=== PATIENT | female | born 1960 | race African-American/Black ===

== ENCOUNTER 2023-10-15 10:54 | Inpatient (IN) | payer MEDICAID, OTHER ==
[~2023-10-15] VITALS: Ht 162.6 cm; Wt 79.2 kg
[~2023-10-15 10:54] MED LIST: ACET-6 PO; BISA-65 PO; HYDR-3682 PO; HYDR-4798 PO; MIRT1TAB PO; RISP1TAB63 PO; SOLI10TA39 PO
[2023-10-15 12:02] LABS: Basophils # (auto) 0 10 ^3/uL (0-0.2); Basophils % (auto) 0.3 % (0.0-2.0); Eosinophils # (auto) 0 10 ^3/uL (0-0.8); Hematocrit 35.3 % (36.0-46.0); Hemoglobin 11.6 g/dL (12.2-16.2); Lymphocytes # (auto) 1.4 10 ^3/uL (0.4-5.4); Lymphocytes % (auto) 15.5 % (10.0-50.0); Mean Corpuscular Hgb Conc. 32.8 g/dL (32.0-36.0); Mean Corpuscular Volume 82.3 fL (80.0-100.0); Monocytes # (auto) 0.6 10 ^3/uL (0-1.3); Neutrophils % (auto) 77.2 % (37.0-80.0); Nucleated Red Blood Cells % 0.1 %; Platelet Count (auto) 366 10^3/uL (140-450); Red Blood Cells 4.29 10^6/uL (4.0-5.20); Red Cell Distribution Width 15.5 % (11.8-14.3)
[2023-10-15 12:21] LABS: Acetaminophen < 2.0 UG/ML (10.0-20.0); Alanine Aminotransferase 21 U/L (7-40); Albumin 4.8 g/dL (3.2-4.8); Alkaline Phosphatase 82 U/L (46-116); Anion Gap 4 (5-15); Aspartate Aminotransferase 54 U/L (13-40); BUN/Creatinine Ratio 16.8 (10.0-20.0); Blood Alcohol < 3.0 mg/dL (<10); Blood Urea Nitrogen 30 mg/dL (9-23); Calcium 9.8 mg/dL (8.7-10.4); Carbon Dioxide 27 mmol/L (20-30); Chloride 103 mmol/L (98-107); Glucose 130 mg/dL (74-106); Potassium 3.8 mmol/L (3.5-5.1); Sodium 134 mmol/L (136-145)
[2023-10-15 12:22] LABS: Bilirubin, Total 0.5 mg/dL (0.2-1.0)
[2023-10-15 12:26] LABS: Salicylate < 3.0 mg/dL (2.8-20.0)
[2023-10-15 12:42] VITALS: PULSE 86; RESP 18; O2SAT 95
[2023-10-15] MEDS ORDERED: DEXTROSE (50%) 50ML SYRG IV PRN (14:30)
[2023-10-15] MEDS ORDERED: ONDANSETRON HCL 4 MG/2 ML VIAL IV PRN (14:30)
[2023-10-15] MEDS ORDERED: DOCUSATE SOD 100 MG CAP PO PRN (14:30)
[2023-10-15] MEDS ORDERED: ACETAMINOPHEN 325 MG TAB PO PRN (14:30)
[2023-10-15] MEDS: SODIUM CHLORIDE 0.9% 1,000 ML IV SCH (14:30)
[2023-10-15] MEDS ORDERED: MORPHINE SULFATE INJ 2 MG/ml SYRG IV PRN (15:30)
[2023-10-15] MEDS ORDERED: NITROGLYCERIN 0.4 MG SL TAB SL PRN (15:30)
[2023-10-15 16:42] LABS: INR 1.05 (0.9-1.15); Partial Thromboplastin Time 28.5 SEC (24.5-34.5); Prothrombin Time 11.1 sec (9.3-11.8)
[2023-10-15 16:44] LABS: Lactic Acid w/Reflex 2.6 mmol/L (0.4-2.0)
[2023-10-15] MEDS: ACCU-CHEK COMFORT CURVE STRIP VI SCH (17:00)
[2023-10-15] MEDS: InsuLIN REG 1unit/0.01ml Soln (100units/ml) SC SCH (17:00)
[2023-10-15 17:11] LABS: Magnesium 1.6 mg/dL (1.6-2.6)
[2023-10-15 17:12] LABS: Phosphorus 4.1 mg/dL (2.4-5.1)
[2023-10-15 18:54] VITALS: PULSE 80; RESP 20; O2SAT 99
[2023-10-15] MEDS: HYDROcodone-ACET 5/325MG TAB PO PRN (22:32)
[2023-10-16] VITALS (8 sets, daily range): BP systolic 103–164; BP diastolic 66–77; PULSE 62–93; RESP 14–96; TEMP 97.8–98.3; O2SAT 95–98
[2023-10-16 09:15] LABS: Basophils # (auto) 0 10 ^3/uL (0-0.2); Basophils % (auto) 0.5 % (0.0-2.0); Eosinophils # (auto) 0.1 10 ^3/uL (0-0.8); Eosinophils % (auto) 1.7 % (0.0-7.0); Hematocrit 30.4 % (36.0-46.0); Hemoglobin 10.1 g/dL (12.2-16.2); Lymphocytes # (auto) 2.1 10 ^3/uL (0.4-5.4); Lymphocytes % (auto) 31.4 % (10.0-50.0); Mean Corpuscular Hemoglobin 27.2 pg (28.0-32.0); Mean Corpuscular Hgb Conc. 33.1 g/dL (32.0-36.0); Mean Corpuscular Volume 82.2 fL (80.0-100.0); Monocytes # (auto) 0.5 10 ^3/uL (0-1.3); Monocytes % (auto) 7.3 % (0.0-12.0); Neutrophils # (auto) 3.9 10 ^3/uL (1.6-8.6); Neutrophils % (auto) 59.1 % (37.0-80.0); Nucleated Red Blood Cells % 0.1 %; Platelet Count (auto) 326 10^3/uL (140-450); Red Blood Cells 3.71 10^6/uL (4.0-5.20); Red Cell Distribution Width 15.7 % (11.8-14.3); White Blood Cell 6.6 10^3/uL (4.4-10.8)
[2023-10-16 09:33] LABS: Alanine Aminotransferase 17 U/L (7-40); Albumin 3.8 g/dL (3.2-4.8); Alkaline Phosphatase 65 U/L (46-116); Anion Gap 3 (5-15); Aspartate Aminotransferase 42 U/L (13-40); BUN/Creatinine Ratio 19.8 (10.0-20.0); Blood Urea Nitrogen 20 mg/dL (9-23); Calcium 8.8 mg/dL (8.7-10.4); Carbon Dioxide 27 mmol/L (20-30); Chloride 110 mmol/L (98-107); Glucose 94 mg/dL (74-106); Potassium 3.4 mmol/L (3.5-5.1); Sodium 140 mmol/L (136-145)
[2023-10-16 09:34] LABS: Bilirubin, Total 0.6 mg/dL (0.2-1.0); Total Protein 6.3 g/dL (5.7-8.2)
[2023-10-16] MEDS: ASPirin 81 mg TAB PO SCH (10:00)
[2023-10-16] MEDS: FAMOTIDINE (10MG/ML) 2ML VL IV SCH (10:05)
[2023-10-16] MEDS: POTASSIUM EFFERVESENT TAB 25 MEQ PO ONE (12:38)
[2023-10-16] MEDS ORDERED: HYDR1CAP27 PO (12:46)
[2023-10-16] MEDS ORDERED: LOSA-535 PO (12:46)
[2023-10-16] MEDS ORDERED: GABA-1250 PO (12:46)
[2023-10-16] MEDS ORDERED: METF-370 PO (12:49)
[2023-10-16] MEDS ORDERED: AMLO1TAB23 PO (12:49)
[2023-10-16] MEDS ORDERED: LORA-483 PO (12:49)
[2023-10-16] MEDS ORDERED: ATOR-47 PO (12:49)
[2023-10-16] MEDS ORDERED: DOCU-265 PO (12:50)
[2023-10-16] MEDS ORDERED: DULO1CAP4 PO (12:50)
[2023-10-16] MEDS ORDERED: CHOL20003 PO (12:50)
[2023-10-16] MEDS ORDERED: IBUP1TAB5 PO (12:52)
[2023-10-16] MEDS ORDERED: ASPI-325 PO (12:52)
[2023-10-16] MEDS ORDERED: METO25TA93 PO (12:52)
[2023-10-16] MEDS ORDERED: FERR-7 PO ×2 (13:29→13:32)
[2023-10-16] MEDS ORDERED: FERR325T20 PO (13:31)
[2023-10-16] MEDS: ATORVASTATIN 20 MG TAB PO SCH (22:05)
[2023-10-17] VITALS (7 sets, daily range): BP systolic 130–176; BP diastolic 41–89; PULSE 62–88; RESP 16–96; TEMP 36.7; O2SAT 95–99
[2023-10-17 08:00] LABS: Basophils # (auto) 0 10 ^3/uL (0-0.2); Basophils % (auto) 0.4 % (0.0-2.0); Eosinophils # (auto) 0.1 10 ^3/uL (0-0.8); Eosinophils % (auto) 2.4 % (0.0-7.0); Hematocrit 33.2 % (36.0-46.0); Hemoglobin 10.7 g/dL (12.2-16.2); Lymphocytes # (auto) 1.8 10 ^3/uL (0.4-5.4); Lymphocytes % (auto) 29.5 % (10.0-50.0); Mean Corpuscular Hemoglobin 26.9 pg (28.0-32.0); Mean Corpuscular Hgb Conc. 32.3 g/dL (32.0-36.0); Mean Corpuscular Volume 83.5 fL (80.0-100.0); Monocytes # (auto) 0.4 10 ^3/uL (0-1.3); Monocytes % (auto) 5.9 % (0.0-12.0); Neutrophils # (auto) 3.8 10 ^3/uL (1.6-8.6); Neutrophils % (auto) 61.8 % (37.0-80.0); Nucleated Red Blood Cells % 0.1 %; Platelet Count (auto) 322 10^3/uL (140-450); Red Blood Cells 3.98 10^6/uL (4.0-5.20); Red Cell Distribution Width 15.7 % (11.8-14.3); White Blood Cell 6.1 10^3/uL (4.4-10.8)
[2023-10-17 08:16] LABS: Anion Gap 5 (5-15); Carbon Dioxide 24 mmol/L (20-30); Chloride 109 mmol/L (98-107); Potassium 4.1 mmol/L (3.5-5.1); Sodium 138 mmol/L (136-145)
[2023-10-17 08:17] LABS: Calcium 9.1 mg/dL (8.7-10.4)
[2023-10-17 08:23] LABS: BUN/Creatinine Ratio 15.8 (10.0-20.0); Blood Urea Nitrogen 15 mg/dL (9-23); Glucose 113 mg/dL (74-106)
[2023-10-17] MEDS ORDERED: AUG875T PO (15:48)
[2023-10-17] MEDS: hydrALAZINE HCL 20 MG/ML VL IV PRN (16:08)
== END 2023-10-17 18:55 | disposition home or self-care (01) | DRG 812 ==
LOC: EDBD 10:54 → ER 11:06 → TELE 15:19 → TELE-CENTR 10-16 05:52
PROVIDERS: ADMIT Internal Medicine Geriatric Medicine; ATTEND Internal Medicine Geriatric Medicine
DX: T50.991A Poisoning by other drugs, medicaments and biological substances, accidental (unintentional), initial encounter (principal); N17.0 Acute kidney failure with tubular necrosis; G92.8 Other toxic encephalopathy; E87.1 Hypo-osmolality and hyponatremia; I69.351 Hemiplegia and hemiparesis following cerebral infarction affecting right dominant side; E11.9 Type 2 diabetes mellitus without complications; D64.9 Anemia, unspecified; I10 Essential (primary) hypertension; E87.6 Hypokalemia; Z99.3 Dependence on wheelchair; Y92.89 Other specified places as the place of occurrence of the external cause
CPT/HCPCS: 36415; 36600; 70450; 71045; 76775; 80048; 80053; 80061; 80320; 80329; 82140; 82306; 82607; 82805; 82962; 83036; 83605; 83735; 83930; 84100; 84443; 84484; 85025; 85610; 85730; 96360; 97163; G0378; J1815; J3490

== ENCOUNTER 2024-05-02 10:56 | Inpatient (IN) | payer MEDICAID ==
[~2024-05-02] VITALS: Ht 160 cm; Wt 67.9 kg
[~2024-05-02 10:56] MED LIST changes: +AMLO1TAB23 PO; +ASPI-325 PO; +ATOR-47 PO; +AUG875T PO; +CHOL20003 PO; +DOCU-265 PO; +DULO1CAP4 PO; +FERR-7 PO; +GABA-1250 PO; +LORA-483 PO; +LOSA-535 PO; +METF-370 PO; +METO25TA93 PO
--- NOTE | 2024-05-02 12:10 | DVH ---
CHEST RADIOGRAPH Indication: gen weak Technique: Single frontal view of the chest was obtained COMPARISON: XY CHEST XRAY 1 VIEW on DOS: 10/15/23 FINDINGS: Lines and Tubes: None Lungs: Diffuse increased interstitial prominence. Pleura: No effusion. No pneumothorax. Cardiomediastinal contours: Unremarkable Bones: Unremarkable IMPRESSION: Possible mild pulmonary vascular congestion.
--- NOTE | 2024-05-02 12:17 | ED.PDOC ---
History of Present Illness HPI Comments 63-year-old female with a history of hypertension, diabetes, CVA with residual right-sided weakness and recently diagnosed abnormal cervical and lumbar spine MRI findings, brought in by sister for evaluation of worsening neck pain for the last 2 weeks, associated with hematuria, malodorous urine, and decreased urine output over the past 2 months. Denies any fever, abdominal pain, diarrhea or dysuria. She has had chronic nausea and vomiting, associated with weight loss. Patient was seen by her neurologist 5 days ago, was told that her recent MRI performed 2-3 weeks ago showed a mass, and she was referred for urgent ortho/spine surgical evaluation. In the meantime, patient has had worsening ongoing neck pain, so was in contact with her neurologist who advised her to go to any ER. Patient also notes she was ambulating up until about 2-3 weeks ago. She states she has been unable to ambulate for the last 2-3 weeks due to generalized weakness. There was residual right lower extremity weakness after her stroke, however she was able to ambulate independently despite this. Chief Complaint: Urinary Time Seen by MD: 11:26 Reviewed Notes: Nurses Notes, Medications, Allergies Allergies: Coded Allergies: NO KNOWN ALLERGIES (Unverified , 10/15/23) Home Meds Active Scripts Amoxicillin & Pot Clavulanate (AUGMENTIN TABLET) 875 Mg Tb, 875 MG PO BID for 7 Days, #14 TAB Prov:ALLYSSA SANTOS RESIDENT 10/17/23 Reported Medications Solifenacin Succinate (Solifenacin Succinate) 10 Mg Tab, 1 TAB PO DAILY for 30 Days, #30 10/17/23 Hydrocodone-Acetaminophen (Hydrocodone Bitartrate/AC 10-325 mg) 1 Tab Tab, 1 TAB PO BID for 30 Days, #60 10/17/23 Acetaminophen (Acetaminophen Extra Stren) 500 Mg Tab, 1 TAB PO TID for 30 Days, #90 10/17/23 Bisacodyl (Bisacodyl Ec) 5 Mg Tab, 1 TAB PO DAILY for 30 Days, #30 10/17/23 Hydroxyzine Hcl (Hydroxyzine Hcl) 25 Mg Tab, 1 TAB PO QID for 30 Days, #120 10/17/23 Ferrous Sulfate (Iron) 325 Mg Tab, 325 MG PO DAILY, TAB 10/16/23 Risperidone (Risperidone) 1 Mg Tab, 1 TAB PO DAILY for 30 Days, #30 10/16/23 Mirtazapine (Mirtazapine Oral Disintegrating Tablet) 7.5 Mg Tab, 1 TAB PO DAILY for 30 Days, #30 24 Metoprolol Succinate (Metoprolol Succinate Er) 25 Mg Tab, 1 TAB PO DAILY 10/16/23 Aspirin (Aspirin Low Dose) 81 Mg Tab, 1 TAB PO DAILY 10/16/23 Docusate Sodium (Docusate Sodium) 100 Mg Cap, 1 CAP PO BID 10/16/23 Cholecalciferol (Vitamin D-3 Super Strengt) 2,000 Unit Tab, 1 TAB PO DAILY 10/16/23 Duloxetine HCl (Duloxetine HCl) 20 Mg Cap, 1 CAP PO BID 10/16/23 Metformin Hydrochloride (Metformin Hcl) 500 Mg Tab, 1 TAB PO BID 10/16/23 Atorvastatin Calcium (ATORVASTATIN CALCIUM) 80 Mg Tab, 1 TAB PO DAILY 10/16/23 Amlodipine Besylate (Amlodipine Besylate) 10 Mg Tab, 1 TAB PO DAILY 10/16/23 Loratadine (CLARITIN TABLET) 10 Mg Tb, 1 TAB PO DAILY 10/16/23 Losartan Potassium (Losartan Potassium) 100 Mg Tab, 1 TAB PO DAILY 10/16/23 Gabapentin (Gabapentin) 300 Mg Cap, 1 CAP PO TID 10/16/23 Information Source: Patient, Relative Mode of Arrival: Wheelchair Severity: Moderate Timing: Weeks Duration: Since onset Prehospital treatment: None Past Medical History PAST MEDICAL HISTORY: CVA (right sided defecits), Depression, DM, HTN Past Medical History (Other): Bipolar Surgical History: Denies all surgeries CABIN SUPERVISOR History: No Pertinent CABIN SUPERVISOR History Family History Family History: Reviewed,noncontributory to illness, Unknown Social History Smoker: Non-Smoker Alcohol: Denies ETOH Use Drugs: Denies Drug Use Lives In: Home EENTM: denies: blurred vision, double vision, ear bleeding, ear discharge, ear drainage, ear pain, ear ringing, eye pain, eye redness, hearing loss, mouth pain, mouth swelling, nasal discharge, nose bleeding, nose congestion, nose pain, photophobia, tearing, throat pain, throat swelling, voice changes, others All Other Systems: Reviewed and Negative (Comprehensive systems review obtained and negative except for what is stated in the HPI.) Physical Exam General Appearance: No Apparent Distress HEENT: PERRL/EOMI Neck: Full Range of Motion, Normal Inspection, Supple, Other (Mild diffuse midline and paraspinal tenderness to palpation) Respiratory: Chest Non-Tender, No Respiratory Distress, Normal Breath Sounds Cardiovascular: No Edema, No JVD, Regular Rate/Rhythm Breast Exam: Deferred Gastrointestinal: Non Tender, Soft Genitalia: Deferred Pelvic: Deferred Rectal: Deferred Extremities: Non-tender, No pedal edema, Other (Right upper extremity contracture) Neurologic: Alert (Oriented x4), Normal Affect, Normal Mood, Other (Chronic right upper extremity contracture. Moves left upper extremity and bilateral lower extremities. Motor strength 4/5 bilateral lower extremities. Unable to stand.) Cerebellar Function: NOT DONE Reflexes: NOT DONE Skin: Dry, Normal Color, Warm Lymphatic: NOT DONE Was a procedure done? Was a procedure done?: No Differential Dx Considerations may include: CVA, TIA, spinal cord compression, electrolyte imbalance, dehydration/CAREY/renal failure, UTI, sepsis, among others X-Ray, Labs, Meds, VS Vital Signs Date Time Temp Pulse Resp B/P (MAP) Pulse Ox O2 Delivery O2 Flow Rate FiO2 05/02/24 14:00 64 15 95 Room Air* 0 21 05/02/24 13:37 64 15 149/77 05/02/24 13:37 97.8 64 15 149/77 (101) 95 97.8 05/02/24 12:43 63 20 153/71 05/02/24 12:01 98.7 66 19 133/78 (96) 97 Lab Test 05/02/24 13:54 05/02/24 12:07 05/02/24 11:21 Range/Units Troponin I High Sensitivity 3 L 3 L </=34 ng/L C-Reactive Protein High Sensitivity 0.38 <1.0 mg/dL White Blood Count 5.6 4.4-10.8 10^3/uL Red Blood Count 4.86 4.0-5.20 10^6/uL Hemoglobin 13.5 12.2-16.2 g/dL Hematocrit 40.4 36.0-46.0 % Mean Corpuscular Volume 83.2 80.0-100.0 fL Mean Corpuscular Hemoglobin 27.9 L 28.0-32.0 pg Mean Corpuscular Hemoglobin Concent 33.5 32.0-36.0 g/dL Red Cell Distribution Width 16.5 H 11.8-14.3 % Platelet Count 378 140-450 10^3/uL Mean Platelet Volume 7.1 6.9-10.8 fL Neutrophils (%) (Auto) 53.4 37.0-80.0 % Lymphocytes (%) (Auto) 38.7 10.0-50.0 % Monocytes (%) (Auto) 2.5 0.0-12.0 % Eosinophils (%) (Auto) 3.1 0.0-7.0 % Basophils (%) (Auto) 2.3 H 0.0-2.0 % Neutrophils # (Auto) 3.0 1.6-8.6 10 ^3/uL Lymphocytes # (Auto) 2.2 0.4-5.4 10 ^3/uL Monocytes # (Auto) 0.1 0-1.3 10 ^3/uL Eosinophils # (Auto) 0.2 0-0.8 10 ^3/uL Basophils # (Auto) 0.1 0-0.2 10 ^3/uL Nucleated Red Blood Cells 0.2 % Sodium Level 140 136-145 mmol/L Potassium Level 3.7 3.5-5.1 mmol/L Chloride Level 105 98-107 mmol/L Carbon Dioxide Level 28 20-31 mmol/L Anion Gap 7 5-15 Blood Urea Nitrogen 12 9-23 mg/dL Creatinine 0.90 0.550-1.02 mg/dL Glomerular Filtration Rate Calc 71 >90 mL/min BUN/Creatinine Ratio 13.3 10.0-20.0 Serum Glucose 96 74-106 mg/dL Hemoglobin A1c 6.0 H <5.7 % A1C Lactic Acid Level 2.7 *H 0.4-2.0 mmol/L Calcium Level 10.2 8.7-10.4 mg/dL B-Type Natriuretic Peptide 117.04 0-100 pg/mL Urine Color Yellow Yellow Urine Clarity Cloudy H Clear Urine pH 6.0 5.0-9.0 Urine Specific [place] 1.018 1.001-1.035 Urine Protein 1+ H Negative Urine Ketones Negative Negative Urine Blood 2+ H Negative /uL Urine Nitrite 2+ H Negative Urine Bilirubin Negative Negative Urine Urobilinogen Normal Negative mg/dL Urine Leukocyte Esterase 3+ Negative /uL Urine RBC 30 0 - 4 /hpf Urine WBC Clumps Present None Seen /hpf Urine Microscopic WBC 1515 H 0-5 /HPF Urine Squamous Epithelial Cells Few <5 /hpf Urine Bacteria Few H None Seen /hpf Urine Glucose Normal Normal mg/dL Current Medications Medications (Trade) Dose Ordered Sig/Kelechi Route Start Time Stop Time Status Last Admin Ceftriaxone Sodium 50 ml @ 100 mls/hr ONCE ONCE IV 05/02/24 11:45 05/02/24 12:14 DC 05/02/24 12:42 Morphine Sulfate 4 mg ONCE ONCE IV 05/02/24 11:45 05/02/24 11:50 DC 05/02/24 12:43 Ondansetron HCl (Zofran) 4 mg ONCE ONCE IV 05/02/24 11:45 05/02/24 11:50 DC 05/02/24 12:44 Methylprednisolone Sodium Succinate (Solu Medrol) 125 mg ONCE ONCE IV 05/02/24 12:30 05/02/24 12:38 DC 05/02/24 12:43 l X-Ray, Labs, Meds, VS Comment 63-year-old female with a history of hypertension, diabetes, CVA with residual right-sided weakness and recently diagnosed abnormal cervical and lumbar spine mri findings brought in by sister for evaluation of worsening neck pain for the last 2 weeks, associated with hematuria, malodorous urine, and decreased urine output over the past 2 months. Vitals unremarkable Exam remarkable for bilateral lower extremity weakness MRI report dated 04/22/2024 reviewed by me with findings as follows: Cervical spine without contrast: Significant multilevel cervical spondylosis as described in detail above. This most important at C3-4 with significant central canal stenosis and cord compression. There does appear to be some likely subtle cord signal 2 level indicative of likely compressive myelomalacia. Less prominent cord flattening also noted at C2-3, C4-5, C5-6 and C6-7. Multilevel neural foraminal stenosis. This is felt to be significant bilaterally at C3-4 and on the left at C6-7. Lumbar spine without contrast: Multilevel lumbar spondylosis as discussed in detail above. This is most significant at L4-L5. There is severe central canal stenosis at this level with significant compression involving traversing nerve roots. There is also significant right neural foraminal stenosis and compression right L5 nerve root. Multilevel type 1 Modic changes most prominent at L4-L5. Abnormal alignment with scoliotic curvature and subtle retrolisthesis of L2 on L3. CBC, metabolic panel, BNP and troponin unremarkable, UA abnormal consistent with UTI, lactate 2.7 Case discussed with ortho, spine surgeon Dr. Fierro, who recommended the patient be started on IV Solu-Medrol, be placed in a soft C-collar, and be admitted for surgery. Patient treated with the following in the ED: Morphine 4 mg IV, Zofran 4 mg IV, Solu-Medrol 125 mg IV, Rocephin 1 g IV On re-evaluation, pain has improved, vitals were stable. Plan is to admit the patient for control, IV antibiotics, and ortho/spine evaluation. Time of 1ST Reevaluation: 11:56 Reevaluation 1ST: Unchanged Patient Education/Counseling: Diagnosis, Treatment, Prognosis Family Education/Counseling: Diagnosis, Treatment, Prognosis Departure 1 Departure Time of Disposition: 12:28 Impression: Primary Impression: Cervical spinal cord compression Additional Impressions: Lumbar nerve root compression UTI (urinary tract infection) Qualified Codes: N39.0 - Urinary tract infection, site not specified Disposition: ADMITTED INPATIENT Admit to: Tele Condition: Guarded Critical Care Note Critical Care Time?: No Stability Stability form required: No Heart Score Heart Score: Heart Score Response (Comments) Value History N/A 0 EKG N/A 0 Age N/A 0 Risk Factors N/A 0 Troponin N/A 0 Total 0 I personally scribed for PAYTON LOZANO MD ([email or web address]) on 05/02/24 at 12:20. Electronically submitted by Torsten Borges ([email or web address]). PAYTON LOZANO MD May 02, 2024 12:17
[2024-05-02 12:27] LABS: Basophils # (auto) 0.1 10 ^3/uL (0-0.2); Basophils % (auto) 2.3 % (0.0-2.0); Eosinophils # (auto) 0.2 10 ^3/uL (0-0.8); Eosinophils % (auto) 3.1 % (0.0-7.0); Hematocrit 40.4 % (36.0-46.0); Hemoglobin 13.5 g/dL (12.2-16.2); Lymphocytes # (auto) 2.2 10 ^3/uL (0.4-5.4); Lymphocytes % (auto) 38.7 % (10.0-50.0); Mean Corpuscular Hemoglobin 27.9 pg (28.0-32.0); Mean Corpuscular Hgb Conc. 33.5 g/dL (32.0-36.0); Mean Corpuscular Volume 83.2 fL (80.0-100.0); Monocytes # (auto) 0.1 10 ^3/uL (0-1.3); Monocytes % (auto) 2.5 % (0.0-12.0); Neutrophils % (auto) 53.4 % (37.0-80.0); Nucleated Red Blood Cells % 0.2 %; Platelet Count (auto) 378 10^3/uL (140-450); Red Blood Cells 4.86 10^6/uL (4.0-5.20); Red Cell Distribution Width 16.5 % (11.8-14.3); White Blood Cell 5.6 10^3/uL (4.4-10.8)
[2024-05-02 12:37] LABS: Chloride 105 mmol/L (98-107); Potassium 3.7 mmol/L (3.5-5.1); Sodium 140 mmol/L (136-145)
[2024-05-02 12:38] LABS: Anion Gap 7 (5-15); Carbon Dioxide 28 mmol/L (20-31)
[2024-05-02 12:39] LABS: Calcium 10.2 mg/dL (8.7-10.4)
[2024-05-02] MEDS: cefTRIAXone 1GM/50ML D5W 50 ML IV ONE (12:42)
[2024-05-02 12:43] LABS: Glucose 96 mg/dL (74-106)
[2024-05-02] MEDS: MORPHINE SULFATE 4 MG/ML SYR/VIAL IV ONE (12:43)
[2024-05-02] MEDS: methylPREDNISolone SOD SUCC 125 MG/2 ML VL IV ONE (12:43)
[2024-05-02 12:44] LABS: BUN/Creatinine Ratio 13.3 (10.0-20.0); Blood Urea Nitrogen 12 mg/dL (9-23)
[2024-05-02] MEDS: ONDANSETRON HCL 4 MG/2 ML VIAL IV ONE (12:44)
[2024-05-02 12:51] LABS: Lactic Acid w/Reflex 2.7 mmol/L (0.4-2.0)
[2024-05-02 14:00] VITALS: PULSE 64; RESP 15; O2SAT 95
[2024-05-02] MEDS ORDERED: HYDROcodone-ACET 5/325MG TAB PO PRN (14:15)
[2024-05-02] MEDS ORDERED: ACETAMINOPHEN 325 MG TAB PO PRN (14:15)
[2024-05-02] MEDS ORDERED: ONDANSETRON HCL 4 MG/2 ML VIAL IV PRN (14:15)
[2024-05-02 14:32] LABS: Urine Bacteria FEW /hpf (None Seen); Urine Blood 2+ /uL (Negative); Urine Clarity Cloudy (Clear); Urine Color Yellow (Yellow); Urine Protein, UAD 1+ (Negative); Urine Specific Gravity 1.018 (1.001-1.035); Urine Squamous Epithelial Cell FEW /hpf (<5); Urine Urobilinogen Normal (Negative); Urine WBC 1515 /HPF (0-5); Urine WBC Clumps PRESENT /hpf (None Seen)
[2024-05-02] MEDS ORDERED: DEXTROSE (50%) 50ML SYRG IV PRN (14:45)
--- NOTE | 2024-05-02 14:49 | DVHHP2 ---
History of Present Illness Reason for Visit: Neck and back pain History of Present Illness Nani Hartley is a 63-year-old female with past medical history of hypertension, diabetes, and CVA with right-sided deficits who presents to the ED with neck and lower back pain x2 weeks. Patient's friend Andreas who is also the caregiver states that the patient has not been able to walk for about 2-3 weeks due to generalized weakness. Patient's friend also states that saw the neurologist yesterday and was advised to come in to the ED to get an evaluation for a surgical consult from spine sx due to the imaging results that the neurologist saw on the MRI. Upon examination patient has right upper arm is contracted and also unable to move right lower extremity. Per patient's friend Andreas patient is only able to reply with yes. She also reports that patient has been wheelchair-bound for the last couple of weeks. Patient's friend injury also reports malodorous urine along with poor appetite. 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 Endocrine: Diabetes Past Surgical History: None Family History: Other (Unknown per caregiver) Smoke: No ALCOHOL: none Drugs: None Lives: Friends Domestic Violence: Neg Review of Systems Constitutional: Yes: Weakness Gastrointestinal: Nausea, Vomiting Genitourinary: Other (Malodorous urine) Musculoskeletal: neck pain, back pain Allergies: Coded Allergies: NO KNOWN ALLERGIES (Unverified , 10/15/23) Medications Current Medications Medications Dose Ordered Sig/Kelechi Route Start Time Stop Time Status Last Admin Dose Admin Acetaminophen/ Hydrocodone Bitart 1 tab Q4HP PRN PO 05/02/24 14:15 Ondansetron HCl 4 mg Q4HP PRN IV 05/02/24 14:15 Enoxaparin Sodium 40 mg DAILY SC 05/03/24 10:00 Acetaminophen 650 mg Q6HP PRN PO 05/02/24 14:15 Ceftriaxone Sodium 50 ml @ 100 mls/hr DAILY@09 IV 05/03/24 09:00 UNV Exam Vital Signs Vital Signs Date Time Temp Pulse Resp B/P (MAP) Pulse Ox O2 Delivery O2 Flow Rate FiO2 05/02/24 13:37 64 15 149/77 05/02/24 12:01 98.7 97 General Appearance: Alert, Cooperative, No acute distress HEENT: Atraumatic Respiratory: Clear to auscultation, Normal air movement Cardiovascular: Normal S1, Normal S2, No murmurs Abdominal: Soft Extremities: No cyanosis Psych/Mental Status: Mental status NL Labs/Xrays Labs Test 05/02/24 13:54 05/02/24 12:07 05/02/24 11:21 Range/Units White Blood Count 5.6 4.4-10.8 10^3/uL Red Blood Count 4.86 4.0-5.20 10^6/uL Hemoglobin 13.5 12.2-16.2 g/dL Hematocrit 40.4 36.0-46.0 % Mean Corpuscular Volume 83.2 80.0-100.0 fL Mean Corpuscular Hemoglobin 27.9 L 28.0-32.0 pg Mean Corpuscular Hemoglobin Concent 33.5 32.0-36.0 g/dL Red Cell Distribution Width 16.5 H 11.8-14.3 % Platelet Count 378 140-450 10^3/uL Mean Platelet Volume 7.1 6.9-10.8 fL Neutrophils (%) (Auto) 53.4 37.0-80.0 % Lymphocytes (%) (Auto) 38.7 10.0-50.0 % Monocytes (%) (Auto) 2.5 0.0-12.0 % Eosinophils (%) (Auto) 3.1 0.0-7.0 % Basophils (%) (Auto) 2.3 H 0.0-2.0 % Neutrophils # (Auto) 3.0 1.6-8.6 10 ^3/uL Lymphocytes # (Auto) 2.2 0.4-5.4 10 ^3/uL Monocytes # (Auto) 0.1 0-1.3 10 ^3/uL Eosinophils # (Auto) 0.2 0-0.8 10 ^3/uL Basophils # (Auto) 0.1 0-0.2 10 ^3/uL Nucleated Red Blood Cells 0.2 % Sodium Level 140 136-145 mmol/L Potassium Level 3.7 3.5-5.1 mmol/L Chloride Level 105 98-107 mmol/L Carbon Dioxide Level 28 20-31 mmol/L Anion Gap 7 5-15 Blood Urea Nitrogen 12 9-23 mg/dL Creatinine 0.90 0.550-1.02 mg/dL Glomerular Filtration Rate Calc 71 >90 mL/min BUN/Creatinine Ratio 13.3 10.0-20.0 Serum Glucose 96 74-106 mg/dL Lactic Acid Level 2.7 *H 0.4-2.0 mmol/L Calcium Level 10.2 8.7-10.4 mg/dL B-Type Natriuretic Peptide 117.04 0-100 pg/mL CHEST RADIOGRAPH Indication: gen weak Technique: Single frontal view of the chest was obtained COMPARISON: XY CHEST XRAY 1 VIEW on DOS: 10/15/23 FINDINGS: Lines and Tubes: None Lungs: Diffuse increased interstitial prominence. Pleura: No effusion. No pneumothorax. Cardiomediastinal contours: Unremarkable Bones: Unremarkable IMPRESSION: Possible mild pulmonary vascular congestion. Assessment/Plan Assessment/Plan Assessment Intractable neck and back pain Intractable nausea and vomiting with weight loss C3-4 central canal stenosis and cord compression on outside MRI imaging Lactic acidosis likely due to UTI History of hypertension History of diabetes type 2 History of CVA with right-sided hemiplegia Plan [facility] IV steroids given ED Antiemetics Pain management IV antibiotics-ceftriaxone BNP Hemoglobin A1c ISS and Accu-Cheks Lactic acid ESR CRP Lovenox Spine surgery consult -- plan for surgery possibly Sunday Diet Discussed plan of care with patient, caregiver, and nurse Home medications resumed Plan discussed with: Patient, Other My Orders Orders - JOYCELYN ISLAS [employer]SMISSION AND COORDINATION ENGINEER Procedure Category Date Status Time Admit ADMIT 05/02/24 Transmitted 14:10 Allergies KENNEY 05/02/24 In Process 14:10 Code Status CODE 05/02/24 Transmitted 14:10 Hydrocodone-Acet PHA 05/02/24 In Process 5/325mg Tab ([place] 14:15 Ondansetron Hcl PHA 05/02/24 In Process (Zofran) 14:15 Complete Blood Count LAB 05/03/24 Verified 04:00 Comprehensive LAB 05/03/24 Verified Metabolic Panel 04:00 Cardiac DIET 05/02/24 Transmitted Diet-2gna,Lofat,Lochol Dinner Acetaminophen Tablet PHA 05/02/24 In Process (Tylenol Tablet) 14:[address] Tristian CONS 05/02/24 Transmitted [place](Spine) 14:10 Ceftriaxone 1gm/50ml PHA 05/03/24 Logged D5w (Rocephin) 09:00 Enoxaparin Sodium PHA 05/03/24 In Process (Lovenox) 10:00 Erythrocyte LAB 05/02/24 Transmitted Sedimentation Rate 14:25 C-Reactive Protein LAB 05/02/24 Transmitted 14:25 Date of Service: May 02, 2024 Billing Provider: JOYCELYN ISLAS Common Visit Codes: [id number] INP/OBS CARE (HIGH) JOYCELYN ISLAS May 02, 2024 14:49
[2024-05-02 17:09] LABS: Erythrocyte Sedimentation Rate 10 mm/hr (0-20)
[2024-05-02] MEDS: InsuLIN REG 1unit/0.01ml Soln (100units/ml) SC SCH (17:25)
[2024-05-02] MEDS: ACCU-CHEK COMFORT CURVE STRIP VI SCH (17:26)
--- NOTE | 2024-05-02 17:55 | DVHINCON2 ---
Consultation - Spinal Surgery Date Seen: May 02, 2024 Referring Physician Referring Physician Attending Doctor: Zita Lora [facility] Reason for Consultation Reason for Visit: Neck and back pain History of Present Illness History of Present Illness History of Present Illness Nani Hartley is a 63-year-old female with past medical history of hypertension, diabetes, and CVA with right-sided deficits who presents to the ED with neck and lower back pain x2 weeks. Patient's friend Andreas who is also the caregiver states that the patient has not been able to walk for about 2-3 weeks due to generalized weakness. Patient's friend also states that saw the neurologist yesterday and was advised to come in to the ED to get an evaluation for a surgical consult from spine sx due to the imaging results that the neurologist saw on the MRI. Upon examination patient has right upper arm is contracted and also unable to move right lower extremity. Per patient's friend Andreas patient is only able to reply with yes. She also reports that patient has been wheelchair-bound for the last couple of weeks. Patient's friend injury also reports malodorous urine along with poor appetite. 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 Endocrine: Diabetes Past Surgical History: None Family and Social History Family and Social History Family History: Other (Unknown per caregiver) Smoke: No ALCOHOL: none Drugs: None Lives: Friends Domestic Violence: Neg Allergies and medications Allergies: Coded Allergies: NO KNOWN ALLERGIES (Unverified , 10/15/23) Home Meds Active Scripts Amoxicillin & Pot Clavulanate (AUGMENTIN TABLET) 875 Mg Tb, 875 MG PO BID for 7 Days, #14 TAB Prov:ALLYSSA SANTOS RESIDENT 10/17/23 Reported Medications Solifenacin Succinate (Solifenacin Succinate) 10 Mg Tab, 1 TAB PO DAILY for 30 Days, #30 10/17/23 Hydrocodone-Acetaminophen (Hydrocodone Bitartrate/AC 10-325 mg) 1 Tab Tab, 1 TAB PO BID for 30 Days, #60 10/17/23 Acetaminophen (Acetaminophen Extra Stren) 500 Mg Tab, 1 TAB PO TID for 30 Days, #90 10/17/23 Bisacodyl (Bisacodyl Ec) 5 Mg Tab, 1 TAB PO DAILY for 30 Days, #30 10/17/23 Hydroxyzine Hcl (Hydroxyzine Hcl) 25 Mg Tab, 1 TAB PO QID for 30 Days, #120 10/17/23 Ferrous Sulfate (Iron) 325 Mg Tab, 325 MG PO DAILY, TAB 10/16/23 Risperidone (Risperidone) 1 Mg Tab, 1 TAB PO DAILY for 30 Days, #30 10/16/23 Mirtazapine (Mirtazapine Oral Disintegrating Tablet) 7.5 Mg Tab, 1 TAB PO DAILY for 30 Days, #30 10/16/23 Metoprolol Succinate (Metoprolol Succinate Er) 25 Mg Tab, 1 TAB PO DAILY 10/16/23 Aspirin (Aspirin Low Dose) 81 Mg Tab, 1 TAB PO DAILY 10/16/23 Docusate Sodium (Docusate Sodium) 100 Mg Cap, 1 CAP PO BID 10/16/23 Cholecalciferol (Vitamin D-3 Super Strengt) 2,000 Unit Tab, 1 TAB PO DAILY 10/16/23 Duloxetine HCl (Duloxetine HCl) 20 Mg Cap, 1 CAP PO BID 10/16/23 Metformin Hydrochloride (Metformin Hcl) 500 Mg Tab, 1 TAB PO BID 10/16/23 Atorvastatin Calcium (ATORVASTATIN CALCIUM) 80 Mg Tab, 1 TAB PO DAILY 10/16/23 Amlodipine Besylate (Amlodipine Besylate) 10 Mg Tab, 1 TAB PO DAILY 10/16/23 Loratadine (CLARITIN TABLET) 10 Mg Tb, 1 TAB PO DAILY 10/16/23 Losartan Potassium (Losartan Potassium) 100 Mg Tab, 1 TAB PO DAILY 10/16/23 Gabapentin (Gabapentin) 300 Mg Cap, 1 CAP PO TID 10/16/23 Review of systems Review of Systems: HEENT:Normal, CVS:Abnormal (Hypertension), RESPIRATORY:Normal, GI:Normal, :Normal, MSK:Abnormal, NEURO:Abnormal (Patient has a right upper extremity contracture a weak right leg residual from a stroke she had many years ago.) Examination Vital signs Imaging Imaging studies from outside source were reviewed by Dr. Tristian Fierro Imaging Vital Signs Date Time Temp Pulse Resp B/P (MAP) Pulse Ox O2 Delivery O2 Flow Rate FiO2 05/02/24 16:00 65 16 130/75 (93) 95 05/02/24 14:00 Room Air* 0 21 05/02/24 13:37 97.8 97.8 Medications Current Medications Medications (Trade) Dose Ordered Sig/Kelechi Route PRN Reason Start Time Stop Time Status Last Admin Acetaminophen/ Hydrocodone Bitart ([place] 5/325MG Tab) 1 tab Q4HP PRN PO MODERATE PAIN (4-6 PAIN SCALE) 05/02/24 14:15 Ondansetron HCl (Zofran) 4 mg Q4HP PRN IV NAUSEA / VOMITING 05/02/24 14:15 Enoxaparin Sodium (Lovenox) 40 mg DAILY SC 05/03/24 10:00 Acetaminophen (Tylenol Tablet) 650 mg Q6HP PRN PO PAIN SCALE 1-3 OR TEMP>100.4 05/02/24 14:15 Ceftriaxone Sodium 50 ml @ 100 mls/hr DAILY@09 IV 05/03/24 09:00 Diagnostic Test (Pha) (Accu-Chek Comfort Curve T) 1 strip ACHS 05/02/24 17:00 05/02/24 17:26 Insulin Human Regular (InsuLIN R) ACHS SC 05/02/24 17:00 05/02/24 17:25 Dextrose 50 ml UD PRN IV Blood Sugar LESS THAN 60 05/02/24 14:45 Acetaminophen (Tylenol Tablet Or Capsule) 500 mg TID PO 05/02/24 22:00 Aspirin (Ecotrin Enteric Coated Tablet) 81 mg DAILY PO 05/03/24 10:00 Docusate Sodium (Colace Capsule) 100 mg BID PO 05/02/24 22:00 Gabapentin (Neurontin Capsule) 300 mg TID PO 05/02/24 22:00 Acetaminophen/ Hydrocodone Bitart ([place] 10/325MG Tab) 1 tab BID PO 05/02/24 22:00 Loratadine (Claritin Tablet) 10 mg DAILY PO 05/03/24 10:00 Risperidone (RisperDAL TABLET) 1 mg DAILY PO 05/03/24 10:00 Amlodipine Besylate (Norvasc Tablet) 10 mg DAILY PO 05/03/24 10:00 Atorvastatin Calcium (Lipitor) 80 mg HS PO 05/02/24 22:00 Cholecalciferol (Vitamin D3 Tablet) 2,000 unit DAILY PO 05/03/24 10:00 Patient Own Medication 1 cap BID PO 05/02/24 22:00 Ferrous Sulfate 325 mg DAILY PO 05/03/24 10:00 Hydroxyzine Pamoate (Vistaril Oral) 25 mg QID PO 05/02/24 18:00 Losartan Potassium (Cozaar Tablet) 100 mg DAILY PO 05/03/24 10:00 Metoprolol Succinate (Toprol Xl) 25 mg DAILY PO 05/03/24 10:00 Patient Own Medication 1 tab DAILY PO 05/03/24 10:00 Patient Own Medication 1 tab DAILY PO 05/03/24 10:00 Laboratory Labs Test 05/02/24 17:19 05/02/24 15:20 05/02/24 13:54 05/02/24 12:07 Range/Units POC Glucose 143 H 70-106 mg/dl Erythrocyte Sedimentation Rate 10 0-20 mm/hr Lactic Acid Level 2.0 0.4-2.0 mmol/L Troponin I High Sensitivity 3 L </=34 ng/L C-Reactive Protein High Sensitivity 0.38 <1.0 mg/dL White Blood Count 5.6 4.4-10.8 10^3/uL Red Blood Count 4.86 4.0-5.20 10^6/uL Hemoglobin 13.5 12.2-16.2 g/dL Hematocrit 40.4 36.0-46.0 % Mean Corpuscular Volume 83.2 80.0-100.0 fL Mean Corpuscular Hemoglobin 27.9 L 28.0-32.0 pg Mean Corpuscular Hemoglobin Concent 33.5 32.0-36.0 g/dL Red Cell Distribution Width 16.5 H 11.8-14.3 % Platelet Count 378 140-450 10^3/uL Mean Platelet Volume 7.1 6.9-10.8 fL Neutrophils (%) (Auto) 53.4 37.0-80.0 % Lymphocytes (%) (Auto) 38.7 10.0-50.0 % Monocytes (%) (Auto) 2.5 0.0-12.0 % Eosinophils (%) (Auto) 3.1 0.0-7.0 % Basophils (%) (Auto) 2.3 H 0.0-2.0 % Neutrophils # (Auto) 3.0 1.6-8.6 10 ^3/uL Lymphocytes # (Auto) 2.2 0.4-5.4 10 ^3/uL Monocytes # (Auto) 0.1 0-1.3 10 ^3/uL Eosinophils # (Auto) 0.2 0-0.8 10 ^3/uL Basophils # (Auto) 0.1 0-0.2 10 ^3/uL Nucleated Red Blood Cells 0.2 % Sodium Level 140 136-145 mmol/L Potassium Level 3.7 3.5-5.1 mmol/L Chloride Level 105 98-107 mmol/L Carbon Dioxide Level 28 20-31 mmol/L Anion Gap 7 5-15 Blood Urea Nitrogen 12 9-23 mg/dL Creatinine 0.90 0.550-1.02 mg/dL Glomerular Filtration Rate Calc 71 >90 mL/min BUN/Creatinine Ratio 13.3 10.0-20.0 Serum Glucose 96 74-106 mg/dL Hemoglobin A1c 6.0 H <5.7 % A1C Calcium Level 10.2 8.7-10.4 mg/dL B-Type Natriuretic Peptide 117.04 0-100 pg/mL Test 05/02/24 11:21 Range/Units Urine Color Yellow Yellow Urine Clarity Cloudy H Clear Urine pH 6.0 5.0-9.0 Urine Specific [place] 1.018 1.001-1.035 Urine Protein 1+ H Negative Urine Ketones Negative Negative Urine Blood 2+ H Negative /uL Urine Nitrite 2+ H Negative Urine Bilirubin Negative Negative Urine Urobilinogen Normal Negative mg/dL Urine Leukocyte Esterase 3+ Negative /uL Urine RBC 30 0 - 4 /hpf Urine WBC Clumps Present None Seen /hpf Urine Microscopic WBC 1515 H 0-5 /HPF Urine Squamous Epithelial Cells Few <5 /hpf Urine Bacteria Few H None Seen /hpf Urine Glucose Normal Normal mg/dL Examination: GENERAL:Abnormal (Patient is showing residual signs of a prior CVA with right-sided contracture of upper extremity and weakness to right lower extremity patient able to move left side), HEENT:Normal, NECK:Abnormal (Patient complains of neck pain), LUNGS:Normal, CVS:Normal, ABDOMEN:Normal, MSK:Abnormal (See general assessment), SKIN:Normal, NEURO:Abnormal (See general assessment) Problem List/Assessment/Plan Problems: (1) Cervical stenosis of spinal canal Assessment and Plan This patient is a candidate for a cervical 3-4 anterior cervical diskectomy and fusion Patient is agreeable to the procedure however there are some bouts of confusion so consent was obtained with patient's next of kin Mr. Viet Hartley who is her brother this was verified on a phone call on 05/02/2024 at 1647 and witnessed by ER nurse ANTHONY ralph RN, as presented by the junior underwriter of this note. Patient also agreed that her brother is the one she picks to make the decisions for her regarding the surgery. Risks and benefits were explained and both parties agreed to progress with procedure We will need cardiac clearance and medical clearance Scheduling of procedure will be dependent on OR availability in time Further care and management per admitting team's discretion Recommend muscle relaxers Call with questions Keke Torres [facility] Orthopaedic Spine Surgery nurse practitioner For Dr Bucky Fierro Patient was examined, chart reviewed, labs evaluated, and diagnostic studies and findings analyzed. Case was discussed with Dr. Tristian Fierro who formulated the plan of care. This medical document was created using an electronic medical record system with [employer] dictation system. Although this document has been carefully reviewed, there might still be some phonetic and typographical errors. These areas are purely typographical due to imperfections of the software programs, and do not reflect any compromise in the patient's medical care. Plan discussed with Plan discussed with: Patient, Other (Anthony Ralph RN) ANA LILIA TORRES NP May 02, 2024 17:55
[2024-05-02] MEDS: hydrOXYzine 25 MG TAB or CAP PO SCH (18:16)
[2024-05-02 19:30] VITALS: PULSE 70; RESP 19; O2SAT 95
[2024-05-02] MEDS: DOCUSATE SOD 100 MG CAP PO SCH (22:48)
[2024-05-02] MEDS: GABAPENTIN 300 MG CAP PO SCH (22:49)
[2024-05-02] MEDS: HYDROcodone-ACET 10/325MG TAB PO SCH (22:50)
[2024-05-02] MEDS: ACETAMINOPHEN 500 MG TAB or CAP PO SCH (22:54)
[2024-05-02] MEDS: ATORVASTATIN 20 MG TAB PO SCH (23:01)
[2024-05-02 23:08] VITALS: BP 100/65; PULSE 73; PULSE 83; RESP 18; TEMP 98; O2SAT 95; O2SAT 98
[2024-05-03] VITALS (7 sets, daily range): BP systolic 92–121; BP diastolic 52–70; PULSE 65–80; RESP 17–19; TEMP 97.4–98.2; O2SAT 92–99
[2024-05-03 06:58] LABS: Basophils # (auto) 0.1 10 ^3/uL (0-0.2); Basophils % (auto) 1.1 % (0.0-2.0); Eosinophils # (auto) 0 10 ^3/uL (0-0.8); Hematocrit 34.7 % (36.0-46.0); Hemoglobin 11.7 g/dL (12.2-16.2); Lymphocytes # (auto) 0.9 10 ^3/uL (0.4-5.4); Lymphocytes % (auto) 11.3 % (10.0-50.0); Mean Corpuscular Hemoglobin 27.8 pg (28.0-32.0); Mean Corpuscular Hgb Conc. 33.8 g/dL (32.0-36.0); Mean Corpuscular Volume 82.3 fL (80.0-100.0); Monocytes # (auto) 0.3 10 ^3/uL (0-1.3); Monocytes % (auto) 3.6 % (0.0-12.0); Neutrophils # (auto) 6.5 10 ^3/uL (1.6-8.6); Platelet Count (auto) 366 10^3/uL (140-450); Red Blood Cells 4.21 10^6/uL (4.0-5.20); Red Cell Distribution Width 16.3 % (11.8-14.3); White Blood Cell 7.7 10^3/uL (4.4-10.8)
[2024-05-03 07:20] LABS: Alanine Aminotransferase 16 U/L (7-40); Albumin 4.5 g/dL (3.2-4.8); Alkaline Phosphatase 68 U/L (46-116); Anion Gap 8 (5-15); Aspartate Aminotransferase 21 U/L (13-40); BUN/Creatinine Ratio 17.9 (10.0-20.0); Calcium 9.3 mg/dL (8.7-10.4); Carbon Dioxide 27 mmol/L (20-31); Chloride 104 mmol/L (98-107); Potassium 3.8 mmol/L (3.5-5.1); Sodium 139 mmol/L (136-145); Total Protein 7.1 g/dL (5.7-8.2)
[2024-05-03 07:30] LABS: Bilirubin, Total 0.2 mg/dL (0.2-1.0); Blood Urea Nitrogen 25 mg/dL (9-23); Glucose 122 mg/dL (74-106)
[2024-05-03] MEDS: cefTRIAXone 1GM/50ML D5W 50 ML IV SCH (09:59)
[2024-05-03] MEDS: LORATADINE 10 MG TAB PO SCH (10:00)
[2024-05-03] MEDS: ASPirin-EC 81 mg tab PO SCH (10:00)
[2024-05-03] MEDS: LOSARTAN POTASSIUM 50 MG TAB PO SCH (10:01)
[2024-05-03] MEDS: amLODIPine BESYLATE 5 MG TAB PO SCH (10:01)
[2024-05-03] MEDS: risperiDONE 1 MG TAB PO SCH (10:02)
[2024-05-03] MEDS: ENOXAPARIN SOD 40 MG/0.4 ML SYRINGE SC SCH (10:02)
[2024-05-03] MEDS: CHOLECALCIFEROL (VITD3) 1,000UNIT=25mCg TAB PO SCH (10:03)
[2024-05-03] MEDS: METOPROLOL SUCCINATE XL 50 MG TAB PO SCH (10:03)
[2024-05-03] MEDS: FERROUS SULFATE 325mg EC TAB PO SCH (10:03)
--- NOTE | 2024-05-03 13:06 | DVHPN2 ---
Subjective The patient is seen and examined at bedside. No complaint today. Reviewed: Care Plan, H&P, Labs, Medications, Previous Orders, Radiology Changes from previous H/P or p: No Changes Gastrointestinal: Nausea, Vomiting Genitourinary: Other (Malodorous urine) Musculoskeletal: neck pain, back pain Objective Vitals Vital Signs Date Time Temp Pulse Resp B/P (MAP) Pulse Ox O2 Delivery O2 Flow Rate FiO2 05/03/24 10:03 72 126/82 05/03/24 05:00 98.2 17 95 98.2 05/02/24 23:08 Room Air* 0 21 Intake/Output Intake and Output 05/03/24 07:00 Intake Total 350 ml Output Total 150 ml Balance 200 ml Intake Oral 300 ml IV Total 50 ml Output Urine Total 150 ml General Appearance: Alert, Cooperative, No acute distress HEENT: Atraumatic, PERRLA, EOMI, Mucous membr. moist/pink Neck: Supple Lungs: Clear to auscultation, Normal air movement Cardiovascular: Regular rate, Normal S1, Normal S2, No murmurs, Gallops, Rubs Abdomen: Normal bowel sounds, Soft, No tenderness Neuro: Cranial nerves 3-12 NL Psych/Mental Status: Mental status NL Medications Current Medications Medications Dose Ordered Sig/Kelechi Route Start Time Stop Time Status Last Admin Dose Admin Acetaminophen/ Hydrocodone Bitart 1 tab Q4HP PRN PO 05/02/24 14:15 Ondansetron HCl 4 mg Q4HP PRN IV 05/02/24 14:15 Enoxaparin Sodium 40 mg DAILY SC 05/03/24 10:00 05/03/24 10:02 40 MG Acetaminophen 650 mg Q6HP PRN PO 05/02/24 14:15 Ceftriaxone Sodium 50 ml @ 100 mls/hr DAILY@09 IV 05/03/24 09:00 05/03/24 09:59 100 MLS/HR Diagnostic Test (Pha) 1 strip ACHS 05/02/24 17:00 05/03/24 11:16 1 STRIP Insulin Human Regular ACHS SC 05/02/24 17:00 05/03/24 11:42 3 UNITS Dextrose 50 ml UD PRN IV 05/02/24 14:45 Acetaminophen 500 mg TID PO 05/02/24 22:00 05/03/24 06:16 500 MG Aspirin 81 mg DAILY PO 05/03/24 10:00 05/03/24 10:00 81 MG Docusate Sodium 100 mg BID PO 05/02/24 22:00 05/02/24 22:48 100 MG Gabapentin 300 mg TID PO 05/02/24 22:00 05/03/24 06:16 300 MG Acetaminophen/ Hydrocodone Bitart 1 tab BID PO 05/02/24 22:00 05/03/24 10:02 1 TAB Loratadine 10 mg DAILY PO 05/03/24 10:00 05/03/24 10:00 10 MG Risperidone 1 mg DAILY PO 05/03/24 10:00 05/03/24 10:02 1 MG Amlodipine Besylate 10 mg DAILY PO 05/03/24 10:00 05/03/24 10:01 10 MG Atorvastatin Calcium 80 mg HS PO 05/02/24 22:00 05/02/24 23:01 80 MG Cholecalciferol 2,000 unit DAILY PO 05/03/24 10:00 05/03/24 10:03 2,000 UNIT Patient Own Medication 1 cap BID PO 05/02/24 22:00 Ferrous Sulfate 325 mg DAILY PO 05/03/24 10:00 05/03/24 10:03 325 MG Hydroxyzine Pamoate 25 mg QID PO 05/02/24 18:00 05/03/24 06:16 25 MG Losartan Potassium 100 mg DAILY PO 05/03/24 10:00 05/03/24 10:01 100 MG Metoprolol Succinate 25 mg DAILY PO 05/03/24 10:00 05/03/24 10:03 25 MG Patient Own Medication 1 tab DAILY PO 05/03/24 10:00 Patient Own Medication 1 tab DAILY PO 05/03/24 10:00 Laboratory Results Laboratory Tests 05/03/24 06:36 Chemistry Test 05/03/24 06:36 Albumin 4.5 g/dL (3.2-4.8) Calcium Level 9.3 mg/dL (8.7-10.4) Total Protein 7.1 g/dL (5.7-8.2) LFT Test 05/03/24 06:36 Alanine Aminotransferase (ALT) 16 U/L (7-40) Alkaline Phosphatase 68 U/L (46-116) Aspartate Amino Transferase (AST) 21 U/L (13-40) Total Bilirubin 0.2 mg/dL (0.2-1.0) Urinalysis Test 05/02/24 11:21 Urine Color Yellow (Yellow) Urine Clarity Cloudy (Clear) H Urine pH 6.0 (5.0-9.0) Urine Specific [place] 1.018 (1.001-1.035) Urine Protein 1+ (Negative) H Urine Ketones Negative (Negative) Urine Blood 2+ /uL (Negative) H Urine Nitrite 2+ (Negative) H Urine Bilirubin Negative (Negative) Urine Urobilinogen Normal mg/dL (Negative) Urine Leukocyte Esterase 3+ /uL (Negative) Urine RBC 30 /hpf (0 - 4) Urine WBC Clumps Present /hpf (None Seen) Urine Microscopic WBC 1515 /HPF (0-5) H Urine Squamous Epithelial Cells Few /hpf (<5) Urine Bacteria Few /hpf (None Seen) H Urine Glucose Normal mg/dL (Normal) Microbiology Microbiology Date/Time Source Procedure Growth Status 05/02/24 12:07 Blood Blood Culture - Preliminary NO GROWTH AFTER 24 HOURS OF INCUBATION. Resulted 05/02/24 11:21 Urine - [place] Urine Culture - Preliminary Resulted Labs and/or images reviewed: Labs reviewed by me Assessment/Plan Assessment/Plan Intractable neck and back pain Intractable nausea and vomiting with weight loss C3-4 central canal stenosis and cord compression on outside MRI imaging Lactic acidosis likely due to UTI Hypertension Diabetes type 2 History of CVA with right-sided hemiplegia Continuing current management. The patient is still have intractable nausea or vomiting. The patient unable to keep food down. I am going to consult GI specialist. Continuing with IV antibiotic. Continuing with sliding scale insulin. Continuing with pain medications Continuing with hypertensive medication Continuing with Zofran p.r.n. for nausea or vomiting Discussed with daughter and patient at bedside. This medical document was created using an electronic medical record system with [employer] direct computerized dictation system. Although this document has been carefully reviewed, there may still be some phonetic and typographical errors. These areas are purely typographical due to imperfections of the software programs, and do not reflect any compromise in the patient's medical care. Plan discussed with: Patient, Daughter Date of Service: May 03, 2024 Billing Provider: GLADIS DURAN MD Common Visit Codes: [id number] INP/OBS CARE(HIGH) GLADIS DURAN MD May 03, 2024 13:06
[2024-05-04] VITALS (8 sets, daily range): BP systolic 101–133; BP diastolic 33–81; PULSE 54–79; RESP 16–20; TEMP 97.3–98.5; O2SAT 80–100
--- NOTE | 2024-05-04 12:41 | DVHPN2 ---
Subjective The patient is seen and examined at bedside. Still nausea and vomiting Reviewed: Care Plan, H&P, Labs, Medications, Previous Orders Changes from previous H/P or p: No Changes Gastrointestinal: Nausea, Vomiting Genitourinary: Other (Malodorous urine) Musculoskeletal: neck pain, back pain Objective Vitals Vital Signs Date Time Temp Pulse Resp B/P (MAP) Pulse Ox O2 Delivery O2 Flow Rate FiO2 05/04/24 09:44 65 178/64 05/04/24 09:00 98.3 18 100 98.3 05/04/24 08:00 Room Air* 0 21 Intake/Output Intake and Output 05/04/24 07:00 Intake Total 720 ml Output Total 1000 ml Balance -280 ml Intake Oral 720 ml Output Urine Total 1000 ml General Appearance: Alert, Oriented X3, Cooperative, No acute distress HEENT: Atraumatic, PERRLA, EOMI, Mucous membr. moist/pink Neck: Supple Lungs: Clear to auscultation, Normal air movement Cardiovascular: Regular rate, Normal S1, Normal S2, No murmurs, Gallops, Rubs Abdomen: Normal bowel sounds, Soft, No tenderness Psych/Mental Status: Mental status NL Medications Current Medications Medications Dose Ordered Sig/Kelechi Route Start Time Stop Time Status Last Admin Dose Admin Acetaminophen/ Hydrocodone Bitart 1 tab Q4HP PRN PO 05/02/24 14:15 Ondansetron HCl 4 mg Q4HP PRN IV 05/02/24 14:15 Enoxaparin Sodium 40 mg DAILY SC 05/03/24 10:00 05/04/24 09:45 40 MG Acetaminophen 650 mg Q6HP PRN PO 05/02/24 14:15 Ceftriaxone Sodium 50 ml @ 100 mls/hr DAILY@09 IV 05/03/24 09:00 05/04/24 09:44 100 MLS/HR Diagnostic Test (Pha) 1 strip ACHS 05/02/24 17:00 05/04/24 12:05 1 STRIP Insulin Human Regular ACHS SC 05/02/24 17:00 05/03/24 16:52 4 UNITS Dextrose 50 ml UD PRN IV 05/02/24 14:45 Acetaminophen 500 mg TID PO 05/02/24 22:00 05/04/24 06:18 500 MG Aspirin 81 mg DAILY PO 05/03/24 10:00 05/04/24 09:42 81 MG Docusate Sodium 100 mg BID PO 05/02/24 22:00 05/04/24 09:44 100 MG Gabapentin 300 mg TID PO 05/02/24 22:00 05/04/24 06:19 300 MG Acetaminophen/ Hydrocodone Bitart 1 tab BID PO 05/02/24 22:00 05/04/24 09:43 1 TAB Loratadine 10 mg DAILY PO 05/03/24 10:00 05/04/24 09:44 10 MG Risperidone 1 mg DAILY PO 05/03/24 10:00 05/04/24 09:43 1 MG Amlodipine Besylate 10 mg DAILY PO 05/03/24 10:00 05/04/24 09:42 10 MG Atorvastatin Calcium 80 mg HS PO 05/02/24 22:00 05/03/24 22:04 80 MG Cholecalciferol 2,000 unit DAILY PO 05/03/24 10:00 05/04/24 09:41 2,000 UNIT Patient Own Medication 1 cap BID PO 05/02/24 22:00 Ferrous Sulfate 325 mg DAILY PO 05/03/24 10:00 05/04/24 09:44 325 MG Hydroxyzine Pamoate 25 mg QID PO 05/02/24 18:00 05/04/24 06:19 25 MG Losartan Potassium 100 mg DAILY PO 05/03/24 10:00 05/04/24 09:43 100 MG Metoprolol Succinate 25 mg DAILY PO 05/03/24 10:00 05/04/24 09:44 25 MG Patient Own Medication 1 tab DAILY PO 05/03/24 10:00 Patient Own Medication 1 tab DAILY PO 05/03/24 10:00 Laboratory Results Laboratory Tests 05/03/24 06:36 Urinalysis Test 05/02/24 11:21 Urine Color Yellow (Yellow) Urine Clarity Cloudy (Clear) H Urine pH 6.0 (5.0-9.0) Urine Specific [place] 1.018 (1.001-1.035) Urine Protein 1+ (Negative) H Urine Ketones Negative (Negative) Urine Blood 2+ /uL (Negative) H Urine Nitrite 2+ (Negative) H Urine Bilirubin Negative (Negative) Urine Urobilinogen Normal mg/dL (Negative) Urine Leukocyte Esterase 3+ /uL (Negative) Urine RBC 30 /hpf (0 - 4) Urine WBC Clumps Present /hpf (None Seen) Urine Microscopic WBC 1515 /HPF (0-5) H Urine Squamous Epithelial Cells Few /hpf (<5) Urine Bacteria Few /hpf (None Seen) H Urine Glucose Normal mg/dL (Normal) Microbiology Microbiology Date/Time Source Procedure Growth Status 05/02/24 12:07 Blood Blood Culture - Preliminary NO GROWTH AFTER 48 HOURS OF INCUBATION. Resulted 05/02/24 11:21 Urine - [place] Urine Culture - Final Escherichia coli - ESBL Complete Labs and/or images reviewed: Labs reviewed by me Assessment/Plan Assessment/Plan Intractable neck and back pain Intractable nausea and vomiting with weight loss C3-4 central canal stenosis and cord compression on outside MRI imaging Lactic acidosis likely due to UTI Hypertension Diabetes type 2 History of CVA with right-sided hemiplegia Continuing current management. The patient is still have intractable nausea or vomiting. The patient unable to keep food down. Waiting for GI specialist to see the patient. Continuing with IV antibiotic. Continuing with sliding scale insulin. Continuing with pain medications Continuing with hypertensive medication Continuing with Zofran p.r.n. for nausea or vomiting Appreciate spine surgeon service input Discussed with daughter and patient at bedside. This medical document was created using an electronic medical record system with [employer] direct computerized dictation system. Although this document has been carefully reviewed, there may still be some phonetic and typographical errors. These areas are purely typographical due to imperfections of the software programs, and do not reflect any compromise in the patient's medical care. Plan discussed with: Patient, Daughter Date of Service: May 04, 2024 Billing Provider: GLADIS DURAN MD Common Visit Codes: [id number] INP/OBS CARE(HIGH) GLADIS DURAN MD May 04, 2024 12:41
--- NOTE | 2024-05-04 17:34 | MEDREC ---
[facility] Intervention Section I [facility] Intervention: Review courses of therapy (PLEASE CONSIDER REVIEWING COURSE OF THERAPY ACCORDING TO CULTURE RESULTS ) KELI SUMNER PHARMACIST May 04, 2024 17:34
[2024-05-05] VITALS (8 sets, daily range): BP systolic 97–138; BP diastolic 56–73; PULSE 53–74; RESP 14–18; TEMP 97.3–97.8; O2SAT 92–98
--- NOTE | 2024-05-05 12:40 | DVHPN2 ---
Subjective Patient denies any symptoms. Reviewed: Care Plan, H&P, Labs, Medications, Previous Orders Changes from previous H/P or p: No Changes General: Per HPI Gastrointestinal: Nausea, Vomiting Genitourinary: Other (Malodorous urine) Musculoskeletal: neck pain, back pain Objective Vitals Vital Signs Date Time Temp Pulse Resp B/P (MAP) Pulse Ox O2 Delivery O2 Flow Rate FiO2 05/05/24 12:36 97.7 61 16 117/73 (88) 96 97.7 05/05/24 07:31 Room Air* 0 21 Intake/Output Intake and Output 05/05/24 07:00 Intake Total 550 ml Output Total 575 ml Balance -25 ml Intake Oral 500 ml IV Total 50 ml Output Urine Total 575 ml General Appearance: Alert, Oriented X3, Cooperative, No acute distress HEENT: Atraumatic, PERRLA, EOMI, Mucous membr. moist/pink Neck: Supple Lungs: Clear to auscultation, Normal air movement Cardiovascular: Regular rate, Normal S1, Normal S2, No murmurs, Gallops, Rubs Abdomen: Normal bowel sounds, Soft, No tenderness Neuro: Cranial nerves 3-12 NL Skin: Dry, Intact Psych/Mental Status: Mental status NL Medications Current Medications Medications Dose Ordered Sig/Kelechi Route Start Time Stop Time Status Last Admin Dose Admin Acetaminophen/ Hydrocodone Bitart 1 tab Q4HP PRN PO 05/02/24 14:15 Ondansetron HCl 4 mg Q4HP PRN IV 05/02/24 14:15 Enoxaparin Sodium 40 mg DAILY SC 05/03/24 10:00 05/05/24 10:04 40 MG Acetaminophen 650 mg Q6HP PRN PO 05/02/24 14:15 Diagnostic Test (Pha) 1 strip ACHS 05/02/24 17:00 05/05/24 11:51 1 STRIP Insulin Human Regular ACHS SC 05/02/24 17:00 05/05/24 11:55 2 UNITS Dextrose 50 ml UD PRN IV 05/02/24 14:45 Acetaminophen 500 mg TID PO 05/02/24 22:00 05/04/24 22:16 500 MG Docusate Sodium 100 mg BID PO 05/02/24 22:00 05/04/24 09:44 100 MG Gabapentin 300 mg TID PO 05/02/24 22:00 05/04/24 22:16 300 MG Acetaminophen/ Hydrocodone Bitart 1 tab BID PO 05/02/24 22:00 05/05/24 10:02 1 TAB Loratadine 10 mg DAILY PO 05/03/24 10:00 05/05/24 10:01 10 MG Risperidone 1 mg DAILY PO 05/03/24 10:00 05/05/24 10:01 1 MG Amlodipine Besylate 10 mg DAILY PO 05/03/24 10:00 05/05/24 10:03 10 MG Atorvastatin Calcium 80 mg HS PO 05/02/24 22:00 05/04/24 22:15 80 MG Cholecalciferol 2,000 unit DAILY PO 05/03/24 10:00 05/05/24 10:02 2,000 UNIT Patient Own Medication 1 cap BID PO 05/02/24 22:00 Ferrous Sulfate 325 mg DAILY PO 05/03/24 10:00 05/05/24 10:02 325 MG Hydroxyzine Pamoate 25 mg QID PO 05/02/24 18:00 05/05/24 11:51 25 MG Losartan Potassium 100 mg DAILY PO 05/03/24 10:00 05/05/24 10:02 100 MG Metoprolol Succinate 25 mg DAILY PO 05/03/24 10:00 05/05/24 10:01 25 MG Patient Own Medication 1 tab DAILY PO 05/03/24 10:00 Patient Own Medication 1 tab DAILY PO 05/03/24 10:00 Ertapenem 1 gm/ Sodium Chloride 50 ml @ 100 mls/hr DAILY IV 05/05/24 11:45 Laboratory Results Laboratory Tests 05/03/24 06:36 Urinalysis Test 05/02/24 11:21 Urine Color Yellow (Yellow) Urine Clarity Cloudy (Clear) H Urine pH 6.0 (5.0-9.0) Urine Specific [place] 1.018 (1.001-1.035) Urine Protein 1+ (Negative) H Urine Ketones Negative (Negative) Urine Blood 2+ /uL (Negative) H Urine Nitrite 2+ (Negative) H Urine Bilirubin Negative (Negative) Urine Urobilinogen Normal mg/dL (Negative) Urine Leukocyte Esterase 3+ /uL (Negative) Urine RBC 30 /hpf (0 - 4) Urine WBC Clumps Present /hpf (None Seen) Urine Microscopic WBC 1515 /HPF (0-5) H Urine Squamous Epithelial Cells Few /hpf (<5) Urine Bacteria Few /hpf (None Seen) H Urine Glucose Normal mg/dL (Normal) Microbiology Microbiology Date/Time Source Procedure Growth Status 05/02/24 12:07 Blood Blood Culture - Preliminary NO GROWTH AFTER 72 HOURS OF INCUBATION. Resulted 05/02/24 11:21 Urine - [place] Urine Culture - Final Escherichia coli - ESBL Complete Labs and/or images reviewed: Labs reviewed by me, Image(s) reviewed by me Assessment/Plan Assessment/Plan Impression: -cervical stenosis -complicated cystitis -history of CVA with right-sided weakness -primary hypertension -diabetes mellitus Plan: -spinal surgery consultation -change antibiotic therapy to Invanz 1 g daily -hold aspirin -regular insulin sliding scale -antihypertensives -PUD, DVT prophylaxis -reassess chest x-ray for persistent CHF Total time spent with patient discussing and formulating plan of care: 35 minutes. This medical document was created using an electronic medical record system with [employer] dictation system. Although this document has been carefully reviewed, there may still be some phonetic and typographical errors. These areas are purely typographical due to imperfections of the software programs, and do not reflect any compromise in the patient's medical care. Plan discussed with: Patient, Other (RN) My Orders Orders - HUMBERTO JARQUIN NP Procedure Category Date Status Time Ertapenem Sod Inj PHA 05/05/24 In Process (Invanz) 11:45 Chest Portable XY 05/05/24 Taken 11:45 PTPTT LAB 05/05/24 Logged 11:45 Complete Blood Count LAB 05/05/24 Logged 11:45 Comprehensive LAB 05/05/24 Logged Metabolic Panel 11:45 Date of Service: May 05, 2024 Billing Provider: HUMBERTO JARQUIN NP Common Visit Codes: [id number] INP/OBS CARE(HIGH) HUMBERTO JARQUIN NP May 05, 2024 12:40
--- NOTE | 2024-05-05 12:56 | DVHINCON2 ---
GI Consult Consult Note GI consult note Date of Consultation: 05/05/2024 Chief Complaint: Intractable nausea and vomiting Referring Physician: Dr. Up H&P: 63-year-old female with past medical history of hypertension, diabetes, CVA with right-sided weakness, abnormal cervical and lumbar spine findings on MRI, presented to ER with worsening neck pain for two weeks, and complains of hematuria and mild odorous urine Patient denies abdominal pain Patient did have nausea and vomiting mostly throwing up of food. No hematemesis. Last episode of emesis yesterday. None today No melena or red blood in stool No EGD or colonoscopy in past Patient is on Lovenox Patient is tentatively scheduled for cervical 3-4 anterior cervical diskectomy and fusion Past Medical History: CVA (right sided defecits), Depression, DM, HTN Bipolar Past Surgical History: Denies Social History: NO smoking, drinking ETOH and use of illegal drugs. Family History: Noncontributory Review of Systems: Constitutional: no fever, chill, weight loss Heart: no chest pain, no chest pressure Lung: no cough, no dyspnea with exertion Abdomen: see HPI Physical exam: General: NAD, AAOX3 Chest: lung barber clear to auscultation Heart: RRR, no murmur Abdomen: non-distended, no tenderness to palpation, +BS Labs: Labs Test 05/05/24 10:54 05/03/24 06:36 05/02/24 15:20 05/02/24 13:54 Range/Units POC Glucose 139 H 70-106 mg/dl White Blood Count 7.7 # 4.4-10.8 10^3/uL Red Blood Count 4.21 4.0-5.20 10^6/uL Hemoglobin 11.7 L 12.2-16.2 g/dL Hematocrit 34.7 #L 36.0-46.0 % Mean Corpuscular Volume 82.3 80.0-100.0 fL Mean Corpuscular Hemoglobin 27.8 L 28.0-32.0 pg Mean Corpuscular Hemoglobin Concent 33.8 32.0-36.0 g/dL Red Cell Distribution Width 16.3 H 11.8-14.3 % Platelet Count 366 140-450 10^3/uL Mean Platelet Volume 7.3 6.9-10.8 fL Neutrophils (%) (Auto) 84.0 H 37.0-80.0 % Lymphocytes (%) (Auto) 11.3 10.0-50.0 % Monocytes (%) (Auto) 3.6 0.0-12.0 % Eosinophils (%) (Auto) 0.0 0.0-7.0 % Basophils (%) (Auto) 1.1 0.0-2.0 % Neutrophils # (Auto) 6.5 1.6-8.6 10 ^3/uL Lymphocytes # (Auto) 0.9 0.4-5.4 10 ^3/uL Monocytes # (Auto) 0.3 0-1.3 10 ^3/uL Eosinophils # (Auto) 0 0-0.8 10 ^3/uL Basophils # (Auto) 0.1 0-0.2 10 ^3/uL Nucleated Red Blood Cells 0.0 % Sodium Level 139 136-145 mmol/L Potassium Level 3.8 3.5-5.1 mmol/L Chloride Level 104 98-107 mmol/L Carbon Dioxide Level 27 20-31 mmol/L Anion Gap 8 5-15 Blood Urea Nitrogen 25 #H 9-23 mg/dL Creatinine 1.40 #H 0.550-1.02 mg/dL Glomerular Filtration Rate Calc 42 >90 mL/min BUN/Creatinine Ratio 17.9 10.0-20.0 Serum Glucose 122 H 74-106 mg/dL Calcium Level 9.3 8.7-10.4 mg/dL Total Bilirubin 0.2 0.2-1.0 mg/dL Aspartate Amino Transferase (AST) 21 13-40 U/L Alanine Aminotransferase (ALT) 16 7-40 U/L Alkaline Phosphatase 68 46-116 U/L Total Protein 7.1 5.7-8.2 g/dL Albumin 4.5 3.2-4.8 g/dL Erythrocyte Sedimentation Rate 10 0-20 mm/hr Lactic Acid Level 2.0 0.4-2.0 mmol/L Troponin I High Sensitivity 3 L </=34 ng/L C-Reactive Protein High Sensitivity 0.38 <1.0 mg/dL Test 05/02/24 12:07 05/02/24 11:21 Range/Units Hemoglobin A1c 6.0 H <5.7 % A1C B-Type Natriuretic Peptide 117.04 0-100 pg/mL Urine Color Yellow Yellow Urine Clarity Cloudy H Clear Urine pH 6.0 5.0-9.0 Urine Specific [place] 1.018 1.001-1.035 Urine Protein 1+ H Negative Urine Ketones Negative Negative Urine Blood 2+ H Negative /uL Urine Nitrite 2+ H Negative Urine Bilirubin Negative Negative Urine Urobilinogen Normal Negative mg/dL Urine Leukocyte Esterase 3+ Negative /uL Urine RBC 30 0 - 4 /hpf Urine WBC Clumps Present None Seen /hpf Urine Microscopic WBC 1515 H 0-5 /HPF Urine Squamous Epithelial Cells Few <5 /hpf Urine Bacteria Few H None Seen /hpf Urine Glucose Normal Normal mg/dL Microbiology Date/Time Source Procedure Growth Status 05/02/24 12:07 Blood Blood Culture - Preliminary NO GROWTH AFTER 72 HOURS OF INCUBATION. Resulted 05/02/24 11:21 Urine - [place] Urine Culture - Final Escherichia coli - ESBL Complete Imaging: Assessment: Intractable nausea and vomiting, improving now Intractable neck and back pain UTI History of CVA with right-sided hemiplegia Plan: Discussed with Dr. Quan Bentley and Protonix Monitor lab Advance diet as tolerated Conservative treatment recommended at this time, we will continue to monitor the patient Discussed plan with patient and RN Thank you for this consult Date of Service: May 05, 2024 Billing Provider: JOSE RAFAEL COSTELLO Common Visit Codes: CONSULT ONLY Consultation Codes: [id number] CONSULT <60MIN JOSE RAFAEL COSTELLO May 05, 2024 12:56
[2024-05-05 13:31] LABS: Basophils # (auto) 0 10 ^3/uL (0-0.2); Basophils % (auto) 0.5 % (0.0-2.0); Eosinophils # (auto) 0.2 10 ^3/uL (0-0.8); Hematocrit 36.6 % (36.0-46.0); Hemoglobin 12.1 g/dL (12.2-16.2); Lymphocytes # (auto) 2.4 10 ^3/uL (0.4-5.4); Lymphocytes % (auto) 39.3 % (10.0-50.0); Mean Corpuscular Hemoglobin 27.5 pg (28.0-32.0); Mean Corpuscular Hgb Conc. 33.1 g/dL (32.0-36.0); Mean Corpuscular Volume 83.2 fL (80.0-100.0); Monocytes # (auto) 0.3 10 ^3/uL (0-1.3); Monocytes % (auto) 4.5 % (0.0-12.0); Neutrophils # (auto) 3.3 10 ^3/uL (1.6-8.6); Neutrophils % (auto) 52.7 % (37.0-80.0); Nucleated Red Blood Cells % 0.1 %; Platelet Count (auto) 332 10^3/uL (140-450); Red Cell Distribution Width 16.4 % (11.8-14.3); White Blood Cell 6.2 10^3/uL (4.4-10.8)
[2024-05-05] MEDS: ERTAPENEM SOD INJ 1 GM in SODIUM CHL 0.9% 50 ML IV SCH (13:45)
[2024-05-05 13:50] LABS: INR 1.01 (0.9-1.15); Partial Thromboplastin Time 28.2 SEC (24.5-34.5); Prothrombin Time 10.7 sec (9.3-11.8)
[2024-05-05 13:54] LABS: Alanine Aminotransferase 13 U/L (7-40); Albumin 4.1 g/dL (3.2-4.8); Alkaline Phosphatase 56 U/L (46-116); Anion Gap 7 (5-15); Aspartate Aminotransferase 18 U/L (13-40); BUN/Creatinine Ratio 15.6 (10.0-20.0); Blood Urea Nitrogen 14 mg/dL (9-23); Calcium 9.4 mg/dL (8.7-10.4); Carbon Dioxide 28 mmol/L (20-31); Chloride 102 mmol/L (98-107); Sodium 137 mmol/L (136-145); Total Protein 6.7 g/dL (5.7-8.2)
[2024-05-05 13:55] LABS: Bilirubin, Total 0.2 mg/dL (0.2-1.0); Glucose 150 mg/dL (74-106); Potassium 3.2 mmol/L (3.5-5.1)
--- NOTE | 2024-05-05 14:12 | DVH ---
INDICATION: chf TECHNIQUE: Frontal view of the chest. COMPARISON: XY CHEST XRAY 1 VIEW on DOS: 05/02/24, XY CHEST XRAY 1 VIEW on DOS: 10/15/23 FINDINGS: The heart and mediastinal contours are grossly unremarkable. There is no evidence of pleural disease . The lungs are clear. The bony structures of the chest are intact without fracture. IMPRESSION: 1. No evidence of acute disease.
[2024-05-06] VITALS (7 sets, daily range): BP systolic 88–120; BP diastolic 44–72; PULSE 65–81; RESP 16–18; TEMP 97.8–98.4; O2SAT 94–98
--- NOTE | 2024-05-06 10:51 | DVHPN2 ---
Progress Note Date Seen: May 06, 2024 Resident Creating Document: JANINE MCKENNA RESIDENT Medical Necessity Reason Pt with a Central, PICC or Fol: No Subjective Review of Systems patient examined at bedside reports 1 episode of vomiting in the AM improved since arriving to the hospital Objective vital signs Vital Sign Date Time Temp Pulse Resp B/P (MAP) Pulse Ox O2 Delivery O2 Flow Rate FiO2 05/06/24 10:00 66 96/68 05/06/24 09:00 98.3 18 94 98.3 05/05/24 20:00 Room Air* 0 21 Total Intake and Output 05/05/24 05/05/24 05/06/24 15:00 23:00 07:00 Intake Total 100 ml 300 ml Output Total 875 ml 0 ml Balance 100 ml -875 ml 300 ml medications Current Medications Medications Dose Ordered Sig/Kelechi Route Start Time Stop Time Status Last Admin Dose Admin Acetaminophen/ Hydrocodone Bitart 1 tab Q4HP PRN PO 05/02/24 14:15 Ondansetron HCl 4 mg Q4HP PRN IV 05/02/24 14:15 Enoxaparin Sodium 40 mg DAILY SC 05/03/24 10:00 05/05/24 10:04 40 MG Acetaminophen 650 mg Q6HP PRN PO 05/02/24 14:15 Diagnostic Test (Pha) 1 strip ACHS 05/02/24 17:00 05/06/24 06:40 1 STRIP Insulin Human Regular ACHS SC 05/02/24 17:00 05/05/24 22:33 3 UNITS Dextrose 50 ml UD PRN IV 05/02/24 14:45 Acetaminophen 500 mg TID PO 05/02/24 22:00 05/06/24 06:03 500 MG Docusate Sodium 100 mg BID PO 05/02/24 22:00 05/06/24 10:22 100 MG Gabapentin 300 mg TID PO 05/02/24 22:00 05/06/24 06:03 300 MG Acetaminophen/ Hydrocodone Bitart 1 tab BID PO 05/02/24 22:00 05/06/24 10:22 1 TAB Loratadine 10 mg DAILY PO 05/03/24 10:00 05/06/24 10:22 10 MG Risperidone 1 mg DAILY PO 05/03/24 10:00 05/06/24 10:22 1 MG Amlodipine Besylate 10 mg DAILY PO 05/03/24 10:00 05/05/24 10:03 10 MG Atorvastatin Calcium 80 mg HS PO 05/02/24 22:00 05/05/24 22:41 80 MG Cholecalciferol 2,000 unit DAILY PO 05/03/24 10:00 05/06/24 10:21 2,000 UNIT Patient Own Medication 1 cap BID PO 05/02/24 22:00 Ferrous Sulfate 325 mg DAILY PO 05/03/24 10:00 05/06/24 10:22 325 MG Hydroxyzine Pamoate 25 mg QID PO 05/02/24 18:00 05/06/24 06:03 25 MG Metoprolol Succinate 25 mg DAILY PO 05/03/24 10:00 05/05/24 10:01 25 MG Patient Own Medication 1 tab DAILY PO 05/03/24 10:00 Patient Own Medication 1 tab DAILY PO 05/03/24 10:00 Ertapenem 1 gm/ Sodium Chloride 50 ml @ 100 mls/hr DAILY IV 05/05/24 11:45 05/06/24 10:29 100 MLS/HR Examination General Appearance: Cooperative. Well developed. Well nourished. NAD Head Exam: Normal inspection Neck Exam: Normal inspection. Non-tender. Normal alignment Pulmonary/Respiratory: Chest non-tender. Clear bilateral breath sounds, no crackles, no wheezing. Cardiovascular/Chest: Regular rate and rhythm. No murmurs. No JVD. Abdominal Exam: Normal bowel sounds. Soft. normal abdomen, no visible veins, Nontender. No hepatospenomegaly. No masses Ankle Exam: Negative ankle edema Skin Exam: Normal inspection. Normal color. Warm. Dry laboratory and microbiology Laboratory Tests 05/05/24 13:20 Test 05/05/24 13:20 Range/Units Serum Glucose 150 H 74-106 mg/dL Microbiology Date/Time Source Procedure Growth Status 05/02/24 12:07 Blood Blood Culture - Preliminary NO GROWTH AFTER 72 HOURS OF INCUBATION. Resulted 05/02/24 11:21 Urine - [place] Urine Culture - Final Escherichia coli - ESBL Complete Labs and/or images reviewed: Labs reviewed by me, Image(s) reviewed by me Problem List/Assessment/Plan Problem List/Assessment/Plan Acute intractable nausea and vomiting ESBL positive acute complicated UTI History of CVA with right-sided residual weakness Intractable neck and back pain due to cervical stenosis Plan: Zofran and Protonix [place] Ordered complete abdominal ultrasound Monitor labs Advance diet as tolerated Conservative treatment recommended at this time, we will continue to monitor the patient Plan discussed with Dr. Glass Plan discussed with: Patient, Other (RN) JANINE MCKENNA RESIDENT May 06, 2024 10:51
--- NOTE | 2024-05-06 11:40 | DVHPN2 ---
Subjective Patient denies any symptoms. Reviewed: Care Plan, H&P, Labs, Medications, Previous Orders Changes from previous H/P or p: No Changes General: Per HPI Gastrointestinal: Nausea, Vomiting Genitourinary: Other (Malodorous urine) Musculoskeletal: neck pain, back pain Objective Vitals Vital Signs Date Time Temp Pulse Resp B/P (MAP) Pulse Ox O2 Delivery O2 Flow Rate FiO2 05/06/24 10:00 66 96/68 05/06/24 09:00 98.3 18 94 98.3 05/05/24 20:00 Room Air* 0 21 Intake/Output Intake and Output 05/06/24 07:00 Intake Total 400 ml Output Total 875 ml Balance -475 ml Intake Oral 300 ml IV Total 100 ml Output Urine Total 875 ml # Bowel Movements 1 General Appearance: Alert, Oriented X3, Cooperative, No acute distress HEENT: Atraumatic, PERRLA, EOMI, Mucous membr. moist/pink Neck: Supple Lungs: Clear to auscultation, Normal air movement Cardiovascular: Regular rate, Normal S1, Normal S2, No murmurs, Gallops, Rubs Abdomen: Normal bowel sounds, Soft, No tenderness Extremities: Other (Right upper extremity contraction) Neuro: Cranial nerves 3-12 NL Skin: Dry, Intact Psych/Mental Status: Mental status NL Medications Current Medications Medications Dose Ordered Sig/Kelechi Route Start Time Stop Time Status Last Admin Dose Admin Acetaminophen/ Hydrocodone Bitart 1 tab Q4HP PRN PO 05/02/24 14:15 Ondansetron HCl 4 mg Q4HP PRN IV 05/02/24 14:15 Enoxaparin Sodium 40 mg DAILY SC 05/03/24 10:00 05/05/24 10:04 40 MG Acetaminophen 650 mg Q6HP PRN PO 05/02/24 14:15 Diagnostic Test (Pha) 1 strip ACHS 05/02/24 17:00 05/06/24 06:40 1 STRIP Insulin Human Regular ACHS SC 05/02/24 17:00 05/05/24 22:33 3 UNITS Dextrose 50 ml UD PRN IV 05/02/24 14:45 Acetaminophen 500 mg TID PO 05/02/24 22:00 05/06/24 06:03 500 MG Docusate Sodium 100 mg BID PO 05/02/24 22:00 05/06/24 10:22 100 MG Gabapentin 300 mg TID PO 05/02/24 22:00 05/06/24 06:03 300 MG Acetaminophen/ Hydrocodone Bitart 1 tab BID PO 05/02/24 22:00 05/06/24 10:22 1 TAB Loratadine 10 mg DAILY PO 05/03/24 10:00 05/06/24 10:22 10 MG Risperidone 1 mg DAILY PO 05/03/24 10:00 05/06/24 10:22 1 MG Amlodipine Besylate 10 mg DAILY PO 05/03/24 10:00 05/05/24 10:03 10 MG Atorvastatin Calcium 80 mg HS PO 05/02/24 22:00 05/05/24 22:41 80 MG Cholecalciferol 2,000 unit DAILY PO 05/03/24 10:00 05/06/24 10:21 2,000 UNIT Patient Own Medication 1 cap BID PO 05/02/24 22:00 Ferrous Sulfate 325 mg DAILY PO 05/03/24 10:00 05/06/24 10:22 325 MG Hydroxyzine Pamoate 25 mg QID PO 05/02/24 18:00 05/06/24 06:03 25 MG Metoprolol Succinate 25 mg DAILY PO 05/03/24 10:00 05/05/24 10:01 25 MG Patient Own Medication 1 tab DAILY PO 05/03/24 10:00 Patient Own Medication 1 tab DAILY PO 05/03/24 10:00 Ertapenem 1 gm/ Sodium Chloride 50 ml @ 100 mls/hr DAILY IV 05/05/24 11:45 05/06/24 10:29 100 MLS/HR Laboratory Results Laboratory Tests 05/05/24 13:20 Chemistry Test 05/05/24 13:20 Albumin 4.1 g/dL (3.2-4.8) Calcium Level 9.4 mg/dL (8.7-10.4) Total Protein 6.7 g/dL (5.7-8.2) Coagulation Test 05/05/24 13:20 Prothrombin Time 10.7 sec (9.3-11.8) Prothrombin Time INR 1.01 (0.9-1.15) Activated Partial Thromboplast Time 28.2 SEC (24.5-34.5) LFT Test 05/05/24 13:20 Alanine Aminotransferase (ALT) 13 U/L (7-40) Alkaline Phosphatase 56 U/L (46-116) Aspartate Amino Transferase (AST) 18 U/L (13-40) Total Bilirubin 0.2 mg/dL (0.2-1.0) Urinalysis Test 05/02/24 11:21 Urine Color Yellow (Yellow) Urine Clarity Cloudy (Clear) H Urine pH 6.0 (5.0-9.0) Urine Specific [place] 1.018 (1.001-1.035) Urine Protein 1+ (Negative) H Urine Ketones Negative (Negative) Urine Blood 2+ /uL (Negative) H Urine Nitrite 2+ (Negative) H Urine Bilirubin Negative (Negative) Urine Urobilinogen Normal mg/dL (Negative) Urine Leukocyte Esterase 3+ /uL (Negative) Urine RBC 30 /hpf (0 - 4) Urine WBC Clumps Present /hpf (None Seen) Urine Microscopic WBC 1515 /HPF (0-5) H Urine Squamous Epithelial Cells Few /hpf (<5) Urine Bacteria Few /hpf (None Seen) H Urine Glucose Normal mg/dL (Normal) Microbiology Microbiology Date/Time Source Procedure Growth Status 05/02/24 12:07 Blood Blood Culture - Preliminary NO GROWTH AFTER 72 HOURS OF INCUBATION. Resulted 05/02/24 11:21 Urine - [place] Urine Culture - Final Escherichia coli - ESBL Complete Labs and/or images reviewed: Labs reviewed by me, Image(s) reviewed by me Assessment/Plan Assessment/Plan Impression: -cervical stenosis -complicated cystitis -history of CVA with right-sided weakness -primary hypertension -diabetes mellitus Plan: Events: Surgery held today given patient was provided breakfast as well as pending cardiology clearance. -spinal surgery consultation : Discussed case with Xiao Freitas NP yesterday as well as Dr. Fierro today. They are aware of patient having ESBL. Recommending cardiology consultation with possible surgery in two days. -continue IV Invanz -hold aspirin -regular insulin sliding scale -antihypertensives -PUD, DVT prophylaxis -echocardiogram Total time spent with patient discussing and formulating plan of care: 35 minutes. This medical document was created using an electronic medical record system with [employer] system. Although this document has been carefully reviewed, there may still be some phonetic and typographical errors. These areas are purely typographical due to imperfections of the software programs, and do not reflect any compromise in the patient's medical care. Plan discussed with: Patient, Other (RN) My Orders Orders - HUMBERTO JARQUIN NP Procedure Category Date Status Time Ertapenem Sod Inj PHA 05/05/24 In Process (Invanz) 11:45 Chest Portable XY 05/05/24 Resulted 11:45 * Cardiology Consult CONS 05/06/24 Verified 11:34 Npo After Midnight ORDERS 05/08/24 Verified Date of Service: May 06, 2024 Billing Provider: HUMBERTO JARQUIN NP Common Visit Codes: [id number] INP/OBS CARE(HIGH) HUMBERTO JARQUIN NP May 06, 2024 11:40
--- NOTE | 2024-05-06 14:41 | DVHSR ---
APPROVED REPORT EXAM: Two-dimensional and M-mode echocardiogram with Doppler and color Doppler. Blood Pressure: 117/73 mmHg INDICATION Pre-Op RISK FACTORS Height: 5'3", Weight: 140 DIMENSIONS LVDd4.3 (3.8-5.7cm)LA (2D)2.8 (1.9-4.0cm)Aortic Root2.8 (2.0-3.7cm) LVDs2.8 (2.5-4.0cm)LA (MM) (1.9-4.0cm)Aortic Cusp Exc1.8 (1.5-2.0cm) EF (%) 60.0 (55-70%)Rt. Atrium2.9 (1.9-4.0cm)Asc. Aorta cm IVSd0.9 (0.7-1.1cm)RV (D) (1.8-2.4cm) PWd0.9 (0.7-1.1cm) Mitral Valve MitralMitral Stenosis E wave0.72m/sMV Mean GR.mmHg A wave0.76m/sMV Peak GR.mmHg E/A ratio0.92D MVAcm2 DECEL [id number] 1/2 [place] Aortic Valve Aortic ValveAortic Stenosis V10.84m/Jolly Mean GR.2mmHg V20.96m/Jolly Peak GR.4mmHg LVOT Diameter1.7 (1.8-2.4cm)Doppler AVA1.99cm2 Pulmonic Valve V20.79m/s Tricuspid Valve TR Velocity3.11m/s [id number] Conclusion lvef 60% by visual estimate normal rv function left atrium enlarged no severe valve abnormalities noted
[2024-05-06 15:58] LABS: Sodium 144 mmol/L (136-145)
[2024-05-06 15:59] LABS: Anion Gap 7 (5-15); Carbon Dioxide 25 mmol/L (20-31)
[2024-05-06 16:02] LABS: Calcium 6.7 mg/dL (8.7-10.4); Chloride 112 mmol/L (98-107); Potassium 2.7 mmol/L (3.5-5.1)
[2024-05-06 16:04] LABS: BUN/Creatinine Ratio 21.5 (10.0-20.0); Blood Urea Nitrogen 14 mg/dL (9-23)
[2024-05-06] MEDS: POTASSIUM EFFERVESENT TAB 25 MEQ PO ONE (16:05)
[2024-05-06 16:14] LABS: Glucose 115 mg/dL (74-106)
--- NOTE | 2024-05-06 16:42 | DVHINCON2 ---
[place] YIN [facility] 05/06/24 1642: Date Seen: May 06, 2024 Referring Physician YEIMY Rosado Reason for Consultation Cardiac risk stratification History of Present Illness This is a 63-year-old female who presented to the emergency room with a chief complaint of neck pain for two weeks. The patient is somewhat a poor historian. Per caregiver at bedside, the patient developed neck pain and back pain imped ing ambulation. She has been diagnosed with cervical stenosis for which the patient underwent a spinal surgery consultation. Cardiology consulted for cardiac risk stratification prior to intervention procedure. The patient and caregiver denies any complaints of chest pain, palpitations, diaphoresis, SOB, dizziness, or syncopal events. Functional capacity unable to be assessed given bed-bound status. She underwent a 12 lead electrocardiogram revealing a sinus rhythm with T-wave inversion to septal leads. Serial troponin levels are negative. Significant medical history includes hypertension, dyslipidemia, [id number] diabetes mellitus, history of CVA with right-sided hemiparesis, depression, bipolar disorder, and schizophrenia. Past Medical History Past medical history reviewed. No other significant than mentioned above. Past Surgical History Denies any past medical history. Family History: No Family History of: Diabetes during Family History Family history reviewed. Social History Denies the use of illicit drugs, alcohol, or tobacco use. Allergies: Coded Allergies: NO KNOWN ALLERGIES (Unverified , 10/15/23) Home Meds Active Scripts Amoxicillin & Pot Clavulanate (AUGMENTIN TABLET) 875 Mg Tb, 875 MG PO BID for 7 Days, #14 TAB Prov:ALLYSSA SANTOS RESIDENT 10/17/23 Reported Medications Solifenacin Succinate (Solifenacin Succinate) 10 Mg Tab, 1 TAB PO DAILY for 30 Days, #30 10/17/23 Hydrocodone-Acetaminophen (Hydrocodone Bitartrate/AC 10-325 mg) 1 Tab Tab, 1 TAB PO BID for 30 Days, #60 10/17/23 Acetaminophen (Acetaminophen Extra Stren) 500 Mg Tab, 1 TAB PO TID for 30 Days, #90 10/17/23 Bisacodyl (Bisacodyl Ec) 5 Mg Tab, 1 TAB PO DAILY for 30 Days, #30 10/17/23 Hydroxyzine Hcl (Hydroxyzine Hcl) 25 Mg Tab, 1 TAB PO QID for 30 Days, #120 10/17/23 Ferrous Sulfate (Iron) 325 Mg Tab, 325 MG PO DAILY, TAB 10/16/23 Risperidone (Risperidone) 1 Mg Tab, 1 TAB PO DAILY for 30 Days, #30 10/16/23 Mirtazapine (Mirtazapine Oral Disintegrating Tablet) 7.5 Mg Tab, 1 TAB PO DAILY for 30 Days, #30 10/16/23 Metoprolol Succinate (Metoprolol Succinate Er) 25 Mg Tab, 1 TAB PO DAILY 10/16/23 Aspirin (Aspirin Low Dose) 81 Mg Tab, 1 TAB PO DAILY 10/16/23 Docusate Sodium (Docusate Sodium) 100 Mg Cap, 1 CAP PO BID 10/16/23 Cholecalciferol (Vitamin D-3 Super Strengt) 2,000 Unit Tab, 1 TAB PO DAILY 10/16/23 Duloxetine HCl (Duloxetine HCl) 20 Mg Cap, 1 CAP PO BID 10/16/23 Metformin Hydrochloride (Metformin Hcl) 500 Mg Tab, 1 TAB PO BID 10/16/23 Atorvastatin Calcium (ATORVASTATIN CALCIUM) 80 Mg Tab, 1 TAB PO DAILY 10/16/23 Amlodipine Besylate (Amlodipine Besylate) 10 Mg Tab, 1 TAB PO DAILY 10/16/23 Loratadine (CLARITIN TABLET) 10 Mg Tb, 1 TAB PO DAILY 10/16/23 Losartan Potassium (Losartan Potassium) 100 Mg Tab, 1 TAB PO DAILY 10/16/23 Gabapentin (Gabapentin) 300 Mg Cap, 1 CAP PO TID 10/16/23 Home Meds Home medications reviewed. Current Medications Current Medications Medications (Trade) Dose Ordered Sig/Kelechi Route PRN Reason Start Time Stop Time Status Last Admin Sucralfate (Carafate Susp) 1 gm BID@0600,2200 GT 05/06/24 22:00 UNV Review of Systems Constitutional: No symptom reported Ears, Nose, & Throat: No symptom reported Eyes: No symptom reported Neurological: No symptoms reported Pulmonary/Respiratory: No symptom reported Cardiovascular: No symptom reported Gastrointestinal: No symptom reported Genitourinary: No symptom reported Musculoskeletal: Neck pain/back pain Skin: No symptom reported Psychiatric: No symptom reported Endocrine: No symptom reported Hemotologic/Lymphatic: No symptom reported Vital Signs Vital Signs Date Time Temp Pulse Resp B/P (MAP) Pulse Ox O2 Delivery O2 Flow Rate FiO2 05/06/24 13:13 97.8 72 18 120/72 (88) 95 97.8 05/06/24 08:00 Room Air* 0 21 Physical Exam General Appearance: Cooperative. Poor historian. Unilateral contraction, right-sided. In no acute distress Head Exam: Normal inspection Neck Exam: Normal inspection. Non-tender. Normal alignment Pulmonary/Respiratory: Chest non-tender. Clear bilateral breath sounds Cardiovascular/Chest: Regular rate and rhythm. S1, S2. Sinus rhythm with T- wave inversion to septal leads. No murmurs. No JVD. Peripheral Pulses: 2+ Radial (R). 2+ Radial (L). 2+ Pedal (R). 2+ Pedal (L) Abdominal Exam: Normal bowel sounds. Soft. Nontender. No hepatospenomegaly. No masses Ankle Exam: Negative ankle edema Lower extremities: Negative lower extremity edema Neuro/Mental Status: A&O x2/3. Coherent but poor historian Thoughts/Psych: Normal thought pattern. Appropriate mood and affect. Good judgement and insight Appearance: In no acute distress Skin Exam: Normal inspection. Normal color. Warm. Dry Labs/Diagnostic Data Labs Test 05/06/24 15:23 05/06/24 12:09 05/05/24 13:20 05/02/24 15:20 Range/Units Sodium Level 144 # 136-145 mmol/L Potassium Level 2.7 L 3.5-5.1 mmol/L Chloride Level 112 #H 98-107 mmol/L Carbon Dioxide Level 25 20-31 mmol/L Anion Gap 7 5-15 Blood Urea Nitrogen 14 9-23 mg/dL Creatinine 0.65 0.550-1.02 mg/dL Glomerular Filtration Rate Calc 98 >90 mL/min BUN/Creatinine Ratio 21.5 H 10.0-20.0 Serum Glucose 115 H 74-106 mg/dL Calcium Level 6.7 L 8.7-10.4 mg/dL POC Glucose 146 H 70-106 mg/dl White Blood Count 6.2 4.4-10.8 10^3/uL Red Blood Count 4.40 4.0-5.20 10^6/uL Hemoglobin 12.1 L 12.2-16.2 g/dL Hematocrit 36.6 36.0-46.0 % Mean Corpuscular Volume 83.2 80.0-100.0 fL Mean Corpuscular Hemoglobin 27.5 L 28.0-32.0 pg Mean Corpuscular Hemoglobin Concent 33.1 32.0-36.0 g/dL Red Cell Distribution Width 16.4 H 11.8-14.3 % Platelet Count 332 140-450 10^3/uL Mean Platelet Volume 6.8 L 6.9-10.8 fL Neutrophils (%) (Auto) 52.7 37.0-80.0 % Lymphocytes (%) (Auto) 39.3 10.0-50.0 % Monocytes (%) (Auto) 4.5 0.0-12.0 % Eosinophils (%) (Auto) 3.0 0.0-7.0 % Basophils (%) (Auto) 0.5 0.0-2.0 % Neutrophils # (Auto) 3.3 1.6-8.6 10 ^3/uL Lymphocytes # (Auto) 2.4 0.4-5.4 10 ^3/uL Monocytes # (Auto) 0.3 0-1.3 10 ^3/uL Eosinophils # (Auto) 0.2 0-0.8 10 ^3/uL Basophils # (Auto) 0 0-0.2 10 ^3/uL Nucleated Red Blood Cells 0.1 % Prothrombin Time 10.7 9.3-11.8 sec Prothrombin Time INR 1.01 0.9-1.15 Activated Partial Thromboplast Time 28.2 24.5-34.5 SEC Total Bilirubin 0.2 0.2-1.0 mg/dL Aspartate Amino Transferase (AST) 18 13-40 U/L Alanine Aminotransferase (ALT) 13 7-40 U/L Alkaline Phosphatase 56 46-116 U/L Total Protein 6.7 5.7-8.2 g/dL Albumin 4.1 3.2-4.8 g/dL Erythrocyte Sedimentation Rate 10 0-20 mm/hr Lactic Acid Level 2.0 0.4-2.0 mmol/L Troponin I High Sensitivity 3 L </=34 ng/L Test 05/02/24 13:54 05/02/24 12:07 05/02/24 11:21 Range/Units C-Reactive Protein High Sensitivity 0.38 <1.0 mg/dL Hemoglobin A1c 6.0 H <5.7 % A1C B-Type Natriuretic Peptide 117.04 0-100 pg/mL Urine Color Yellow Yellow Urine Clarity Cloudy H Clear Urine pH 6.0 5.0-9.0 Urine Specific [place] 1.018 1.001-1.035 Urine Protein 1+ H Negative Urine Ketones Negative Negative Urine Blood 2+ H Negative /uL Urine Nitrite 2+ H Negative Urine Bilirubin Negative Negative Urine Urobilinogen Normal Negative mg/dL Urine Leukocyte Esterase 3+ Negative /uL Urine RBC 30 0 - 4 /hpf Urine WBC Clumps Present None Seen /hpf Urine Microscopic WBC 1515 H 0-5 /HPF Urine Squamous Epithelial Cells Few <5 /hpf Urine Bacteria Few H None Seen /hpf Urine Glucose Normal Normal mg/dL Microbiology Date/Time Source Procedure Growth Status 05/02/24 12:07 Blood Blood Culture - Preliminary NO GROWTH AFTER 72 HOURS OF INCUBATION. Resulted 05/02/24 11:21 Urine - [place] Urine Culture - Final Escherichia coli - ESBL Complete Assessment Preprocedural cardiovascular examination Cervical stenosis History of CVA with right-sided hemiparesis Hypertension Dyslipidemia Ate-bmqkicf-kzluefypi diabetes mellitus Plan/Recommendation (Dr. Gibson) Case discussed in full detail and patient assessed by Dr. Gibson. Echocardiogram reveals EF 60% with normal RV function. Twelve lead electrocardiogram revealed a sinus rhythm with T-wave inversion to septal leads and no evidence of acute ischemia. Serial troponin levels are negative. Revised cardiac risk index (Gabriel criteria): 15% risk of , [place] or cardiac arrest. Patient has no underlying history of congestive heart failure, or coronary artery disease. Functional capacity not assessed given bedbound status. Per Cardiology standpoint, the patient is at a moderate-high risk for moderate-high risk surgery. There is no additional cardiac workup indicated prior to surgery. Kindly call if in need to re-consult. Thank you for allowing us to care for this patient. This medical document was created using an electronic medical record system with voice recognition software and computerized dictation system. Although this document has been carefully reviewed, there might still be some phonetic and typographical errors. Occasional wrong-word or ``sound-alike substitutions may have occurred due to the inherent limitations of voice recognition software. These areas are purely typographical due to imperfections of the software programs and do not reflect any compromise in the patient's medical care. Please read the chart carefully and recognize, using context, where these substitutions have occurred. Plan discussed with: Patient, Other NYHA Physical activity limitations: NA Date of Service: May 06, 2024 Billing Provider: YIN,CHINA RN [facility] Cardiology Common Codes: [id number] INP/OBS CARE (High) ZEN GIBSON MD 05/08/24 1653: Date Seen: May 06, 2024 Family History: No Family History of: Diabetes during Allergies: Coded Allergies: NO KNOWN ALLERGIES (Unverified , 10/15/23) Home Meds Active Scripts Amoxicillin & Pot Clavulanate (AUGMENTIN TABLET) 875 Mg Tb, 875 MG PO BID for 7 Days, #14 TAB Prov:ALLYSSA SANTOS RESIDENT 10/17/23 Reported Medications Solifenacin Succinate (Solifenacin Succinate) 10 Mg Tab, 1 TAB PO DAILY for 30 Days, #30 10/17/23 Hydrocodone-Acetaminophen (Hydrocodone Bitartrate/AC 10-325 mg) 1 Tab Tab, 1 TAB PO BID for 30 Days, #60 10/17/23 Acetaminophen (Acetaminophen Extra Stren) 500 Mg Tab, 1 TAB PO TID for 30 Days, #90 10/17/23 Bisacodyl (Bisacodyl Ec) 5 Mg Tab, 1 TAB PO DAILY for 30 Days, #30 10/17/23 Hydroxyzine Hcl (Hydroxyzine Hcl) 25 Mg Tab, 1 TAB PO QID for 30 Days, #120 10/17/23 Ferrous Sulfate (Iron) 325 Mg Tab, 325 MG PO DAILY, TAB 10/16/23 Risperidone (Risperidone) 1 Mg Tab, 1 TAB PO DAILY for 30 Days, #30 10/16/23 Mirtazapine (Mirtazapine Oral Disintegrating Tablet) 7.5 Mg Tab, 1 TAB PO DAILY for 30 Days, #30 10/16/23 Metoprolol Succinate (Metoprolol Succinate Er) 25 Mg Tab, 1 TAB PO DAILY 10/16/23 Aspirin (Aspirin Low Dose) 81 Mg Tab, 1 TAB PO DAILY 10/16/23 Docusate Sodium (Docusate Sodium) 100 Mg Cap, 1 CAP PO BID 10/16/23 Cholecalciferol (Vitamin D-3 Super Strengt) 2,000 Unit Tab, 1 TAB PO DAILY 10/16/23 Duloxetine HCl (Duloxetine HCl) 20 Mg Cap, 1 CAP PO BID 10/16/23 Metformin Hydrochloride (Metformin Hcl) 500 Mg Tab, 1 TAB PO BID 10/16/23 Atorvastatin Calcium (ATORVASTATIN CALCIUM) 80 Mg Tab, 1 TAB PO DAILY 10/16/23 Amlodipine Besylate (Amlodipine Besylate) 10 Mg Tab, 1 TAB PO DAILY 10/16/23 Loratadine (CLARITIN TABLET) 10 Mg Tb, 1 TAB PO DAILY 10/16/23 Losartan Potassium (Losartan Potassium) 100 Mg Tab, 1 TAB PO DAILY 10/16/23 Gabapentin (Gabapentin) 300 Mg Cap, 1 CAP PO TID 10/16/23 Plan/Recommendation Request for preoperative evaluation, spinal surgery. Patient with multiple comorbidities and poor functional status. Elevated risk for complications based on this functional status, however in the setting of no acute cardiac syndrome and no further optimization needs at this moment, she may proceed at the discretion of the surgeon.We will be available as needed. Cardiology Common Codes: [id number] INP/OBS CARE (Mod) CHINA YIN RN [facility] May 06, 2024 16:42 ZEN GIBSON MD May 08, 2024 16:53
--- NOTE | 2024-05-06 19:45 | DVH ---
EXAM: US ABDOMEN LIMITED CLINICAL HISTORY: intractable vomiting TECHNIQUE: Grayscale and limited color flow doppler ultrasound of the right upper quadrant is perfor med. COMPARISON: None Findings: Liver measures 14.1 cm in length with normal echotexture and contour. No evidence of focal hepatic l esions or intra- or extrahepatic ductal dilatation. Common bile duct not visualized. Normal hepatoped al flow noted within the portal vein. No perihepatic free fluid is noted. Gallbladder appears within normal limits with gallbladder wall thickness measuring 0.3 cm. There are shadowing calculi. No evidence of biliary sludge or pericholecystic fluid. Sonographic Canchola's sign not documented. Pancreas not well-visualized due to overlying bowel gas . Right kidney measures 8.6 cm with normal contours, echotexture and cortical thickness. No evidence of hydronephrosis, calculi, cystic or solid renal lesions. Partially visualized inferior vena cava unremarkable. Impression: 1. No evidence of acute right upper quadrant abnormalities. 2. Cholelithiasis without evidence of acute cholecystitis.
[2024-05-06] MEDS: SUCRALFATE 1 GM/10 ML ORAL SUSP GT SCH (22:35)
[2024-05-07] VITALS (8 sets, daily range): BP systolic 99–121; BP diastolic 52–76; PULSE 70–79; RESP 16–18; TEMP 97.8–98.3; O2SAT 91–98
[2024-05-07 11:21] LABS: Chloride 104 mmol/L (98-107); Potassium 4.1 mmol/L (3.5-5.1); Sodium 139 mmol/L (136-145)
[2024-05-07 11:22] LABS: Anion Gap 6 (5-15); Carbon Dioxide 29 mmol/L (20-31)
[2024-05-07 11:23] LABS: Calcium 9.1 mg/dL (8.7-10.4)
[2024-05-07 11:27] LABS: BUN/Creatinine Ratio 24.7 (10.0-20.0); Blood Urea Nitrogen 21 mg/dL (9-23)
[2024-05-07 11:33] LABS: Glucose 159 mg/dL (74-106); Magnesium 1.5 mg/dL (1.6-2.6)
--- NOTE | 2024-05-07 11:40 | DVHPN2 ---
Subjective Patient denies any symptoms. Reviewed: Care Plan, H&P, Labs, Medications, Previous Orders Changes from previous H/P or p: No Changes General: Per HPI Gastrointestinal: Nausea, Vomiting Genitourinary: Other (Malodorous urine) Musculoskeletal: neck pain, back pain Objective Vitals Vital Signs Date Time Temp Pulse Resp B/P (MAP) Pulse Ox O2 Delivery O2 Flow Rate FiO2 05/07/24 10:00 88 98/68 05/07/24 09:02 98.2 16 91 98.2 05/07/24 08:00 Room Air* 0 21 Intake/Output Intake and Output 05/07/24 07:00 Intake Total 1070 ml Output Total 450 ml Balance 620 ml Intake Oral 1070 ml Output Urine Total 450 ml General Appearance: Alert, Oriented X3, Cooperative, No acute distress HEENT: Atraumatic, PERRLA, EOMI, Mucous membr. moist/pink Neck: Supple Lungs: Clear to auscultation, Normal air movement Cardiovascular: Regular rate, Normal S1, Normal S2, No murmurs, Gallops, Rubs Abdomen: Normal bowel sounds, Soft, No tenderness Extremities: Other (Right upper extremity contraction) Neuro: Cranial nerves 3-12 NL Skin: Dry, Intact Psych/Mental Status: Mental status NL Medications Current Medications Medications Dose Ordered Sig/Kelechi Route Start Time Stop Time Status Last Admin Dose Admin Acetaminophen/ Hydrocodone Bitart 1 tab Q4HP PRN PO 05/02/24 14:15 Ondansetron HCl 4 mg Q4HP PRN IV 05/02/24 14:15 Enoxaparin Sodium 40 mg DAILY SC 05/03/24 10:00 05/05/24 10:04 40 MG Acetaminophen 650 mg Q6HP PRN PO 05/02/24 14:15 Diagnostic Test (Pha) 1 strip ACHS 05/02/24 17:00 05/07/24 06:32 1 STRIP Insulin Human Regular ACHS SC 05/02/24 17:00 05/06/24 22:25 4 UNITS Dextrose 50 ml UD PRN IV 05/02/24 14:45 Acetaminophen 500 mg TID PO 05/02/24 22:00 05/06/24 22:28 500 MG Docusate Sodium 100 mg BID PO 05/02/24 22:00 05/07/24 09:58 100 MG Gabapentin 300 mg TID PO 05/02/24 22:00 05/06/24 22:29 300 MG Acetaminophen/ Hydrocodone Bitart 1 tab BID PO 05/02/24 22:00 05/07/24 10:04 1 TAB Loratadine 10 mg DAILY PO 05/03/24 10:00 05/07/24 10:04 10 MG Risperidone 1 mg DAILY PO 05/03/24 10:00 05/07/24 10:05 1 MG Amlodipine Besylate 10 mg DAILY PO 05/03/24 10:00 05/07/24 09:57 10 MG Atorvastatin Calcium 80 mg HS PO 05/02/24 22:00 05/06/24 22:29 80 MG Cholecalciferol 2,000 unit DAILY PO 05/03/24 10:00 05/07/24 09:56 2,000 UNIT Patient Own Medication 1 cap BID PO 05/02/24 22:00 Ferrous Sulfate 325 mg DAILY PO 05/03/24 10:00 05/07/24 09:58 325 MG Hydroxyzine Pamoate 25 mg QID PO 05/02/24 18:00 05/06/24 22:34 25 MG Metoprolol Succinate 25 mg DAILY PO 05/03/24 10:00 05/05/24 10:01 25 MG Patient Own Medication 1 tab DAILY PO 05/03/24 10:00 Patient Own Medication 1 tab DAILY PO 05/03/24 10:00 Ertapenem 1 gm/ Sodium Chloride 50 ml @ 100 mls/hr DAILY IV 05/05/24 11:45 05/07/24 09:56 100 MLS/HR Sucralfate 1 gm BID@0600,2200 GT 05/06/24 22:00 05/07/24 06:00 1 GM Laboratory Results Laboratory Tests 05/05/24 13:20 05/07/24 11:00 Chemistry Test 05/06/24 15:23 05/07/24 11:00 Calcium Level 6.7 mg/dL (8.7-10.4) L 9.1 mg/dL (8.7-10.4) Magnesium Level 1.5 mg/dL (1.6-2.6) L Urinalysis Test 05/02/24 11:21 Urine Color Yellow (Yellow) Urine Clarity Cloudy (Clear) H Urine pH 6.0 (5.0-9.0) Urine Specific [place] 1.018 (1.001-1.035) Urine Protein 1+ (Negative) H Urine Ketones Negative (Negative) Urine Blood 2+ /uL (Negative) H Urine Nitrite 2+ (Negative) H Urine Bilirubin Negative (Negative) Urine Urobilinogen Normal mg/dL (Negative) Urine Leukocyte Esterase 3+ /uL (Negative) Urine RBC 30 /hpf (0 - 4) Urine WBC Clumps Present /hpf (None Seen) Urine Microscopic WBC 1515 /HPF (0-5) H Urine Squamous Epithelial Cells Few /hpf (<5) Urine Bacteria Few /hpf (None Seen) H Urine Glucose Normal mg/dL (Normal) Microbiology Microbiology Date/Time Source Procedure Growth Status 05/02/24 12:07 Blood Blood Culture - Preliminary NO GROWTH AFTER 72 HOURS OF INCUBATION. Resulted 05/02/24 11:21 Urine - [place] Urine Culture - Final Escherichia coli - ESBL Complete Labs and/or images reviewed: Labs reviewed by me, Image(s) reviewed by me Assessment/Plan Assessment/Plan Impression: -cervical stenosis -complicated cystitis -history of CVA with right-sided weakness -primary hypertension -diabetes mellitus -hypomagnesemia Plan: Events: Surgical clearance obtained. Plans for surgery tomorrow. PT evaluation pending. Repeat UA. Magnesium supplementation. -spinal surgery consultation : Surgery tomorrow -midline placement -continue IV Invanz -hold aspirin -regular insulin sliding scale -antihypertensives -PUD, DVT prophylaxis -echocardiogram Total time spent with patient discussing and formulating plan of care: 35 minutes. This medical document was created using an electronic medical record system with [employer] dictation system. Although this document has been carefully reviewed, there may still be some phonetic and typographical errors. These areas are purely typographical due to imperfections of the software programs, and do not reflect any compromise in the patient's medical care. Plan discussed with: Patient, Other (RN) My Orders Orders - HUMBERTO JARQUIN NP Procedure Category Date Status Time Hydroxyzine Oral PHA 05/07/24 Transmitted (Vistaril Oral) 14:00 Insert Midline ORDERS 05/07/24 Transmitted 11:36 Urinalysis LAB 05/07/24 Transmitted 11:36 Magnesium Jermain PHA 05/07/24 Transmitted 12:00 Date of Service: May 07, 2024 Billing Provider: HUMBERTO JARQUIN NP Common Visit Codes: [id number] INP/OBS CARE(HIGH) HUMBERTO JARQUIN NP May 07, 2024 11:40
[2024-05-07 12:08] LABS: Urine Bacteria None Seen /hpf (None Seen)
[2024-05-07 12:36] LABS: Urine Blood Negative /uL (Negative); Urine Clarity Clear (Clear); Urine Color Light-Yellow (Yellow); Urine Protein, UAD TRACE (Negative); Urine Specific Gravity 1.022 (1.001-1.035); Urine Squamous Epithelial Cell FEW /hpf (<5); Urine Urobilinogen 3 mg/dL (Negative); Urine WBC 24 /HPF (0-5)
--- NOTE | 2024-05-07 12:50 | DVHPN2 ---
Progress Note Date Seen: May 07, 2024 Resident Creating Document: JANINE MCKENNA RESIDENT Medical Necessity Reason Pt with a Central, PICC or Fol: No Subjective Review of Systems patient examined at bedside Denies any nausea or vomiting Is tolerating food improved since arriving to the hospital Objective vital signs Vital Sign Date Time Temp Pulse Resp B/P (MAP) Pulse Ox O2 Delivery O2 Flow Rate FiO2 05/07/24 10:00 88 98/68 05/07/24 09:02 98.2 16 91 98.2 05/07/24 08:00 Room Air* 0 21 Total Intake and Output 05/06/24 05/06/24 05/07/24 15:00 23:00 07:00 Intake Total 520 ml 550 ml Output Total 200 ml 250 ml Balance 320 ml 300 ml medications Current Medications Medications Dose Ordered Sig/Kelechi Route Start Time Stop Time Status Last Admin Dose Admin Acetaminophen/ Hydrocodone Bitart 1 tab Q4HP PRN PO 05/02/24 14:15 Ondansetron HCl 4 mg Q4HP PRN IV 05/02/24 14:15 Enoxaparin Sodium 40 mg DAILY SC 05/03/24 10:00 05/05/24 10:04 40 MG Acetaminophen 650 mg Q6HP PRN PO 05/02/24 14:15 Diagnostic Test (Pha) 1 strip ACHS 05/02/24 17:00 05/07/24 11:30 1 STRIP Insulin Human Regular ACHS SC 05/02/24 17:00 05/06/24 22:25 4 UNITS Dextrose 50 ml UD PRN IV 05/02/24 14:45 Acetaminophen 500 mg TID PO 05/02/24 22:00 05/06/24 22:28 500 MG Docusate Sodium 100 mg BID PO 05/02/24 22:00 05/07/24 09:58 100 MG Gabapentin 300 mg TID PO 05/02/24 22:00 05/06/24 22:29 300 MG Loratadine 10 mg DAILY PO 05/03/24 10:00 05/07/24 10:04 10 MG Risperidone 1 mg DAILY PO 05/03/24 10:00 05/07/24 10:05 1 MG Atorvastatin Calcium 80 mg HS PO 05/02/24 22:00 05/06/24 22:29 80 MG Cholecalciferol 2,000 unit DAILY PO 05/03/24 10:00 05/07/24 09:56 2,000 UNIT Patient Own Medication 1 cap BID PO 05/02/24 22:00 Ferrous Sulfate 325 mg DAILY PO 05/03/24 10:00 05/07/24 09:58 325 MG Metoprolol Succinate 25 mg DAILY PO 05/03/24 10:00 05/05/24 10:01 25 MG Patient Own Medication 1 tab DAILY PO 05/03/24 10:00 Patient Own Medication 1 tab DAILY PO 05/03/24 10:00 Ertapenem 1 gm/ Sodium Chloride 50 ml @ 100 mls/hr DAILY IV 05/05/24 11:45 05/07/24 09:56 100 MLS/HR Sucralfate 1 gm BID@0600,2200 GT 05/06/24 22:00 05/07/24 06:00 1 GM Hydroxyzine Pamoate 25 mg TID PO 05/07/24 14:00 Magnesium Sulfate/ Dextrose 100 ml @ 100 mls/hr Q1HR IV 05/07/24 12:00 05/07/24 13:59 Examination General Appearance: Cooperative. Well developed. Well nourished. NAD Head Exam: Normal inspection Neck Exam: Normal inspection. Non-tender. Normal alignment Pulmonary/Respiratory: Chest non-tender. Clear bilateral breath sounds, no crackles, no wheezing. Cardiovascular/Chest: Regular rate and rhythm. No murmurs. No JVD. Abdominal Exam: Normal bowel sounds. Soft. normal abdomen, no visible veins, Nontender. No hepatospenomegaly. No masses Ankle Exam: Negative ankle edema Skin Exam: Normal inspection. Normal color. Warm. Dry laboratory and microbiology Laboratory Tests 05/07/24 11:00 05/05/24 13:20 Test 05/07/24 11:00 Range/Units Serum Glucose 159 H 74-106 mg/dL Microbiology Date/Time Source Procedure Growth Status 05/02/24 12:07 Blood Blood Culture - Final NO GROWTH AFTER 5 DAYS OF INCUBATION. Complete 05/02/24 11:21 Urine - [place] Urine Culture - Final Escherichia coli - ESBL Complete Labs and/or images reviewed: Labs reviewed by me, Image(s) reviewed by me Problem List/Assessment/Plan Problem List/Assessment/Plan Acute intractable nausea and vomiting ESBL positive acute complicated UTI History of CVA with right-sided residual weakness Intractable neck and back pain due to cervical stenosis Plan: Zofran and Protonix Carafate Ordered complete abdominal ultrasound Monitor labs Advance diet as tolerated Conservative treatment recommended at this time, we will continue to monitor the patient Plan discussed with Dr. Glass Plan discussed with: Patient, Other (RN) My Orders My Orders Orders - JANINE MCKENNA Procedure Category Date Status Time Sucralfate Susp PHA 05/06/24 In Process (Carafate Susp) 22:00 Abdomen Limited US 05/06/24 Resulted 16:01 Dietary Evaluation Review Comments: follow up with pending Calcium and vit D levels. Expected Outcomes/Goals: meet her estimated needs at 75%, normal Labs JANINE MCKENNA RESIDENT May 07, 2024 12:49
[2024-05-07] MEDS: hydrOXYzine 25 MG TAB or CAP PO SCH (14:40)
[2024-05-07] MEDS: MAGNESIUM SULFATE 1GM/100ML 100 ML IV SCH (14:41)
--- NOTE | 2024-05-07 17:25 | ECG ---
[facility] Test Date: 2024-05-06 Test Time: 16:19:50 Pat Name: DARLINE GREENE Department: Room: 0207T Gender: F [employer]: rn : 1960 Requested By: CHINA YIN Order Number: [id number] Reading MD: David Frey Measurements Intervals [place] Rate: 71 P: 26 NM: 137 QRS: 13 QRSD: 100 T: 21 QT: 405 QTc: 441 Interpretive Statements Sinus rhythm Low voltage, precordial leads Borderline T abnormalities, anterior leads Electronically Signed On 05-10-2024 18:11:09 PDT by David Frey Please click the below link to view image of tracing.
[2024-05-08] VITALS (8 sets, daily range): BP systolic 117–164; BP diastolic 67–79; PULSE 70–100; RESP 12–20; TEMP 97.7–99.4; O2SAT 92–99
[2024-05-08] MEDS: SUCCINYLCHOLINE CHLORIDE 20 MG/ML 10ML VIAL IV ONE (05:44)
[2024-05-08] MEDS ORDERED: fentaNYL CITRATE 5 ML ONE (05:47)
[2024-05-08] MEDS ORDERED: fentaNYL CITRATE 100 MCG/2 ML VL ONE ×2 (05:47→07:40)
[2024-05-08] MEDS ORDERED: PROPOFOL 10 MG/ML 20 ML IV ONE (05:48)
[2024-05-08] MEDS ORDERED: PHENYLEPHRINE HCL 10 MG/ML VL ONE (05:57)
[2024-05-08] MEDS: TRANEXAMIC ACID 20 ML ONE (06:00)
[2024-05-08] MEDS: ceFAZolin 2 GM/D5W100ml 100 ML IV ONE (06:14)
[2024-05-08] MEDS ORDERED: ROCURONIUM 10MG/ML 10ML VIAL IV ONE (07:18)
[2024-05-08] MEDS ORDERED: DexAMETHasone SOD PHOS 10MG/1ML VIAL INJ ONE (07:35)
[2024-05-08] MEDS ORDERED: ONDANSETRON HCL 4 MG/2 ML VIAL ONE (07:35)
--- NOTE | 2024-05-08 07:42 | PRN ---
Misceleneous Note Note Note Surgical/procedural interval history and physical note Current H and P was reviewed. The patient was reexamined. Re-evaluation of the patient confirms the necessity for the scheduled procedure. No change has occurred in the patient's condition since the H and P/ spine consult was complete no less than 30 days ago. Physicians verification of informed consent The patient was counseled regarding the procedure, its indications, risks, potential complications, and alternatives. All questions were answered. Consent was obtained on 05/02/2024 by patient's next of kin Viet Hartley via telephone confirmed with TUNGSTEN TENDERRADHA solano. Physicians verification of informed consent for blood transfusion There is a reasonable possibility that blood transfusions will be necessary as a result of the patient's procedure. I have discussed the following with the patient/patient's legal franchise sales representative. An explanation of benefits and risks of the transfusion of blood or blood products and possible alternatives. All questions have been answered to the patient's or they are legal representatives satisfaction. Informed consent -The patient has been informed of: -The nature of the proposed care, treatment, services, medications, interventions or procedures. -Potential benefits, risks or side effects, including potential problems related to the procedure. -The likelihood of achieving care treatment and Service goals -Possible alternatives to the procedure/proposed care, treatment and service. -The relative risks, benefits and side effects related to alternatives, including possible results of not receiving care, treatment and services. -When indicated, any limitations on the confidentiality of the informed leaning from or about the patient. -if appropriate, the risks, benefits and alternatives of the drugs to be used for sedation/analgesia including moderate sedation. -if appropriate, patient has been provided information on the risks, benefits and alternatives to the transfusion of blood and/or blood products. -if appropriate, the patient has been provided information regarding the Gonzalo Divya blood act. Call with questions Keke Torres [facility] Orthopaedic Spine Surgery nurse practitioner For Dr Bcuky Fierro Patient was examined, chart reviewed, labs evaluated, and diagnostic studies and findings analyzed. Case was discussed with Dr. Tristian Fierro who formulated the plan of care. This medical document was created using an electronic medical record system with [employer] system. Although this document has been carefully reviewed, there might still be some phonetic and typographical errors. These areas are purely typographical due to imperfections of the software programs, and do not reflect any compromise in the patient's medical care. ANA LILIA TORRES NP May 08, 2024 07:42
--- NOTE | 2024-05-08 09:43 | DVHOP2 ---
Operative Report - 2 Report Details Date: 05/08/24 Preop Diagnosis: massive C3/4 herniated disc with near complete narrowing of central canal at this level causing myeloradiculopathy Postop Diagnosis: same as pre op Surgeon: Tristian Fierro MD Director Of Critical Care: Kiley Freitas NP Anesthesiologist: garrett Anesthesia: General Consent: The patient was informed of the risks and benefits of the procedure. These include but are not limited to complications of anesthesia, postoperative infection, incomplete relief of symptoms, recurrence of symptoms, damage to blo od vessels, nerves and tendons, deep venous thrombosis, pulmonary embolism and possible need for repeat surgery in the future. Name of Procedure Performed see detailed note Procedure Details Procedure Details: Pre Op Diagnosis: Cervical massive 3/4 herniated disc causing almost complete canal compromise resulting in myeloradiculopathy and progressive neurologic deficit Post Op Diagnosis: same as pre op Procedure: Cervical 3 to 4 anterior cervical discectomy with Cervical 3-4 foraminotomies and facetectomies to decompression the spinal canal and Cervical 4 nerve roots Cervical 3-4 anterior cervical Fusion Cervical 3-4 anterior cervical instrumentation with freestanding cages Cervical 3-4 placement of allograft prosthetic device Microscope for micro dissection Surgeon: Tristian Fierro MD Anesthesia: General Assist: Kiley Freitas NP Fluids and EBL: see anesthesia note Procedure Note: The patient was seen in the Pre-anesthesia Care Unit and the site of the incision was initialed by me with a felt tipped marker. All questions by the patient were answered to the satisfaction of the patient and the chart was reviewed. The patient was taken to the operating room and placed supine on the [facility] Flat top table. General anesthesia was induced. Neuromonitoring leads were placed. A rolled towel was placed between the shoulder blades to hyperextend out the chest which will allow better exposure of the cervical spine. Halter traction to 10 pounds was placed. The arms were padded and adducted to the patients side making sure all pulses in the hands were present. Tape traction was undertaken on the shoulders to give us better radiographic exposure of the distal cervical spine. A gel-pad was placed under the occiput and 5 degrees of extension was placed on the neck without adverse effects to the patient. The anterior neck was prepped and draped. Pre-operative antibiotics were given 30 minutes prior to the start of the procedure. A c-arm fluoroscope was used to carlos out the incision site. At this time, a time out was taken per usual protocol. Next an incision was made through the skin with a 15 blade scalpel through the subcutaneous tissue down to the platysma. Self-retainers were placed. The platysma was incised along the longitudinal border with a Metzenbaum scissors. Blunt dissection was made through the deep cervical and pre-tracheal fascia taking care to protect the carotid sheath laterally and the Trachea/esophagus medially. The dissection was carried down to the prevertebral fascia. Any crossing vessels were ligated using a vascular clip or coagulated with a bovie. An esophageal retractor was next used to retract the trachea/esophagus and a bent [address] through the anterior annulus of the cervical disk and a lateral C-arm fluoroscopic image was taken to confirm that we were at the correct level. Next, bovie electrocautery was used to expose the bones of cervical 3,and 4 and bipolar electrocautery was used to lift up the Longus colli and capitus muscles. Black-Belt Self Retainers were used to retract the longus colli and capitus muscles bilaterally as well as the trachea/esophagus to the right and the carotid sheath to the left. Smooth thin Black-Belt retractors were placed proximally and distally and a needle was placed again in the anterior annulus of the disk and an image taken to confirm the correct level. At this point, the microscope was wheeled in and an 11 blade scalpel incised the anterior annulus of the cervical 3/4 disc. Next, straight and curved curettes removed the remainder of the disks all the way down to the posterior longitudinal ligament. Carefully, a Kerison number one rongeur incised the posterior longitudinal ligament at the lateral end of the above disks and using a micro, blunt tip nerve hook to separate the posterior longitudinal ligament from the dura, alternating 1 mm and 2 mm Kerison rongeurs removed the posterior longitudinal ligament. Next, Kerison 1mm and 2 mm rongeurs were alternated to get under the uncinate processes and undercut them to perform foraminotomies and factectomies at the cervical 3/4 level to decompress the central canal and cervical 4 nerve root. Next the microscope was wheeled away and the c-arm fluoroscope was wheeled into the field and a lateral image was obtained. Increasing size graft trials were used starting at a 5 mm thick size until the proper tension in the disk space and height baptism obtained. We then placed final free standing cage at C3/4. 7mm thick xtant interbody prosthetic device. Satisfactory placement was confirmed in the AP and lateral views using a C-arm fluoroscope. Copious irrigation of the wound with sterile saline and all bleeding was controlled before closure initiated. At this point, a 10 Croatian round Ari[address] Drain was place deep to the Platysma muscle and the Platysma was approximated with one interrupted 0-Vicryl suture. The subcutaneous tissue was closed with interrupted 2-0 vicryl sutures and the skin was closed with marika. Sterile dressings were placed and a cervical collar placed, the patient extubated, transferred to the stretcher and taken to the Recovery Room in unremarkable condition. Other Notes: Condition Stable Disposition Still a Patient TRISTIAN FIERRO MD May 08, 2024 09:43
[2024-05-08] MEDS ORDERED: ACETAMINOPHEN 325 MG TAB PO PRN (09:45)
[2024-05-08] MEDS ORDERED: ONDANSETRON HCL 4 MG/2 ML VIAL IV PRN (09:45)
[2024-05-08] MEDS ORDERED: MORPHINE SULFATE INJ 2 MG/ml SYRG IV PRN ×2 (09:45)
[2024-05-08] MEDS: D5W/SOD CHLO 0.9% 1,000 ML IV SCH (09:45)
[2024-05-08] MEDS ORDERED: NITROGLYCERIN 0.4 MG SL TAB SL PRN (09:45)
[2024-05-08] MEDS: hydrALAZINE HCL 20 MG/ML VL ONE (09:51)
[2024-05-08] MEDS: DOCUSATE SOD 100 MG CAP PO SCH (10:00)
[2024-05-08] MEDS ORDERED: MEPERIDINE HCL (25 MG/ML) 1ML VIAL IV PRN (10:30)
[2024-05-08] MEDS ORDERED: ACETAMINOPHEN IV 1000 MG/100ML (10MG/ML) IV PRN (10:30)
[2024-05-08] MEDS: ONDANSETRON HCL 4 MG/2 ML VIAL IV ONE (10:30)
[2024-05-08] MEDS ORDERED: HYDROmorphone HCL 2 MG/ML VL/or syr IV PRN (10:30)
--- NOTE | 2024-05-08 10:39 | POSTOP ---
Post-Operative Note Post-Operative Note Preop Diagnosis Cervical stenosis with neurogenic claudication Postop Diagnosis: same as pre op Operation performed C3-4 anterior cervical diskectomy and fusion Specimen None Anesthesia: General Anesthesiologist: Dr. Up Blood Loss(fluid mgmt) See anesthesia note Tourniquet Time None Surgeon Dr. Tristian Fierro Metal Solderer Kiley Torres [facility] [employer] Complications & Mgmt No complications Additional Remarks Disposition: -Pending -Discharge RX: Pending -Follow [place] appointment: [place] [id number] [place] [address] [place] [id number] -Pain: - IV pain meds post op day 1, with PO supplementation, goal is to progress weaning off IV medications and control pain with PO only. morphine 1mg q 4 hours (PAIN 7-10) - P.O. analgesics:Tylenol 650MG (PAIN 1-3) Macy 10/325 mg (PAIN 4-6) - Muscle relaxers scheduled administration. This is a beneficial medications for the incisional pain as it is mostly related to muscle spasms. Flexeril 10 mg TID - Cepacol throat lozenges as needed for sore throat -Antibiotics Operative recommendations: -Postoperative dose:-Post operative antibiotics cefazolin 1 g IV piggyback every 8 hours x 48 hours total of 6 doses -DVT PPX: -Hold all chemical DVT/ blood thinners for 14 days postoperatively -use mechanical DVT PPX such as SCD's, ambulation -Activity: -Pending PT evaluation and patients progression -Sit at side of bed for meals -Goal: Ambulate independently and safely (may use assistive devices if needed) -Brace: - [place] collar for comfort, -Medical Therapy goals: -Afebrile- Patient may develop a expected post operative fever by day 2-3, this may not be accompanied with a elevation in WBC. if fever develops: Acetaminophen for fever. Albuterol nebulizer Tx every 12 hours for 24 hours to facilitate adequate lung expansion and prevent development of atelectasis. -Euglycemic: bloods sugars under 130mmol/L for optimal healing -Normotensive: Avoid events of hypertension. This helps to keep post operative healing intact and avoids destabilization of beneficial hemostatic coagulation. Drains -Bulb drains: record output and characteristics of the drainage EVERY 6 HOURS- if there is no output indicate this by documenting 0ml output in note.. These will be to thumbprint compression unless otherwise ordered. Record output as well as amount in a note at least every 6 houtrs- more if indicated. Wound drainage is described by type, color, amount, and odor. Drainage can be 1 serous: Clear and thin, may be present in healing healthy wound. 2 serosanguineous containing blood may also be present and healthy healing wound 3. Sanguinous primarily blood 4. Purulent this is thick, white, and pus like. It may be indicated to give of a infection and should constitute a call to the provider immediately with the plan that the sample should be cultured. -Shirley: -DC in PACU -Dressings -Anterior cervical patients: Initial surgical dressing may be reinforced if needed. If there is excessive bleeding, leaking, drainage in the bulb drain notify provider -Bowel management: -Colace 100mg bid -Diet: -Clear liquid diet and advance as patient tolerates within dietary limitations ( example: diabetic, Cardiac) -Incentive Spirometer: -10 x hour while awake, RN please educate and observe repeat demonstration, have IS at bedside POD #1 -X-rays: - none indicated at this time -Consults: -Physical Therapy evaluation, treatment recommendations, and discharge recommendations Call with questions Keke Torres ACNP- Orthopaedic Spine Surgery nurse practitioner For Dr Bucky Fierro Patient was examined, chart reviewed, labs evaluated, and diagnostic studies and findings analyzed. Case was discussed with Dr. Tristian Fierro who formulated the plan of care. This medical document was created using an electronic medical record system with [employer] dictation system. Although this document has been carefully reviewed, there might still be some phonetic and typographical errors. These areas are purely typographical due to imperfections of the software programs, a nd do not reflect any compromise in the patient's medical care. Date 05/08/24 Time 10:32 KILEY TORRES NP May 08, 2024 10:39
[2024-05-08] MEDS: hydrALAZINE HCL 20 MG/ML VL IV PRN (10:53)
--- NOTE | 2024-05-08 11:02 | DVHPN2 ---
Progress Note Date Seen: May 08, 2024 Resident Creating Document: JANINE MCKENNA RESIDENT Medical Necessity Reason Pt with a Central, PICC or Fol: No Subjective Review of Systems patient seen and examined at bedside Denies any nausea or vomiting Is tolerating food, currently NPO since s/p surgery improved since arriving to the hospital Objective vital signs Vital Sign Date Time Temp Pulse Resp B/P (MAP) Pulse Ox O2 Delivery O2 Flow Rate FiO2 05/08/24 08:00 70 18 99 Room Air* 0 21 05/08/24 05:00 97.9 133/72 (92) 97.9 Total Intake and Output 05/07/24 05/07/24 05/08/24 15:00 23:00 07:00 Intake Total 50 ml 1450 ml 110 ml Output Total 350 ml 650 ml Balance 50 ml 1100 ml -540 ml medications Current Medications Medications Dose Ordered Sig/Kelechi Route Start Time Stop Time Status Last Admin Dose Admin Acetaminophen/ Hydrocodone Bitart 1 tab Q4HP PRN PO 05/02/24 14:15 Ondansetron HCl 4 mg Q4HP PRN IV 05/02/24 14:15 Enoxaparin Sodium 40 mg DAILY SC 05/03/24 10:00 05/05/24 10:04 40 MG Acetaminophen 650 mg Q6HP PRN PO 05/02/24 14:15 Diagnostic Test (Pha) 1 strip ACHS 05/02/24 17:00 05/08/24 06:16 1 STRIP Insulin Human Regular ACHS SC 05/02/24 17:00 05/07/24 22:00 2 UNITS Dextrose 50 ml UD PRN IV 05/02/24 14:45 Acetaminophen 500 mg TID PO 05/02/24 22:00 05/07/24 23:13 500 MG Docusate Sodium 100 mg BID PO 05/02/24 22:00 05/07/24 23:11 100 MG Gabapentin 300 mg TID PO 05/02/24 22:00 05/07/24 23:12 300 MG Loratadine 10 mg DAILY PO 05/03/24 10:00 05/07/24 10:04 10 MG Risperidone 1 mg DAILY PO 05/03/24 10:00 05/07/24 10:05 1 MG Atorvastatin Calcium 80 mg HS PO 05/02/24 22:00 05/07/24 23:12 80 MG Cholecalciferol 2,000 unit DAILY PO 05/03/24 10:00 05/07/24 09:56 2,000 UNIT Patient Own Medication 1 cap BID PO 05/02/24 22:00 Ferrous Sulfate 325 mg DAILY PO 05/03/24 10:00 05/07/24 09:58 325 MG Metoprolol Succinate 25 mg DAILY PO 05/03/24 10:00 05/05/24 10:01 25 MG Patient Own Medication 1 tab DAILY PO 05/03/24 10:00 Patient Own Medication 1 tab DAILY PO 05/03/24 10:00 Ertapenem 1 gm/ Sodium Chloride 50 ml @ 100 mls/hr DAILY IV 05/05/24 11:45 05/07/24 09:56 100 MLS/HR Sucralfate 1 gm BID@0600,2200 GT 05/06/24 22:00 05/07/24 23:11 1 GM Hydroxyzine Pamoate 25 mg TID PO 05/07/24 14:00 05/07/24 23:25 25 MG Dextrose/Sodium Chloride 1,000 ml @ 100 mls/hr Q10H IV 05/08/24 09:45 Ondansetron HCl 4 mg Q4HP PRN IV 05/08/24 09:45 Acetaminophen 650 mg Q6HP PRN PO 05/08/24 09:45 Acetaminophen/ Hydrocodone Bitart 1 tab Q6HP PRN PO 05/08/24 09:45 Morphine Sulfate 1 mg Q4HP PRN IV 05/08/24 09:45 Cyclobenzaprine HCl 10 mg TID PO 05/08/24 14:00 Docusate Sodium 100 mg BID PO 05/08/24 10:00 Cefazolin Sodium 50 ml @ 100 mls/hr Q8HR IV 05/08/24 14:00 Nitroglycerin 0.4 mg Q5MINP PRN SL 05/08/24 09:45 Morphine Sulfate 2 mg Q30M PRN IV 05/08/24 09:45 Acetaminophen 1,000 mg [id number] PRN IV 05/08/24 10:30 05/08/24 10:31 UNV Hydromorphone HCl 0.25 mg Q10M PRN IV 05/08/24 10:30 05/08/24 11:11 UNV Meperidine HCl 12.5 mg Q10M PRN IV 05/08/24 10:30 05/08/24 11:01 UNV Hydralazine HCl 5 mg [id number] PRN IV 05/08/24 10:45 UNV Examination General Appearance: Cooperative. Well developed. Well nourished. NAD Head Exam: Normal inspection Neck Exam: Normal inspection. Non-tender. Normal alignment Pulmonary/Respiratory: Chest non-tender. Clear bilateral breath sounds, no crackles, no wheezing. Cardiovascular/Chest: Regular rate and rhythm. No murmurs. No JVD. Abdominal Exam: Normal bowel sounds. Soft. normal abdomen, no visible veins, Nontender. No hepatospenomegaly. No masses Ankle Exam: Negative ankle edema Skin Exam: Normal inspection. Normal color. Warm. Dry laboratory and microbiology Laboratory Tests 05/07/24 11:00 05/05/24 13:20 Test 05/07/24 11:00 Range/Units Serum Glucose 159 H 74-106 mg/dL Microbiology Date/Time Source Procedure Growth Status 05/02/24 12:07 Blood Blood Culture - Final NO GROWTH AFTER 5 DAYS OF INCUBATION. Complete 05/02/24 11:21 Urine - [place] Urine Culture - Final Escherichia coli - ESBL Complete Labs and/or images reviewed: Labs reviewed by me, Image(s) reviewed by me Problem List/Assessment/Plan Problem List/Assessment/Plan Acute intractable nausea and vomiting ESBL positive acute complicated UTI History of CVA with right-sided residual weakness Intractable neck and back pain due to cervical stenosis Patient is s/p C3-C4 anterior cervical discectomy and fusion Plan: Zofran and Protonix Carafate Ordered complete abdominal ultrasound Monitor labs Advance diet as tolerated Conservative treatment recommended at this time, we will continue to monitor the patient Plan discussed with Dr. Glass Plan discussed with: Patient, Other Dietary Evaluation Review Comments: follow up with pending Calcium and vit D levels. Expected Outcomes/Goals: meet her estimated needs at 75%, normal Labs JANINE MCKENNA RESIDENT May 08, 2024 11:02
--- NOTE | 2024-05-08 11:48 | DVHPN2 ---
Subjective Patient denies any symptoms. Reviewed: Care Plan, H&P, Labs, Medications, Previous Orders Changes from previous H/P or p: No Changes General: Per HPI Gastrointestinal: Nausea, Vomiting Genitourinary: Other (Malodorous urine) Musculoskeletal: neck pain, back pain Objective Vitals Vital Signs Date Time Temp Pulse Resp B/P (MAP) Pulse Ox O2 Delivery O2 Flow Rate FiO2 05/08/24 08:00 70 18 99 Room Air* 0 21 05/08/24 05:00 97.9 133/72 (92) 97.9 Intake/Output Intake and Output 05/08/24 07:00 Intake Total 1610 ml Output Total 1000 ml Balance 610 ml Intake Oral 1250 ml IV Total 360 ml Output Urine Total 1000 ml General Appearance: Alert, Oriented X3, Cooperative, No acute distress HEENT: Atraumatic, PERRLA, EOMI, Mucous membr. moist/pink Neck: Supple Lungs: Clear to auscultation, Normal air movement Cardiovascular: Regular rate, Normal S1, Normal S2, No murmurs, Gallops, Rubs Abdomen: Normal bowel sounds, Soft, No tenderness Extremities: Other (Right upper extremity contraction) Neuro: Cranial nerves 3-12 NL Skin: Dry, Intact Psych/Mental Status: Mental status NL Medications Current Medications Medications Dose Ordered Sig/Kelechi Route Start Time Stop Time Status Last Admin Dose Admin Enoxaparin Sodium 40 mg DAILY SC 05/03/24 10:00 05/05/24 10:04 40 MG Diagnostic Test (Pha) 1 strip ACHS 05/02/24 17:00 05/08/24 06:16 1 STRIP Insulin Human Regular ACHS SC 05/02/24 17:00 05/07/24 22:00 2 UNITS Dextrose 50 ml UD PRN IV 05/02/24 14:45 Acetaminophen 500 mg TID PO 05/02/24 22:00 05/07/24 23:13 500 MG Gabapentin 300 mg TID PO 05/02/24 22:00 05/07/24 23:12 300 MG Loratadine 10 mg DAILY PO 05/03/24 10:00 05/07/24 10:04 10 MG Risperidone 1 mg DAILY PO 05/03/24 10:00 05/07/24 10:05 1 MG Atorvastatin Calcium 80 mg HS PO 05/02/24 22:00 05/07/24 23:12 80 MG Cholecalciferol 2,000 unit DAILY PO 05/03/24 10:00 05/07/24 09:56 2,000 UNIT Patient Own Medication 1 cap BID PO 05/02/24 22:00 Ferrous Sulfate 325 mg DAILY PO 05/03/24 10:00 05/07/24 09:58 325 MG Metoprolol Succinate 25 mg DAILY PO 05/03/24 10:00 05/05/24 10:01 25 MG Patient Own Medication 1 tab DAILY PO 05/03/24 10:00 Patient Own Medication 1 tab DAILY PO 05/03/24 10:00 Ertapenem 1 gm/ Sodium Chloride 50 ml @ 100 mls/hr DAILY IV 05/05/24 11:45 05/07/24 09:56 100 MLS/HR Sucralfate 1 gm BID@0600,2200 GT 05/06/24 22:00 05/07/24 23:11 1 GM Hydroxyzine Pamoate 25 mg TID PO 05/07/24 14:00 05/07/24 23:25 25 MG Dextrose/Sodium Chloride 1,000 ml @ 100 mls/hr Q10H IV 05/08/24 09:45 Ondansetron HCl 4 mg Q4HP PRN IV 05/08/24 09:45 Acetaminophen 650 mg Q6HP PRN PO 05/08/24 09:45 Acetaminophen/ Hydrocodone Bitart 1 tab Q6HP PRN PO 05/08/24 09:45 Morphine Sulfate 1 mg Q4HP PRN IV 05/08/24 09:45 Cyclobenzaprine HCl 10 mg TID PO 05/08/24 14:00 Docusate Sodium 100 mg BID PO 05/08/24 10:00 Cefazolin Sodium 50 ml @ 100 mls/hr Q8HR IV 05/08/24 14:00 Nitroglycerin 0.4 mg Q5MINP PRN SL 05/08/24 09:45 Morphine Sulfate 2 mg Q30M PRN IV 05/08/24 09:45 Hydralazine HCl 5 mg [id number] PRN IV 05/08/24 10:45 Laboratory Results Laboratory Tests 05/05/24 13:20 05/07/24 11:00 Urinalysis Test 05/02/24 11:21 05/07/24 11:45 Urine WBC Clumps Present /hpf (None Seen) Urine Color Light-yellow (Yellow) Urine Clarity Clear (Clear) Urine pH 7.0 (5.0-9.0) Urine Specific Tina 1.022 (1.001-1.035) Urine Protein Trace (Negative) H Urine Ketones Negative (Negative) Urine Blood Negative /uL (Negative) Urine Nitrite Negative (Negative) Urine Bilirubin Negative (Negative) Urine Urobilinogen 3 mg/dL (Negative) H Urine Leukocyte Esterase 2+ /uL (Negative) Urine RBC 9 /hpf (0 - 4) Urine Microscopic WBC 24 /HPF (0-5) H Urine Squamous Epithelial Cells Few /hpf (<5) Urine Bacteria None seen /hpf (None Seen) Urine Glucose Normal mg/dL (Normal) Microbiology Microbiology Date/Time Source Procedure Growth Status 05/02/24 12:07 Blood Blood Culture - Final NO GROWTH AFTER 5 DAYS OF INCUBATION. Complete 05/02/24 11:21 Urine - [place] Urine Culture - Final Escherichia coli - ESBL Complete Labs and/or images reviewed: Labs reviewed by me, Image(s) reviewed by me Assessment/Plan Assessment/Plan Impression: -cervical stenosis -complicated cystitis -history of CVA with right-sided weakness -primary hypertension -diabetes mellitus -hypomagnesemia Plan: Events: Patient postop. Uneventful surgery. -spinal surgery consultation: Recommendations reviewed -midline placement -continue IV Invanz -regular insulin sliding scale -antihypertensives -PUD, DVT prophylaxis Repeat labs in a.m. Total time spent with patient discussing and formulating plan of care: 35 minutes. This medical document was created using an electronic medical record system with [employer] dictation system. Although this document has been carefully reviewed, there may still be some phonetic and typographical errors. These areas are purely typographical due to imperfections of the software programs, and do not reflect any compromise in the patient's medical care. Plan discussed with: Patient, Other (RN) My Orders Orders - HUMBERTO JARQUIN NP Procedure Category Date Status Time Vitamin D 25-Hydroxy LAB 05/07/24 In Process D2 + D3 18:27 Date of Service: May 08, 2024 Billing Provider: LAURA DURAN INT Common Visit Codes: [id number] INP/OBS CARE(HIGH) HUMBERTO JARQUIN NP May 08, 2024 11:48
[2024-05-08] MEDS: LABETALOL HCL 20 MG/4 ML VL IV ONE (11:53)
--- NOTE | 2024-05-08 12:18 | DVH ---
C-ARM FLUOROSCOPY: PROCEDURE: c3-c4 spinal fusion FLUOROSCOPY TIME: 17.25sec DAP: 2 mgy FINDINGS: Spot intraoperative C arm radiographs demonstrating c3-c4 spinal fusion. IMPRESSION: Please refer to surgical report for detailed findings.
[2024-05-08] MEDS: CYCLOBENZAPRINE HCL 10 MG TAB PO SCH (12:56)
[2024-05-08] MEDS: ceFAZolin 1GM/50ML 50 ML IV SCH (12:56)
[2024-05-08] MEDS: LABETALOL HCL 20 MG/4 ML VL IV PRN (12:58)
[2024-05-08] MEDS: HYDROcodone-ACET 10/325MG TAB PO PRN (16:24)
[2024-05-09 01:00] VITALS: BP 123/78; PULSE 94; RESP 20; TEMP 98.2; O2SAT 97
--- NOTE | 2024-05-09 08:51 | DVHPN2 ---
Subjective Patient denies any symptoms. Reviewed: Care Plan, H&P, Labs, Medications, Previous Orders Changes from previous H/P or p: No Changes General: Per HPI Gastrointestinal: Nausea, Vomiting Genitourinary: Other (Malodorous urine) Musculoskeletal: neck pain, back pain Objective Vitals Vital Signs Date Time Temp Pulse Resp B/P (MAP) Pulse Ox O2 Delivery O2 Flow Rate FiO2 05/09/24 06:08 98.1 05/09/24 01:00 94 20 123/78 (93) 97 05/08/24 20:00 Room Air* 0 21 Intake/Output Intake and Output 05/09/24 07:00 Intake Total 1080 ml Output Total 1800 ml Balance -720 ml Intake Oral 880 ml IV Total 200 ml Output Urine Total 1800 ml General Appearance: Alert, Oriented X3, Cooperative, No acute distress HEENT: Atraumatic, PERRLA, EOMI, Mucous membr. moist/pink Neck: Supple Lungs: Clear to auscultation, Normal air movement Cardiovascular: Regular rate, Normal S1, Normal S2, No murmurs, Gallops, Rubs Abdomen: Normal bowel sounds, Soft, No tenderness Extremities: Other (Right upper extremity contraction) Neuro: Cranial nerves 3-12 NL Skin: Dry, Intact Psych/Mental Status: Mental status NL Medications Current Medications Medications Dose Ordered Sig/Kelechi Route Start Time Stop Time Status Last Admin Dose Admin Enoxaparin Sodium 40 mg DAILY SC 05/03/24 10:00 05/05/24 10:04 40 MG Diagnostic Test (Pha) 1 strip ACHS 05/02/24 17:00 05/09/24 06:22 1 STRIP Insulin Human Regular ACHS SC 05/02/24 17:00 05/09/24 06:22 4 UNITS Dextrose 50 ml UD PRN IV 05/02/24 14:45 Acetaminophen 500 mg TID PO 05/02/24 22:00 05/09/24 05:08 500 MG Gabapentin 300 mg TID PO 05/02/24 22:00 05/09/24 05:07 300 MG Loratadine 10 mg DAILY PO 05/03/24 10:00 05/07/24 10:04 10 MG Risperidone 1 mg DAILY PO 05/03/24 10:00 05/07/24 10:05 1 MG Atorvastatin Calcium 80 mg HS PO 05/02/24 22:00 05/08/24 22:54 80 MG Cholecalciferol 2,000 unit DAILY PO 05/03/24 10:00 05/07/24 09:56 2,000 UNIT Patient Own Medication 1 cap BID PO 05/02/24 22:00 Ferrous Sulfate 325 mg DAILY PO 05/03/24 10:00 05/07/24 09:58 325 MG Metoprolol Succinate 25 mg DAILY PO 05/03/24 10:00 05/05/24 10:01 25 MG Patient Own Medication 1 tab DAILY PO 05/03/24 10:00 Patient Own Medication 1 tab DAILY PO 05/03/24 10:00 Ertapenem 1 gm/ Sodium Chloride 50 ml @ 100 mls/hr DAILY IV 05/05/24 11:45 05/07/24 09:56 100 MLS/HR Sucralfate 1 gm BID@0600,2200 GT 05/06/24 22:00 05/09/24 05:06 1 GM Hydroxyzine Pamoate 25 mg TID PO 05/07/24 14:00 05/09/24 05:07 25 MG Dextrose/Sodium Chloride 1,000 ml @ 100 mls/hr Q10H IV 05/08/24 09:45 Ondansetron HCl 4 mg Q4HP PRN IV 05/08/24 09:45 Acetaminophen 650 mg Q6HP PRN PO 05/08/24 09:45 Acetaminophen/ Hydrocodone Bitart 1 tab Q6HP PRN PO 05/08/24 09:45 05/08/24 16:24 1 TAB Morphine Sulfate 1 mg Q4HP PRN IV 05/08/24 09:45 Cyclobenzaprine HCl 10 mg TID PO 05/08/24 14:00 05/09/24 05:08 10 MG Docusate Sodium 100 mg BID PO 05/08/24 10:00 05/08/24 22:53 100 MG Cefazolin Sodium 50 ml @ 100 mls/hr Q8HR IV 05/08/24 14:00 05/09/24 05:06 100 MLS/HR Nitroglycerin 0.4 mg Q5MINP PRN SL 05/08/24 09:45 Morphine Sulfate 2 mg Q30M PRN IV 05/08/24 09:45 Hydralazine HCl 5 mg [id number] PRN IV 05/08/24 10:45 05/08/24 10:53 2.5 MG Labetalol HCl 10 mg Q2HPRN PRN IV 05/08/24 12:30 05/08/24 12:58 10 MG Laboratory Results Laboratory Tests 05/05/24 13:20 05/07/24 11:00 Urinalysis Test 05/02/24 11:21 05/07/24 11:45 Urine WBC Clumps Present /hpf (None Seen) Urine Color Light-yellow (Yellow) Urine Clarity Clear (Clear) Urine pH 7.0 (5.0-9.0) Urine Specific Ocate 1.022 (1.001-1.035) Urine Protein Trace (Negative) H Urine Ketones Negative (Negative) Urine Blood Negative /uL (Negative) Urine Nitrite Negative (Negative) Urine Bilirubin Negative (Negative) Urine Urobilinogen 3 mg/dL (Negative) H Urine Leukocyte Esterase 2+ /uL (Negative) Urine RBC 9 /hpf (0 - 4) Urine Microscopic WBC 24 /HPF (0-5) H Urine Squamous Epithelial Cells Few /hpf (<5) Urine Bacteria None seen /hpf (None Seen) Urine Glucose Normal mg/dL (Normal) Microbiology Microbiology Date/Time Source Procedure Growth Status 05/02/24 12:07 Blood Blood Culture - Final NO GROWTH AFTER 5 DAYS OF INCUBATION. Complete 05/02/24 11:21 Urine - [place] Urine Culture - Final Escherichia coli - ESBL Complete Labs and/or images reviewed: Labs reviewed by me, Image(s) reviewed by me Assessment/Plan Assessment/Plan Impression: -cervical stenosis -complicated cystitis -history of CVA with right-sided weakness -primary hypertension -diabetes mellitus -hypomagnesemia Plan: Events: Patient was pulled out CASSI drain overnight. I assessed the patient's surgical site with no noted swelling. Patient has not 0 difficulty swallowing, or speaking, without any signs of labored breathing. Long discussion made with the patient's family, Andreas, regarding post hospital disposition. Given the patient's need for IV antibiotics for two weeks, physical therapy, recommendations are for long term facility. She was agreeable. Social service consultation will be placed. -spinal surgery consultation: Recommendations reviewed -midline placement -continue IV Invanz -regular insulin sliding scale -antihypertensives -PUD, DVT prophylaxis Repeat labs in a.m. Total time spent with patient discussing and formulating plan of care: 35 minutes. This medical document was created using an electronic medical record system with [employer] dictation system. Although this document has been carefully reviewed, there may still be some phonetic and typographical errors. These areas are purely typographical due to imperfections of the software programs, and do not reflect any compromise in the patient's medical care. Plan discussed with: Patient, Other (RN, Sister) My Orders Orders - HUMBERTO JARQUIN NP Procedure Category Date Status Time Labetalol Hcl PHA 05/08/24 In Process (Labetalol Hcl) 12:30 * Bedspread Seamer CONS 05/09/24 Transmitted Consult Basic Metabolic Panel LAB 05/09/24 Logged 08:41 Complete Blood Count LAB 05/09/24 Logged 08:41 Date of Service: May 09, 2024 Billing Provider: HUMBERTO JARQUIN NP Common Visit Codes: [id number] INP/OBS CARE(HIGH) HUMBERTO JARQUIN NP May 09, 2024 08:51
[2024-05-09 08:56] VITALS: BP 118/64; PULSE 91; RESP 17; TEMP 98.1; O2SAT 92
[2024-05-09 11:06] LABS: Basophils # (auto) 0 10 ^3/uL (0-0.2); Basophils % (auto) 0.3 % (0.0-2.0); Eosinophils # (auto) 0.1 10 ^3/uL (0-0.8); Eosinophils % (auto) 0.9 % (0.0-7.0); Hematocrit 27.8 % (36.0-46.0); Hemoglobin 9.5 g/dL (12.2-16.2); Lymphocytes # (auto) 2.3 10 ^3/uL (0.4-5.4); Mean Corpuscular Hemoglobin 28.1 pg (28.0-32.0); Mean Corpuscular Hgb Conc. 34.2 g/dL (32.0-36.0); Mean Corpuscular Volume 82.2 fL (80.0-100.0); Monocytes # (auto) 0.7 10 ^3/uL (0-1.3); Monocytes % (auto) 7.1 % (0.0-12.0); Neutrophils # (auto) 7.3 10 ^3/uL (1.6-8.6); Neutrophils % (auto) 69.7 % (37.0-80.0); Platelet Count (auto) 305 10^3/uL (140-450); Red Blood Cells 3.38 10^6/uL (4.0-5.20); Red Cell Distribution Width 16.7 % (11.8-14.3); White Blood Cell 10.5 10^3/uL (4.4-10.8)
--- NOTE | 2024-05-09 11:11 | DVHPN2 ---
Progress Note Date Seen: May 09, 2024 Resident Creating Document: JANINE MCKENNA RESIDENT Medical Necessity Reason Pt with a Central, PICC or Fol: No Subjective Review of Systems patient seen and examined at bedside Denies any nausea or vomiting Is tolerating food Overnight episode of confusion Currently AO x2 Last bowel movement 2 days ago improved since arriving to the hospital Objective vital signs Vital Sign Date Time Temp Pulse Resp B/P (MAP) Pulse Ox O2 Delivery O2 Flow Rate FiO2 05/09/24 09:52 91 118/64 05/09/24 08:56 98.1 17 92 98.1 05/08/24 20:00 Room Air* 0 21 Total Intake and Output 05/08/24 05/08/24 05/09/24 15:00 23:00 07:00 Intake Total 50 ml 480 ml 550 ml Output Total 900 ml 900 ml Balance 50 ml -420 ml -350 ml medications Current Medications Medications Dose Ordered Sig/Kelechi Route Start Time Stop Time Status Last Admin Dose Admin Enoxaparin Sodium 40 mg DAILY SC 05/03/24 10:00 05/05/24 10:04 40 MG Diagnostic Test (Pha) 1 strip ACHS 05/02/24 17:00 05/09/24 06:22 1 STRIP Insulin Human Regular ACHS SC 05/02/24 17:00 05/09/24 06:22 4 UNITS Dextrose 50 ml UD PRN IV 05/02/24 14:45 Acetaminophen 500 mg TID PO 05/02/24 22:00 05/09/24 05:08 500 MG Gabapentin 300 mg TID PO 05/02/24 22:00 05/09/24 05:07 300 MG Loratadine 10 mg DAILY PO 05/03/24 10:00 05/09/24 09:52 10 MG Risperidone 1 mg DAILY PO 05/03/24 10:00 05/09/24 09:52 1 MG Atorvastatin Calcium 80 mg HS PO 05/02/24 22:00 05/08/24 22:54 80 MG Cholecalciferol 2,000 unit DAILY PO 05/03/24 10:00 05/09/24 09:52 2,000 UNIT Patient Own Medication 1 cap BID PO 05/02/24 22:00 Ferrous Sulfate 325 mg DAILY PO 05/03/24 10:00 05/09/24 09:52 325 MG Metoprolol Succinate 25 mg DAILY PO 05/03/24 10:00 05/09/24 09:52 25 MG Patient Own Medication 1 tab DAILY PO 05/03/24 10:00 Patient Own Medication 1 tab DAILY PO 05/03/24 10:00 Ertapenem 1 gm/ Sodium Chloride 50 ml @ 100 mls/hr DAILY IV 05/05/24 11:45 05/09/24 10:42 100 MLS/HR Sucralfate 1 gm BID@0600,2200 GT 05/06/24 22:00 05/09/24 05:06 1 GM Hydroxyzine Pamoate 25 mg TID PO 05/07/24 14:00 05/09/24 05:07 25 MG Dextrose/Sodium Chloride 1,000 ml @ 100 mls/hr Q10H IV 05/08/24 09:45 Ondansetron HCl 4 mg Q4HP PRN IV 05/08/24 09:45 Acetaminophen 650 mg Q6HP PRN PO 05/08/24 09:45 Acetaminophen/ Hydrocodone Bitart 1 tab Q6HP PRN PO 05/08/24 09:45 05/08/24 16:24 1 TAB Morphine Sulfate 1 mg Q4HP PRN IV 05/08/24 09:45 Cyclobenzaprine HCl 10 mg TID PO 05/08/24 14:00 05/09/24 05:08 10 MG Docusate Sodium 100 mg BID PO 05/08/24 10:00 05/08/24 22:53 100 MG Cefazolin Sodium 50 ml @ 100 mls/hr Q8HR IV 05/08/24 14:00 05/09/24 05:06 100 MLS/HR Nitroglycerin 0.4 mg Q5MINP PRN SL 05/08/24 09:45 Morphine Sulfate 2 mg Q30M PRN IV 05/08/24 09:45 Hydralazine HCl 5 mg [id number] PRN IV 05/08/24 10:45 05/08/24 10:53 2.5 MG Labetalol HCl 10 mg Q2HPRN PRN IV 05/08/24 12:30 05/08/24 12:58 10 MG Examination General Appearance: Cooperative. Well developed. Well nourished. NAD Head Exam: Normal inspection Neck Exam: Normal inspection. Dressing noted on the left lateral aspect of the neck. Cardiovascular/Chest: Regular rate and rhythm. No murmurs. No JVD. Abdominal Exam: Normal bowel sounds. Soft. normal abdomen, no visible veins, Nontender. No hepatospenomegaly. No masses Ankle Exam: Negative ankle edema Skin Exam: Normal inspection. Normal color. Warm. Dry laboratory and microbiology Laboratory Tests 05/09/24 10:30 Test 05/09/24 10:30 Range/Units Serum Glucose Pending Microbiology Date/Time Source Procedure Growth Status 05/02/24 12:07 Blood Blood Culture - Final NO GROWTH AFTER 5 DAYS OF INCUBATION. Complete 05/02/24 11:21 Urine - [place] Urine Culture - Final Escherichia coli - ESBL Complete Labs and/or images reviewed: Labs reviewed by me, Image(s) reviewed by me Problem List/Assessment/Plan Problem List/Assessment/Plan Acute intractable nausea and vomiting ESBL positive acute complicated UTI History of CVA with right-sided residual weakness Intractable neck and back pain due to cervical stenosis Patient is s/p C3-C4 anterior cervical discectomy and fusion Delirium overnight Plan: Zofran and Protonix Carafate Continue above medications Monitor labs Advance diet as tolerated stable from GI perspective Plan discussed with Dr. Glass Plan discussed with: Patient, Other (RN) Dietary Evaluation Review Comments: follow up with pending Calcium and vit D levels. Expected Outcomes/Goals: meet her estimated needs at 75%, normal Labs JANINE MCKENNA RESIDENT May 09, 2024 11:11
[2024-05-09 11:15] LABS: Chloride 104 mmol/L (98-107); Potassium 4.1 mmol/L (3.5-5.1); Sodium 139 mmol/L (136-145)
[2024-05-09 11:17] LABS: Calcium 9.2 mg/dL (8.7-10.4)
[2024-05-09 11:21] LABS: BUN/Creatinine Ratio 17.8 (10.0-20.0); Blood Urea Nitrogen 16 mg/dL (9-23)
[2024-05-09 11:24] LABS: Glucose 151 mg/dL (74-106)
--- NOTE | 2024-05-09 12:03 | DVHPN2 ---
Progress Note - Surgical Date Seen: May 09, 2024 Post op day Post op day: 1 Subjective Patient reports: No new complaints, Feels better Review of Systems: HEENT:Normal, CVS:Normal, RESPIRATORY:Normal, GI:Normal, :Normal, MSK:Abnormal (Unchanged residual weakness status post old stroke), NEURO:Abnormal (Patient verbalizes her slight improvement in her left leg) Objective Vital signs Vital Sign Date Time Temp Pulse Resp B/P (MAP) Pulse Ox O2 Delivery O2 Flow Rate FiO2 05/09/24 09:52 91 118/64 05/09/24 08:56 98.1 17 92 98.1 05/09/24 08:00 Room Air* 0 21 Total Intake and Output 05/08/24 05/08/24 05/09/24 15:00 23:00 07:00 Intake Total 50 ml 480 ml 550 ml Output Total 900 ml 900 ml Balance 50 ml -420 ml -350 ml Medications Current Medications Medications Dose Ordered Sig/Kelechi Route Start Time Stop Time Status Last Admin Dose Admin Enoxaparin Sodium 40 mg DAILY SC 05/03/24 10:00 05/05/24 10:04 40 MG Diagnostic Test (Pha) 1 strip ACHS 05/02/24 17:00 05/09/24 11:53 1 STRIP Insulin Human Regular ACHS SC 05/02/24 17:00 05/09/24 06:22 4 UNITS Dextrose 50 ml UD PRN IV 05/02/24 14:45 Acetaminophen 500 mg TID PO 05/02/24 22:00 05/09/24 05:08 500 MG Gabapentin 300 mg TID PO 05/02/24 22:00 05/09/24 05:07 300 MG Loratadine 10 mg DAILY PO 05/03/24 10:00 05/09/24 09:52 10 MG Risperidone 1 mg DAILY PO 05/03/24 10:00 05/09/24 09:52 1 MG Atorvastatin Calcium 80 mg HS PO 05/02/24 22:00 05/08/24 22:54 80 MG Cholecalciferol 2,000 unit DAILY PO 05/03/24 10:00 05/09/24 09:52 2,000 UNIT Patient Own Medication 1 cap BID PO 05/02/24 22:00 Ferrous Sulfate 325 mg DAILY PO 05/03/24 10:00 05/09/24 09:52 325 MG Metoprolol Succinate 25 mg DAILY PO 05/03/24 10:00 05/09/24 09:52 25 MG Patient Own Medication 1 tab DAILY PO 05/03/24 10:00 Patient Own Medication 1 tab DAILY PO 05/03/24 10:00 Ertapenem 1 gm/ Sodium Chloride 50 ml @ 100 mls/hr DAILY IV 05/05/24 11:45 05/09/24 10:42 100 MLS/HR Sucralfate 1 gm BID@0600,2200 GT 05/06/24 22:00 05/09/24 05:06 1 GM Hydroxyzine Pamoate 25 mg TID PO 05/07/24 14:00 05/09/24 05:07 25 MG Dextrose/Sodium Chloride 1,000 ml @ 100 mls/hr Q10H IV 05/08/24 09:45 Ondansetron HCl 4 mg Q4HP PRN IV 05/08/24 09:45 Acetaminophen 650 mg Q6HP PRN PO 05/08/24 09:45 Acetaminophen/ Hydrocodone Bitart 1 tab Q6HP PRN PO 05/08/24 09:45 05/08/24 16:24 1 TAB Morphine Sulfate 1 mg Q4HP PRN IV 05/08/24 09:45 Cyclobenzaprine HCl 10 mg TID PO 05/08/24 14:00 05/09/24 05:08 10 MG Docusate Sodium 100 mg BID PO 05/08/24 10:00 05/08/24 22:53 100 MG Cefazolin Sodium 50 ml @ 100 mls/hr Q8HR IV 05/08/24 14:00 05/09/24 05:06 100 MLS/HR Nitroglycerin 0.4 mg Q5MINP PRN SL 05/08/24 09:45 Morphine Sulfate 2 mg Q30M PRN IV 05/08/24 09:45 Hydralazine HCl 5 mg [id number] PRN IV 05/08/24 10:45 05/08/24 10:53 2.5 MG Labetalol HCl 10 mg Q2HPRN PRN IV 05/08/24 12:30 05/08/24 12:58 10 MG Laboratory Laboratory Tests 05/09/24 10:30 Test 05/09/24 10:30 Range/Units Serum Glucose 151 H 74-106 mg/dL Microbiology Date/Time Source Procedure Growth Status 05/02/24 12:07 Blood Blood Culture - Final NO GROWTH AFTER 5 DAYS OF INCUBATION. Complete 05/02/24 11:21 Urine - [place] Urine Culture - Final Escherichia coli - ESBL Complete Examination: GENERAL:Normal, HEENT:Normal, NECK:Normal, LUNGS:Normal, CVS:Normal, ABDOMEN:Normal, MSK:Abnormal (Unchanged residual weakness status post old stroke. Patient verbalizes her slight improvement in her left leg), SKIN:Normal (Anterior wound well approximated with Monocryl and Steri-Strips), NEURO:Abnormal (Unchanged residual weakness status post old stroke. Patient verbalizes her slight improvement in her left leg), :Normal Problem List/Assessment/Plan Problems: (1) Muscle spasms of neck (2) Postoperative pain after spinal surgery (3) Cervical spinal cord compression (4) Cervical stenosis of spinal canal Assessment and Plan pt pulled drain out last night anchor suture- site evaluated, some residual drainage continues small amount of strike through silver dollar size on current dressing. Wound edges still well approximated Steri-Strips intact new dressing applied No swelling noted, patient complains of slight sore throat Patient states she has improvement to her left leg and strength no change in her right upper and lower extremity still demonstrating signs of residual CVA symptoms Further management and care per admitting team's discretion Disposition: -no barriers to discharge her transferred to acute rehab from a spine surgery perspective, discharge per admitting team's discretion -Discharge RX: Recommend to include a muscle relaxer as well as oral analgesia -Follow up appointment: with Dr Fierro on 05/23/2024 at 0930 hours [id number] [facility] [address] [place] [id number] -Pain: - P.O. analgesics:Tylenol 650MG (PAIN 1-3) [place] 10/325 mg (PAIN 4-6) - Muscle relaxers scheduled administration. This is a beneficial medications for the incisional pain as it is mostly related to muscle spasms. Flexeril 10 mg TID - Cepacol throat lozenges as needed for sore throat -Antibiotics Operative recommendations: -Postoperative dose:-Post operative antibiotics cefazolin 1 g IV piggyback every 8 hours x 48 hours total of 6 doses -DVT PPX: -Hold all chemical DVT/ blood thinners for 14 days postoperatively -use mechanical DVT PPX such as SCD's, ambulation -Activity: -Pending PT evaluation and patients progression -Sit at side of bed for meals -Goal: Ambulate independently and safely (may use assistive devices if needed) -Brace: - Bomoseen collar for comfort if available -Medical Therapy goals: -Afebrile- Patient may develop a expected post operative fever by day 2-3, this may not be accompanied with a elevation in WBC. if fever develops: Acetaminophen for fever. Albuterol nebulizer Tx every 12 hours for 24 hours to facilitate adequate lung expansion and prevent development of atelectasis. -Euglycemic: bloods sugars under 130mmol/L for optimal healing -Normotensive: Avoid events of hypertension. This helps to keep post operative healing intact and avoids destabilization of beneficial hemostatic coagulation. -Dressings -Anterior cervical patients: Dressing may be changed by nursing PRN if it becomes soiled -Bowel management: -Colace 100mg bid -Diet: -advance as patient tolerates within dietary limitations ( example: diabetic, Cardiac) -Incentive Spirometer: -10 x hour while awake, RN please educate and observe repeat demonstration, have IS at bedside POD #1 -X-rays: - none indicated at this time -Consults: -Physical Therapy evaluation, treatment recommendations, and discharge recommendations Call with questions Keke Torres [facility] Surgery nurse practitioner For Dr Bucky Fierro Patient was examined, chart reviewed, labs evaluated, and diagnostic studies and findings analyzed. Case was discussed with Dr. Tristian Fierro who formulated the plan of care. This medical document was created using an electronic medical record system with [employer] dictation system. Although this document has been carefully reviewed, there might still be some phonetic and typographical errors. These areas are purely typographical due to imperfections of the software programs, and do not reflect any compromise in the patient's medical care. Plan discussed with Plan discussed with: Patient, Other (Nam/ILIANA stone) Visit Coding Surgery Date of Service if different f: May 09, 2024 Billing Provider: ANA LILIA TORRES NP Surgery Visit Codes: NOT BILLABLE ANA LILIA TORRES NP May 09, 2024 12:03
[2024-05-09 12:21] LABS: Anion Gap 8 (5-15); Carbon Dioxide 27 mmol/L (20-31)
[2024-05-09 13:00] VITALS: BP 108/68; PULSE 87; RESP 17; TEMP 98.1; O2SAT 92
[2024-05-09 17:00] VITALS: BP 113/71; PULSE 76; RESP 19; TEMP 97.1; O2SAT 96
[2024-05-09 20:00] VITALS: RESP 18; O2SAT 96
[2024-05-09 20:51] VITALS: BP 123/76; PULSE 80; RESP 15; TEMP 98.2; O2SAT 94
[2024-05-10] VITALS (8 sets, daily range): BP systolic 106–147; BP diastolic 62–81; PULSE 76–92; RESP 15–18; TEMP 97.9–99; O2SAT 92–95
--- NOTE | 2024-05-10 17:03 | DVHDS2 ---
Discharge Summary Date of Admission May 02, 2024 at 14:10 Date of Discharge: May 10, 2024 Admitting Diagnosis Intractable neck and back pain Labs/Diagnostic Data: Laboratory Results Test 05/10/24 11:58 05/09/24 10:30 05/07/24 18:58 05/07/24 11:45 POC Glucose 114 mg/dl (70-106) White Blood Count 10.5 10^3/uL (4.4-10.8) Red Blood Count 3.38 10^6/uL (4.0-5.20) Hemoglobin 9.5 g/dL (12.2-16.2) Hematocrit 27.8 % (36.0-46.0) Mean Corpuscular Volume 82.2 fL (80.0-100.0) Mean Corpuscular Hemoglobin 28.1 pg (28.0-32.0) Mean Corpuscular Hemoglobin Concent 34.2 g/dL (32.0-36.0) Red Cell Distribution Width 16.7 % (11.8-14.3) Platelet Count 305 10^3/uL (140-450) Mean Platelet Volume 6.9 fL (6.9-10.8) Neutrophils (%) (Auto) 69.7 % (37.0-80.0) Lymphocytes (%) (Auto) 22.0 % (10.0-50.0) Monocytes (%) (Auto) 7.1 % (0.0-12.0) Eosinophils (%) (Auto) 0.9 % (0.0-7.0) Basophils (%) (Auto) 0.3 % (0.0-2.0) Neutrophils # (Auto) 7.3 10 ^3/uL (1.6-8.6) Lymphocytes # (Auto) 2.3 10 ^3/uL (0.4-5.4) Monocytes # (Auto) 0.7 10 ^3/uL (0-1.3) Eosinophils # (Auto) 0.1 10 ^3/uL (0-0.8) Basophils # (Auto) 0 10 ^3/uL (0-0.2) Nucleated Red Blood Cells 0.0 % Sodium Level 139 mmol/L (136-145) Potassium Level 4.1 mmol/L (3.5-5.1) Chloride Level 104 mmol/L (98-107) Carbon Dioxide Level 27 mmol/L (20-31) Anion Gap 8 (5-15) Blood Urea Nitrogen 16 mg/dL (9-23) Creatinine 0.90 mg/dL (0.550-1.02) Glomerular Filtration Rate Calc 71 mL/min (>90) BUN/Creatinine Ratio 17.8 (10.0-20.0) Serum Glucose 151 mg/dL (74-106) Calcium Level 9.2 mg/dL (8.7-10.4) Urine Color Light-yellow (Yellow) Urine Clarity Clear (Clear) Urine pH 7.0 (5.0-9.0) Urine Specific [place] 1.022 (1.001-1.035) Urine Protein Trace (Negative) Urine Ketones Negative (Negative) Urine Blood Negative /uL (Negative) Urine Nitrite Negative (Negative) Urine Bilirubin Negative (Negative) Urine Urobilinogen 3 mg/dL (Negative) Urine Leukocyte Esterase 2+ /uL (Negative) Urine RBC 9 /hpf (0 - 4) Urine Microscopic WBC 24 /HPF (0-5) Urine Squamous Epithelial Cells Few /hpf (<5) Urine Bacteria None seen /hpf (None Seen) Urine Glucose Normal mg/dL (Normal) Test 05/07/24 11:00 05/05/24 13:20 05/02/24 15:20 05/02/24 13:54 Magnesium Level 1.5 mg/dL (1.6-2.6) Prothrombin Time 10.7 sec (9.3-11.8) Prothrombin Time INR 1.01 (0.9-1.15) Activated Partial Thromboplast Time 28.2 SEC (24.5-34.5) Total Bilirubin 0.2 mg/dL (0.2-1.0) Aspartate Amino Transferase (AST) 18 U/L (13-40) Alanine Aminotransferase (ALT) 13 U/L (7-40) Alkaline Phosphatase 56 U/L (46-116) Total Protein 6.7 g/dL (5.7-8.2) Albumin 4.1 g/dL (3.2-4.8) Erythrocyte Sedimentation Rate 10 mm/hr (0-20) Lactic Acid Level 2.0 mmol/L (0.4-2.0) Troponin I High Sensitivity 3 ng/L (</=34) C-Reactive Protein High Sensitivity 0.38 mg/dL (<1.0) Test 05/02/24 12:07 05/02/24 11:21 Hemoglobin A1c 6.0 % A1C (<5.7) B-Type Natriuretic Peptide 117.04 pg/mL (0-100) Urine WBC Clumps Present /hpf (None Seen) Other Laboratory Tests 05/09/24 10:30 Brief Hx & Hospital Course: History of Present Illness Nani Hartley is a 63-year-old female with past medical history of hypertension, diabetes, and CVA with right-sided deficits who presents to the ED with neck and lower back pain x2 weeks. Patient's friend Andreas who is also the caregiver states that the patient has not been able to walk for about 2-3 weeks due to generalized weakness. Patient's friend also states that saw the neurologist yesterday and was advised to come in to the ED to get an evaluation for a surgical consult from spine sx due to the imaging results that the neurologist saw on the MRI. Upon examination patient has right upper arm is contracted and also unable to move right lower extremity. Per patient's friend Andreas patient is only able to reply with yes. She also reports that patient has been wheelchair-bound for the last couple of weeks. Patient's friend injury also reports malodorous urine along with poor appetite. Course of hospitalization: Patient was found to be positive for ESBL in the urine. Patient was placed on Invanz 1 g IV daily. Patient was seen by spinal surgery, undergoing cervical diskectomy. According to patient's family the patient has not ambulated in over a month. Patient will be transferred to senior care facility for continued IV antibiotic therapy referral 14 day course of IV Invanz as well as receiving physical therapy. Family is agreeable with discharge plan. All questions answered. Physical examination General: Alert and Oriented x3. No acute distress. Well-nourished. Eyes: EOMI. Anicteric. HENT: Moist mucous membranes. Lungs: Clear to auscultation bilaterally. No accessory muscle use. Cardiovascular: Regular rate and rhythm. No murmur. No JVD. Abdomen: Soft, non-tender and non-distended. No palpable masses. Extremities: No edema. Non-tender. Contracted right upper extremity Skin: No rashes or lesions. Warm. Neurologic: No focal neurological deficits. CN II-XII grossly intact, but not individually tested. Psychiatric: Cooperative. Appropriate mood and affect. Total time spent with patient discussing and formulating plan of care: 35 minutes. This medical document was created using an electronic medical record system with [employer] dictation system. Although this document has been carefully reviewed, there may still be some phonetic and typographical errors. These areas are purely typographical due to imperfections of the software programs, and do not reflect any compromise in the patient's medical care. Consults/Reason for consult Spinal surgery: Cervical stenosis Operations or Procedures 05/08/2024: Cervical diskectomy Condition at Discharge: Fair Final Diagnosis/Problems List Cervical stenosis ESBL in urine Secondary diagnosis: -complicated cystitis -history of CVA with right-sided weakness -primary hypertension -diabetes mellitus -hypomagnesemia Discharge Disposition: Detention Facility Discharge Instruct/Medications Diet: Consistent carbohydrate, Cardiac 2g Na,low cholest Activity: No Restrictions, As Tolerated Follow Up/Referral: Per accepting provider Medications: Review medication reconciliation form 36 Discharge Statement: "Patient was advised to return to the ER or call 911 if any headaches, dizziness, shortness of breath, chest pain, abdominal pain, bleeding, fevers, or worsening of medical condition. Patient was counseled about treatment plan, medications, possible side effects, patientverbalized understanding. All questions were answered to the best of my ability. This discharge took greater then 30 minutes in planning, reviewing documentation, counseling the patient, and discussing with other team members." ASSESSMENT ASSESSMENT Assessment Cervical stenosis ESBL in urine Date of Service: May 10, 2024 Billing Provider: HUMBERTO JARQUIN NP Common Visit Codes: 34528-UVX/OBS DISCH DAY >30min HUMBERTO JARQUIN NP May 10, 2024 17:03
[2024-05-11] VITALS (7 sets, daily range): BP systolic 130–155; BP diastolic 74–89; PULSE 70–81; RESP 18; TEMP 36.3; O2SAT 92–96
--- NOTE | 2024-05-11 09:51 | DVHPN2 ---
Subjective Patient denies any symptoms. Reviewed: Care Plan, H&P, Labs, Medications, Previous Orders Changes from previous H/P or p: No Changes General: Per HPI Gastrointestinal: Nausea, Vomiting Genitourinary: Other (Malodorous urine) Musculoskeletal: neck pain, back pain Objective Vitals Vital Signs Date Time Temp Pulse Resp B/P (MAP) Pulse Ox O2 Delivery O2 Flow Rate FiO2 05/11/24 08:40 97.5 72 18 135/78 (97) 92 97.5 05/10/24 20:00 Room Air* 0 21 Intake/Output Intake and Output 05/11/24 07:00 Intake Total 560 ml Output Total 1650 ml Balance -1090 ml Intake Oral 560 ml Output Urine Total 1650 ml General Appearance: Alert, Oriented X3, Cooperative, No acute distress HEENT: Atraumatic, PERRLA, EOMI, Mucous membr. moist/pink Neck: Supple Lungs: Clear to auscultation, Normal air movement Cardiovascular: Regular rate, Normal S1, Normal S2, No murmurs, Gallops, Rubs Abdomen: Normal bowel sounds, Soft, No tenderness Extremities: Other (Right upper extremity contraction) Neuro: Cranial nerves 3-12 NL Skin: Dry, Intact Psych/Mental Status: Mental status NL Medications Current Medications Medications Dose Ordered Sig/Kelechi Route Start Time Stop Time Status Last Admin Dose Admin Diagnostic Test (Pha) 1 strip ACHS 05/02/24 17:00 05/11/24 06:23 1 STRIP Insulin Human Regular ACHS SC 05/02/24 17:00 05/09/24 22:31 4 UNITS Dextrose 50 ml UD PRN IV 05/02/24 14:45 Acetaminophen 500 mg TID PO 05/02/24 22:00 05/11/24 06:18 500 MG Gabapentin 300 mg TID PO 05/02/24 22:00 05/11/24 06:18 300 MG Loratadine 10 mg DAILY PO 05/03/24 10:00 05/10/24 09:55 10 MG Risperidone 1 mg DAILY PO 05/03/24 10:00 05/10/24 09:55 1 MG Atorvastatin Calcium 80 mg HS PO 05/02/24 22:00 05/10/24 22:11 80 MG Cholecalciferol 2,000 unit DAILY PO 05/03/24 10:00 05/10/24 09:55 2,000 UNIT Patient Own Medication 1 cap BID PO 05/02/24 22:00 Ferrous Sulfate 325 mg DAILY PO 05/03/24 10:00 05/10/24 09:55 325 MG Metoprolol Succinate 25 mg DAILY PO 05/03/24 10:00 05/10/24 09:56 25 MG Patient Own Medication 1 tab DAILY PO 05/03/24 10:00 Patient Own Medication 1 tab DAILY PO 05/03/24 10:00 Ertapenem 1 gm/ Sodium Chloride 50 ml @ 100 mls/hr DAILY IV 05/05/24 11:45 05/10/24 10:03 100 MLS/HR Sucralfate 1 gm BID@0600,2200 GT 05/06/24 22:00 05/11/24 06:18 1 GM Hydroxyzine Pamoate 25 mg TID PO 05/07/24 14:00 05/11/24 06:18 25 MG Dextrose/Sodium Chloride 1,000 ml @ 100 mls/hr Q10H IV 05/08/24 09:45 05/10/24 11:45 100 MLS/HR Ondansetron HCl 4 mg Q4HP PRN IV 05/08/24 09:45 Acetaminophen 650 mg Q6HP PRN PO 05/08/24 09:45 Acetaminophen/ Hydrocodone Bitart 1 tab Q6HP PRN PO 05/08/24 09:45 05/08/24 16:24 1 TAB Morphine Sulfate 1 mg Q4HP PRN IV 05/08/24 09:45 Cyclobenzaprine HCl 10 mg TID PO 05/08/24 14:00 05/11/24 06:18 10 MG Docusate Sodium 100 mg BID PO 05/08/24 10:00 05/10/24 22:10 100 MG Nitroglycerin 0.4 mg Q5MINP PRN SL 05/08/24 09:45 Morphine Sulfate 2 mg Q30M PRN IV 05/08/24 09:45 Hydralazine HCl 5 mg [id number] PRN IV 05/08/24 10:45 05/08/24 10:53 2.5 MG Labetalol HCl 10 mg Q2HPRN PRN IV 05/08/24 12:30 05/08/24 12:58 10 MG Laboratory Results Laboratory Tests 05/09/24 10:30 Urinalysis Test 05/02/24 11:21 05/07/24 11:45 Urine WBC Clumps Present /hpf (None Seen) Urine Color Light-yellow (Yellow) Urine Clarity Clear (Clear) Urine pH 7.0 (5.0-9.0) Urine Specific [place] 1.022 (1.001-1.035) Urine Protein Trace (Negative) H Urine Ketones Negative (Negative) Urine Blood Negative /uL (Negative) Urine Nitrite Negative (Negative) Urine Bilirubin Negative (Negative) Urine Urobilinogen 3 mg/dL (Negative) H Urine Leukocyte Esterase 2+ /uL (Negative) Urine RBC 9 /hpf (0 - 4) Urine Microscopic WBC 24 /HPF (0-5) H Urine Squamous Epithelial Cells Few /hpf (<5) Urine Bacteria None seen /hpf (None Seen) Urine Glucose Normal mg/dL (Normal) Microbiology Microbiology Date/Time Source Procedure Growth Status 05/02/24 12:07 Blood Blood Culture - Final NO GROWTH AFTER 5 DAYS OF INCUBATION. Complete 05/02/24 11:21 Urine - [place] Urine Culture - Final Escherichia coli - ESBL Complete Labs and/or images reviewed: Labs reviewed by me, Image(s) reviewed by me Assessment/Plan Assessment/Plan Impression: -cervical stenosis -complicated cystitis -history of CVA with right-sided weakness -primary hypertension -diabetes mellitus -hypomagnesemia Plan: Events: Patient was discharge to assisted facility yesterday. Plans for transfer today. Next benign. Discussed with spinal surgery who was agree with transfer. -spinal surgery consultation: Recommendations reviewed -midline placement -continue IV Invanz -regular insulin sliding scale -antihypertensives -hold blood thinner Repeat labs in a.m. Total time spent with patient discussing and formulating plan of care: 35 minutes. This medical document was created using an electronic medical record system with [email or web address] dictation system. Although this document has been carefully reviewed, there may still be some phonetic and typographical errors. These areas are purely typographical due to imperfections of the software programs, and do not reflect any compromise in the patient's medical care. Plan discussed with: Patient, Other (RN) My Orders Orders - HUMBERTO JARQUIN NP Procedure Category Date Status Time Discharge DISCHARGE 05/10/24 Transmitted 16:57 Date of Service: May 11, 2024 Billing Provider: HUMBERTO JARQUIN NP Common Visit Codes: [id number] INP/OBS CARE(HIGH) HUMBERTO JARQUIN NP May 11, 2024 09:51
[2024-05-13 17:07] LABS: Vitamin D 25-Hydroxy 41 ng/mL (.); Vitamin D-2 25-Hydroxy <1.0 ng/mL (.); Vitamin D-3 25-Hydroxy 41 ng/mL (.)
== END 2024-05-11 15:20 | DRG 321 ==
LOC: ER 10:56 → OVERFLOW 14:10 → EAST 21:05 → CENTRAL 05-04 11:50 → TELE-CENTR 05-08 09:44
PROVIDERS: ADMIT Nurse Practitioner Acute Care; ATTEND Nurse Practitioner Acute Care
PROC: 05HA33Z Insertion of Infusion Device into Left Brachial Vein, Percutaneous Approach (ICD-10-PCS; 2024-05-07)
PROC: B54NZZA Ultrasonography of Left Upper Extremity Veins, Guidance (ICD-10-PCS; 2024-05-07)
PROC: 01N10ZZ Release Cervical Nerve, Open Approach (ICD-10-PCS; 2024-05-08)
PROC: 0RG10A0 Fusion of Cervical Vertebral Joint with Interbody Fusion Device, Anterior Approach, Anterior Column, Open Approach (ICD-10-PCS; principal; 2024-05-08 07:54)
DX: M48.02 Spinal stenosis, cervical region (principal); N17.0 Acute kidney failure with tubular necrosis; M50.01 Cervical disc disorder with myelopathy, high cervical region; E87.20 Acidosis, unspecified; I69.351 Hemiplegia and hemiparesis following cerebral infarction affecting right dominant side; N30.90 Cystitis, unspecified without hematuria; M50.11 Cervical disc disorder with radiculopathy, high cervical region; G89.18 Other acute postprocedural pain; E11.9 Type 2 diabetes mellitus without complications; I10 Essential (primary) hypertension; E78.5 Hyperlipidemia, unspecified; E83.42 Hypomagnesemia; F31.9 Bipolar disorder, unspecified; F20.9 Schizophrenia, unspecified; Z74.01 Bed confinement status; Z79.84 Long term (current) use of oral hypoglycemic drugs; Z99.3 Dependence on wheelchair; Z83.3 Family history of diabetes mellitus; Z79.82 Long term (current) use of aspirin; Z79.899 Other long term (current) drug therapy
CPT/HCPCS: 36415; 71045; 72040; 76000; 76705; 80048; 80053; 81001; 82306; 82962; 83036; 83605; 83735; 83880; 84484; 85025; 85610; 85652; 85730; 86141; 86850; 86900; 86901; 87040; 87086; 87088; 87186; 93005; 93306; 96365; 96375; 97162; 97163; G0378; J0131; J0330; J1100; J1335; J1815; J2405; J2704; J7042

== ENCOUNTER 2024-05-28 14:37 | Inpatient (IN) | payer MEDICAID ==
[~2024-05-28] VITALS: Ht 157.5 cm; Wt 63.7 kg
--- NOTE | 2024-05-28 14:48 | ECG ---
[facility] Test Date: 2024-05-28 Test Time: 14:43:43 Pat Name: DARLINE GREENE Department: ED Room: [address] [place] [address] Gender: F [place] Naturalist: gp : 1960 Requested By: EKATERINA WATTERS Order Number: [id number] Reading MD: David Frey Measurements Intervals Nancy Rate: 121 P: 3 TX: 113 QRS: 37 QRSD: 74 T: 222 QT: 272 QTc: 386 Interpretive Statements Sinus tachycardia Atrial premature complexes Nonspecific T abnormalities, diffuse leads Baseline wander in lead(s) II,III,aVR,aVF Electronically Signed On 05-28-2024 22:16:05 PDT by David Frey Please click the below link to view image of tracing.
--- NOTE | 2024-05-28 15:08 | ED.PDOC ---
Altered Mental Status HPI Comments 63Y F with PMHx DM, HTN, anemia, and CVA (rt sided deficits) presents to ED via EMS with chief complaint ALOC. Pt has not talked today and was last seen normal yesterday. Pt's baseline is A&Ox2 per EMS. Pt finished abx for UTI today. Pt was brought to ED from SNF. Current medications unknown. No other symptoms/history obtained. Chief Complaint: ALOC Time Seen by MD: 14:40 Primary Care Provider: UNKNOWN Reviewed Notes: Nurses Notes, Ware Tester Notes, Medications, Allergies Allergies: Coded Allergies: NO KNOWN ALLERGIES (Unverified , 10/15/23) Home Meds Active Scripts Amoxicillin & Pot Clavulanate (AUGMENTIN TABLET) 875 Mg Tb, 875 MG PO BID for 7 Days, #14 TAB Prov:ALLYSSA SANTOS RESIDENT 10/17/23 Reported Medications Solifenacin Succinate (Solifenacin Succinate) 10 Mg Tab, 1 TAB PO DAILY for 30 Days, #30 10/17/23 Hydrocodone-Acetaminophen (Hydrocodone Bitartrate/AC 10-325 mg) 1 Tab Tab, 1 TAB PO BID for 30 Days, #60 10/17/23 Acetaminophen (Acetaminophen Extra Stren) 500 Mg Tab, 1 TAB PO TID for 30 Days, #90 10/17/23 Bisacodyl (Bisacodyl Ec) 5 Mg Tab, 1 TAB PO DAILY for 30 Days, #30 10/17/23 Hydroxyzine Hcl (Hydroxyzine Hcl) 25 Mg Tab, 1 TAB PO QID for 30 Days, #120 10/17/23 Ferrous Sulfate (Iron) 325 Mg Tab, 325 MG PO DAILY, TAB 10/16/23 Risperidone (Risperidone) 1 Mg Tab, 1 TAB PO DAILY for 30 Days, #30 10/16/23 Mirtazapine (Mirtazapine Oral Disintegrating Tablet) 7.5 Mg Tab, 1 TAB PO DAILY for 30 Days, #30 10/16/23 Metoprolol Succinate (Metoprolol Succinate Er) 25 Mg Tab, 1 TAB PO DAILY 10/16/23 Aspirin (Aspirin Low Dose) 81 Mg Tab, 1 TAB PO DAILY 10/16/23 Docusate Sodium (Docusate Sodium) 100 Mg Cap, 1 CAP PO BID 10/16/23 Cholecalciferol (Vitamin D-3 Super Strengt) 2,000 Unit Tab, 1 TAB PO DAILY 10/16/23 Duloxetine HCl (Duloxetine HCl) 20 Mg Cap, 1 CAP PO BID 10/16/23 Metformin Hydrochloride (Metformin Hcl) 500 Mg Tab, 1 TAB PO BID 10/16/23 Atorvastatin Calcium (ATORVASTATIN CALCIUM) 80 Mg Tab, 1 TAB PO DAILY 10/16/23 Amlodipine Besylate (Amlodipine Besylate) 10 Mg Tab, 1 TAB PO DAILY 10/16/23 Loratadine (CLARITIN TABLET) 10 Mg Tb, 1 TAB PO DAILY 10/16/23 Losartan Potassium (Losartan Potassium) 100 Mg Tab, 1 TAB PO DAILY 10/16/23 Gabapentin (Gabapentin) 300 Mg Cap, 1 CAP PO TID 10/16/23 Information Source: Emergency Med Personnel Mode of Arrival: EMS Brought in by: EMS Severity: Moderate Timing: Hours Duration: Since onset Prehospital treatment: 12 Lead EKG Quality: Decreased Alertness, Change in Behavior Recent: Urinary Symptoms History of: CVA, Diabetes Associated Signs and Symptoms: Other Past Medical History PAST MEDICAL HISTORY: Anemia, CVA, Depression, DM, HTN Surgical History: Denies all surgeries FARM HELPER History: No Pertinent FARM HELPER History Family History Family History: Reviewed,noncontributory to illness, Unknown Social History Smoker: Non-Smoker Alcohol: Denies ETOH Use Drugs: Denies Drug Use Lives In: Assisted Care Unable to Obtain due to: Altered Mental Status Physical Exam General Appearance: No Apparent Distress, Normal HEENT: Normal ENT Inspection, Pharynx Normal, TMs Normal Neck: Full Range of Motion, Non-Tender, Normal, Normal Inspection Respiratory: Chest Non-Tender, Lungs Clear, No Accessory Muscle Use, No Respiratory Distress, Normal Breath Sounds Cardiovascular: No Edema, No JVD, No Murmur, No Gallop, Normal Peripheral Pulses, Regular Rate/Rhythm Breast Exam: Deferred Gastrointestinal: No Organomegaly, Non Tender, No Pulsatile Mass, Normal Bowel Sounds, Soft Genitalia: Deferred Pelvic: Deferred Rectal: Deferred Extremities: No calf tenderness, Normal capillary refill, Normal inspection, Normal range of motion, Non-tender, No pedal edema Musculoskeletal : Apperance: Normal Neurologic: Alert, electronic die maker II-XII nml as Tested, No Motor Deficits, Normal Affect, Normal Mood, No Sensory Deficits Cerebellar Function: NOT DONE Reflexes: NOT DONE Skin: Dry, Normal Color, Warm Lymphatic: No Adenopathy Was a procedure done? Was a procedure done?: No Differential Diagnosis (ALOC) Differential Diagnosis: Dehydration, Sepsis, Other (UTI) X-Ray, Labs, Meds, VS Vital Signs Date Time Temp Pulse Resp B/P (MAP) Pulse Ox O2 Delivery O2 Flow Rate FiO2 05/28/24 18:00 98.2 96 17 122/72 (89) 98 98.2 05/28/24 17:00 97.7 107 18 118/59 (78) 98 97.7 05/28/24 15:10 97.7 123 28 103/65 (78) 98 97.7 05/28/24 14:43 121 05/28/24 14:42 97.7 120 16 101/65 (77) 98 97.7 Lab Test 05/28/24 16:41 05/28/24 15:22 Range/Units Urine Color Yellow Yellow Urine Clarity Clear Clear Urine pH 6.0 5.0-9.0 Urine Specific [place] 1.031 1.001-1.035 Urine Protein 1+ H Negative Urine Ketones Trace Negative Urine Blood Negative Negative /uL Urine Nitrite Negative Negative Urine Bilirubin Negative Negative Urine Urobilinogen Normal Negative mg/dL Urine Leukocyte Esterase Negative Negative /uL Urine RBC 2 0 - 4 /hpf Urine Microscopic WBC 4 0-5 /HPF Urine Squamous Epithelial Cells Few <5 /hpf Urine Bacteria None seen None Seen /hpf Urine Mucus Few None Seen Urine Glucose Normal Normal mg/dL White Blood Count 34.4 *H 4.4-10.8 10^3/uL Red Blood Count 5.55 H 4.0-5.20 10^6/uL Hemoglobin 15.3 12.2-16.2 g/dL Hematocrit 45.8 36.0-46.0 % Mean Corpuscular Volume 82.6 80.0-100.0 fL Mean Corpuscular Hemoglobin 27.6 L 28.0-32.0 pg Mean Corpuscular Hemoglobin Concent 33.4 32.0-36.0 g/dL Red Cell Distribution Width 16.6 H 11.8-14.3 % Platelet Count 648 H 140-450 10^3/uL Mean Platelet Volume 7.4 6.9-10.8 fL Neutrophils (%) (Auto) 37.0-80.0 % Lymphocytes (%) (Auto) 10.0-50.0 % Monocytes (%) (Auto) 0.0-12.0 % Basophils (%) (Auto) 0.0-2.0 % Neutrophils # (Auto) 1.6-8.6 10 ^3/uL Lymphocytes # (Auto) 0.4-5.4 10 ^3/uL Monocytes # (Auto) 0-1.3 10 ^3/uL Differential Total Cells Counted 100.0 100 Neutrophils % (Manual) 68 37.0-80.0 Band Neutrophils % (Manual) 20 Lymphocytes % (Manual) 7 L 10.0-50.0 Monocytes % (Manual) 5 0-12 Eosinophils % (Manual) 0 0-7 Basophils % (Manual) 0 0.0-2.0 Metamyelocytes % (manual) 0 Myelocytes % (Manual) 0 Promyelocytes % (Manual) 0 Blast Cells % (Manual) 0 Reactive Lymphocytes 0 Platelet Estimate Increased Large Platelets Few Poikilocytosis (manual) Slight Anisocytosis (manual) Slight Sodium Level 138 136-145 mmol/L Potassium Level 4.9 3.5-5.1 mmol/L Chloride Level 104 98-107 mmol/L Carbon Dioxide Level 20 20-31 mmol/L Anion Gap 14 5-15 Blood Urea Nitrogen 47 H 9-23 mg/dL Creatinine 2.04 H 0.550-1.02 mg/dL Glomerular Filtration Rate Calc 27 >90 mL/min BUN/Creatinine Ratio 23.0 H 10.0-20.0 Serum Glucose 269 H 74-106 mg/dL Lactic Acid Level 3.1 *H 0.4-2.0 mmol/L Calcium Level 9.7 8.7-10.4 mg/dL Total Bilirubin 0.3 0.2-1.0 mg/dL Aspartate Amino Transferase (AST) 16 13-40 U/L Alanine Aminotransferase (ALT) 12 7-40 U/L Alkaline Phosphatase 109 46-116 U/L Troponin I High Sensitivity 6 </=34 ng/L Total Protein 6.4 5.7-8.2 g/dL Albumin 3.8 3.2-4.8 g/dL Current Medications Medications (Trade) Dose Ordered Sig/Kelechi Route Start Time Stop Time Status Last Admin Sodium Chloride 1,000 ml @ 1,000 mls/hr Q1H ONCE IV 05/28/24 15:15 05/28/24 16:14 DC 05/28/24 15:40 Ondansetron HCl (Zofran) 4 mg ONCE ONCE IV 05/28/24 15:15 05/28/24 15:16 DC 05/28/24 15:15 Cefepime HCl 50 ml @ 12.5 mls/hr ONCE ONCE IV 05/28/24 17:00 05/28/24 20:59 05/28/24 17:24 Vancomycin HCl 250 ml @ 250 mls/hr ONCE ONCE IV 05/28/24 17:00 05/28/24 17:59 DC 05/28/24 17:25 Sodium Chloride 2,000 ml @ 1,000 mls/hr Q2H ONCE IV 05/28/24 17:00 05/28/24 18:59 05/28/24 17:08 [place] [id number] Ph: [phone] DIAGNOSTIC IMAGING Diagnostic Imaging Report : [id number] Signed PATIENT: DARLINE GREENE ACCT: [id number] UNIT: [id number] : 1960 LOC: ER ROOM / BED: / AGE / SEX: 63 / F ADM STATUS: REG ER SERVICE [id number] ORDERING PHYSICIAN: EKATERINA WATTERS MD PROCEDURE(s): CXRP - CHEST PORTABLE REASON: ams ORDER NUMBER(s): [id number], ACCESSION NUMBER(s): [id number] EXAM: XR Chest, 1 View CLINICAL INDICATION: ams TECHNIQUE: Frontal view of the chest. COMPARISON: XY CHEST PORTABLE on DOS: 05/05/24, XY CHEST XRAY 1 VIEW on DOS: 05/02/24, XY CHEST XRAY 1 VIEW on DOS: 10/15/23 FINDINGS: LUNGS AND PLEURAL SPACES: Right suprahilar airspace disease, likely pneumonia. No pneumothorax. HEART: Unremarkable. No cardiomegaly. MEDIASTINUM: Unremarkable. Normal mediastinal contour. BONES/JOINTS: Unremarkable. No acute fracture. OTHER FINDINGS: . IMPRESSION: Right suprahilar airspace disease, likely pneumonia. ATED BY: MADY GALLO MD DICTATED DATE/TIME: 05/28/24 155 SIGNED BY: MADY GALLO MD SIGNED DATE/TIME: 05/28/24 155 CC: [place] [id number] [facility] [id number] Ph: [phone] DIAGNOSTIC IMAGING Diagnostic Imaging Report : [id number] Signed PATIENT: DARLINE GREENE ACCT: [id number] UNIT: [id number] : 1960 LOC: ER ROOM / BED: / AGE / SEX: 63 / F ADM STATUS: REG ER SERVICE [id number] ORDERING PHYSICIAN: EKATERINA WATTERS MD PROCEDURE(s): HWOCT - HEAD WITHOUT CONTRAST REASON: ams ORDER NUMBER(s): [id number], ACCESSION NUMBER(s): [id number] Procedure: CT HEAD WITHOUT CONTRAST Study Date and Requested Time: 05/28/2024 03:25 PM History: ams Comparison: CT HEAD WITHOUT CONTRAST on DOS: 10/15/23 Dose: CTDI: 54.5 mGy DLP: 965.04 mGycm Technique: Multiplanar images obtained through the brain without intravenous contrast. Findings: Jtym-gh-rrmefdem diffuse brain atrophy. Moderate to severe chronic small vessel ischemic changes. Left araujo radiata and left basal ganglia chronic lacunar infarcts. No hemorrhages, masses, mass effect, midline shift, herniation or cytotoxic edema following a large vascular territory. No intra-axial or extra-axial fluid collections. No evidence of hydrocephalus. The basal cisterns are patent. The pituitary gland, sella and parasellar regions are unremarkable. The cerebellar tonsils are in normal position. The cerebellum is unremarkable. The orbits and globes are unremarkable. The paranasal sinuses and mastoids are clear. There are no worrisome calvarial lesions. 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 Scattered punctate hyperdensities within the scalp. Impression: No evidence of acute intracranial abnormality. If symptoms persist, MRI should be considered for further evaluation. ATED BY: ROSSY SANDOVAL DO DICTATED DATE/TIME: 05/28/241553 SIGNED BY: ROSSY SANDOVAL DO SIGNED DATE/TIME: 05/28/241553 CC: Time of 1ST Reevaluation: 15:10 Reevaluation 1ST: Unchanged Time of 2ND Reevaluation: 18:45 (Patient's hemodynamics improved after receiving fluids.) Reevaluation 2ND: Improved Patient Education/Counseling: Diagnosis, Treatment Family Education/Counseling: No Family Present Departure 1 Departure Time of Disposition: 18:43 (Patient presenting with metabolic encephalopathy likely secondary to sepsis. We will empirically cover patient with antibiotics IV fluids and admit patient for further workup and expert consultation.) Impression: Primary Impression: Sepsis Qualified Codes: A41.9 - Sepsis, unspecified organism; R65.21 - Severe sepsis with septic shock; G93.41 - Metabolic encephalopathy Additional Impressions: Metabolic encephalopathy Pneumonia Qualified Codes: J18.9 - Pneumonia, unspecified organism Disposition: ADMITTED INPATIENT Admit to: Tele Condition: Guarded Critical Care Note Critical Care Time?: Yes Critical care comment: Sepsis Authorized and Performed by: Ekaterina Watters MD Total critical care time: Approximately 47 minutes Due to a high probability of clinically significant, life threatening deterioration, the patient required my highest level of preparedness to intervene emergently and I personally spent this critical care time directly and personally managing the patient. This critical care time included obtaining a history; examining the patient; pulse oximetry; ordering and review of studies; arranging urgent treatment with development of a management plan; evaluation of patient's response to treatment; frequent reassessment; and, discussions with other providers. This critical care time was performed to assess and manage the high probability of imminent, life-threatening deterioration that could result in multi-organ failure. It was exclusive of separately billable procedures and treating other patients and teaching time. Please see my other sections and the rest of the note for further information on patient assessment and treatment. Stability Stability form required: No Heart Score Heart Score: Heart Score Response (Comments) Value History N/A 0 EKG N/A 0 Age N/A 0 Risk Factors N/A 0 Troponin N/A 0 Total 0 I personally scribed for EKATERINA WATTERS MD ([facility]) on 05/28/24 at 15:08. Electronically submitted by Heather Gifford ([facility]). I personally scribed for EKATERINA WATTERS MD ([facility]) on 05/28/24 at 15:09. Electronically submitted by Heather Gifford ([facility]). I personally scribed for EKATERINA WATTERS MD ([email or web address]) on 05/28/24 at 15:56. Electronically submitted by Heather Gifford ([facility]). I personally scribed for EKATERINA WATTERS MD ([email or web address]) on 05/28/24 at 17:00. Electronically submitted by Heather Gifford ([facility]). EKATERINA WATTERS MD May 28, 2024 15:08
[2024-05-28] MEDS: ONDANSETRON HCL 4 MG/2 ML VIAL IV ONE (15:15)
[2024-05-28 15:30] VITALS: PULSE 110; RESP 24; O2SAT 98
[2024-05-28] MEDS: SODIUM CHLORIDE 0.9% 1,000 ML IV ONE ×2 (15:40→23:56)
--- NOTE | 2024-05-28 15:54 | DVH ---
EXAM: XR Chest, 1 View CLINICAL INDICATION: ams TECHNIQUE: Frontal view of the chest. COMPARISON: XY CHEST PORTABLE on DOS: 05/05/24, XY CHEST XRAY 1 VIEW on DOS: 05/02/24, XY CHEST XRAY 1 VIEW on DOS: 10/15/23 FINDINGS: LUNGS AND PLEURAL SPACES: Right suprahilar airspace disease, likely pneumonia. No pneumothorax. HEART: Unremarkable. No cardiomegaly. MEDIASTINUM: Unremarkable. Normal mediastinal contour. BONES/JOINTS: Unremarkable. No acute fracture. OTHER FINDINGS: . IMPRESSION: Right suprahilar airspace disease, likely pneumonia.
--- NOTE | 2024-05-28 15:56 | DVH ---
Procedure: CT HEAD WITHOUT CONTRAST Study Date and Requested Time: 05/28/2024 03:25 PM History: ams Comparison: CT HEAD WITHOUT CONTRAST on DOS: 10/15/23 Dose: CTDI: 54.5 mGy DLP: 965.04 mGycm Technique: Multiplanar images obtained through the brain without intravenous contrast. Findings: Vvbe-cz-csoznijs diffuse brain atrophy. Moderate to severe chronic small vessel ischemic changes. Lef t araujo radiata and left basal ganglia chronic lacunar infarcts. No hemorrhages, masses, mass effect, midline shift, herniation or cytotoxic edema following a large v ascular territory. No intra-axial or extra-axial fluid collections. No evidence of hydrocephalus. The basal cisterns are patent. The pituitary gland, sella and parasellar regions are unremarkable. The cerebellar tonsils are in nor mal position. The cerebellum is unremarkable. The orbits and globes are unremarkable. The paranasal sinuses and mastoids are clear. There are no wo rrisome calvarial lesions. 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 Scattered punctate hyp erdensities within the scalp. Impression: No evidence of acute intracranial abnormality. If symptoms persist, MRI should be considered for furt her evaluation.
[2024-05-28 16:15] LABS: Alanine Aminotransferase 12 U/L (7-40); Albumin 3.8 g/dL (3.2-4.8); Alkaline Phosphatase 109 U/L (46-116); Anion Gap 14 (5-15); Aspartate Aminotransferase 16 U/L (13-40); Bilirubin, Total 0.3 mg/dL (0.2-1.0); Calcium 9.7 mg/dL (8.7-10.4); Carbon Dioxide 20 mmol/L (20-31); Chloride 104 mmol/L (98-107); Potassium 4.9 mmol/L (3.5-5.1); Sodium 138 mmol/L (136-145); Total Protein 6.4 g/dL (5.7-8.2)
[2024-05-28 16:18] LABS: Blood Urea Nitrogen 47 mg/dL (9-23); Glucose 269 mg/dL (74-106)
[2024-05-28 16:21] LABS: Lactic Acid w/Reflex 3.1 mmol/L (0.4-2.0)
[2024-05-28 16:25] LABS: Hemoglobin 15.3 g/dL (12.2-16.2)
[2024-05-28 16:27] LABS: Hematocrit 45.8 % (36.0-46.0); Mean Corpuscular Hemoglobin 27.6 pg (28.0-32.0); Mean Corpuscular Hgb Conc. 33.4 g/dL (32.0-36.0); Mean Corpuscular Volume 82.6 fL (80.0-100.0); Platelet Count (auto) 648 10^3/uL (140-450); Red Blood Cells 5.55 10^6/uL (4.0-5.20); Red Cell Distribution Width 16.6 % (11.8-14.3)
[2024-05-28 16:39] LABS: Basophils % (manual) 0 (0.0-2.0); Blast Cells 0; Eosinophils % (manual) 0 (0-7); Metamyelocytes % 0; Myelocytes % 0; Promyelocytes % 0; Reactive Lymphocytes 0; White Blood Cell 34.4 10^3/uL (4.4-10.8)
[2024-05-28 16:47] LABS: Urine Bacteria None Seen /hpf (None Seen)
[2024-05-28 16:59] LABS: Urine Blood Negative /uL (Negative); Urine Clarity Clear (Clear); Urine Color Yellow (Yellow); Urine Mucus FEW (None Seen); Urine Protein, UAD 1+ (Negative); Urine Specific Gravity 1.031 (1.001-1.035); Urine Squamous Epithelial Cell FEW /hpf (<5); Urine Urobilinogen Normal (Negative); Urine WBC 4 /HPF (0-5)
[2024-05-28 17:07] LABS: Anisocytosis Slight; Band Neutrophils % (manual) 20; Lymphocytes % (manual) 7 (10.0-50.0); Monocytes % (manual) 5 (0-12); Platelet Estimate Increased
[2024-05-28 17:08] LABS: Large Platelets FEW
[2024-05-28] MEDS: SODIUM CHLORIDE 0.9% 2,000 ML IV ONE (17:08)
[2024-05-28] MEDS: CEFEPIME 2GM/50ML NS 50 ML IV ONE (17:24)
[2024-05-28] MEDS: VANCOMYCIN 1GM/200ML PM 250 ML IV ONE (17:25)
[2024-05-28] MEDS: AZITHROMYCIN 500MG/ 250ML 250 ML IV ONE (19:09)
[2024-05-28 20:00] VITALS: PULSE 120; RESP 23; O2SAT 98
[2024-05-28] MEDS ORDERED: NITROGLYCERIN 0.4 MG SL TAB SL PRN (20:00)
[2024-05-28] MEDS ORDERED: ACETAMINOPHEN 325 MG TAB PO PRN (20:00)
[2024-05-28] MEDS ORDERED: DEXTROSE (50%) 50ML SYRG IV PRN (20:00)
[2024-05-28] MEDS ORDERED: ONDANSETRON HCL 4 MG/2 ML VIAL IV PRN (20:00)
[2024-05-28] MEDS ORDERED: MORPHINE SULFATE INJ 2 MG/ml SYRG IV PRN (20:00)
[2024-05-28] MEDS ORDERED: VANCOMYCIN PER PHARMACY 0 MG IV SCH (20:00)
[2024-05-28] MEDS: VANCOMYCIN 1.25GM/250ML 250 ML IV ONE (20:15)
[2024-05-28 22:53] VITALS: PULSE 128; RESP 18; O2SAT 98
[2024-05-28] MEDS: ATORVASTATIN 20 MG TAB PO SCH (23:29)
[2024-05-28] MEDS: PIPERACILLIN-TAZOB 3.375GM 100 ML IV SCH (23:29)
[2024-05-28] MEDS: ACCU-CHEK COMFORT CURVE STRIP VI SCH (23:55)
[2024-05-29] VITALS (88 sets, daily range): BP systolic 62–149; BP diastolic 19–120; PULSE 111–177; RESP 16–54; TEMP 97.7–99.8; O2SAT 91–100
[2024-05-29] MEDS: InsuLIN REG 1unit/0.01ml Soln (100units/ml) SC SCH (00:15)
[2024-05-29] MEDS: SODIUM CHLORIDE 0.9% 500 ML IV ONE (02:40)
[2024-05-29 03:22] LABS: Hematocrit 41.9 % (36.0-46.0); Hemoglobin 13.4 g/dL (12.2-16.2); Mean Corpuscular Hemoglobin 27.1 pg (28.0-32.0); Mean Corpuscular Hgb Conc. 32.1 g/dL (32.0-36.0); Mean Corpuscular Volume 84.5 fL (80.0-100.0); Platelet Count (auto) 498 10^3/uL (140-450); Red Blood Cells 4.96 10^6/uL (4.0-5.20); Red Cell Distribution Width 17.1 % (11.8-14.3)
[2024-05-29 03:24] LABS: White Blood Cell 35.3 10^3/uL (4.4-10.8)
[2024-05-29 03:25] LABS: Basophils % (manual) 0 (0.0-2.0); Blast Cells 0; Eosinophils % (manual) 0 (0-7); Metamyelocytes % 0; Promyelocytes % 0; Reactive Lymphocytes 0
[2024-05-29] MEDS: PHENYLEPHRINE IV 250 ML IV SCH (03:36)
[2024-05-29 03:37] LABS: Alanine Aminotransferase < 9 U/L (7-40); Alkaline Phosphatase 94 U/L (46-116); Anion Gap 11 (5-15); Aspartate Aminotransferase 18 U/L (13-40); BUN/Creatinine Ratio 17.8 (10.0-20.0); Blood Urea Nitrogen 36 mg/dL (9-23); Carbon Dioxide 16 mmol/L (20-31); Chloride 113 mmol/L (98-107); Glucose 181 mg/dL (74-106); Potassium 4.1 mmol/L (3.5-5.1); Sodium 140 mmol/L (136-145)
[2024-05-29 03:38] LABS: Albumin 2.8 g/dL (3.2-4.8); Bilirubin, Total 0.3 mg/dL (0.2-1.0); Calcium 7.9 mg/dL (8.7-10.4); Lactic Acid w/Reflex 2.6 mmol/L (0.4-2.0); Total Protein 5.1 g/dL (5.7-8.2)
[2024-05-29 03:50] LABS: Band Neutrophils % (manual) 5; Lymphocytes % (manual) 8 (10.0-50.0); Monocytes % (manual) 1 (0-12); Myelocytes % 1
[2024-05-29 03:52] LABS: Large Platelets FEW
[2024-05-29 03:53] LABS: Platelet Estimate Increased
[2024-05-29] MEDS: NOREPINEPHRINE 8 MG/250ML KIT 250 ML IV SCH (04:00)
--- NOTE | 2024-05-29 04:02 | RESUS ---
CODE ASSIST ASSESSSMENT Initial Information Code Assist Date: May 29, 2024 Code Assist Time: 02:00 Location of Arrest: Central Room # 203 Provider Name BUCKY Time Notified: 02:00 Time PMD returned call: 02:00 Crash Cart Opened and Supplies: Yes Comment: ONLY CARDIAC PADS TAKEN Situation Staff concerned/worried, speci: HR >130 Situation comment: Rapid response was Called due to increase Heart rate and Hypotensive. Patient transfer to ICU bed 265. Report given to Angela GARCIA Background Background: 63Y F with PMHx DM, HTN, anemia, and CVA (rt sided deficits) presents to ED via EMS with chief complaint ALOC. Pt has not talked today and was last seen normal yesterday. Pt's baseline is A&Ox2 per EMS. Pt finished abx for UTI today. Pt was brought to ED from SNF. Pt was admitted to telemetry, became hypotensive while on the floor upgrated to icu, bed given. While been transferef pts hr went to 200. Upon arrival to code assist, pts hr 120 bp 84/49. Pt moved to icu bed. Assessment Temperature (Fahrenheit): 99.2 Blood Pressure Systolic: 80 Blood Pressure Diastolic: 20 Respiratory Rate: 30 O2 Sat by Pulse Oximetry: 94 Outcome Outcome: Transfer to ICU Team Members Team Members BUCKY MARKET RESEARCH INTERVIEWER, ELAINE RN, MEL WAFER POLISHER, EDMOND WAFER POLISHER, CLARISSA GARCIA ICU, ELAINE NGUYEN May 29, 2024 04:02
[2024-05-29] MEDS: AMIODARONE BOLUS KIT 100 ML IV ONE (04:16)
--- NOTE | 2024-05-29 04:20 | DVHHP2 ---
History of Present Illness Reason for Visit: Altered mental status History of Present Illness 63-year-old female presents for evaluation of altered mental status. Patient was CVA with right-sided deficits presents for after being noted to be progressively more altered at the SN[facility] where she resides. It is unknown what is the patient's baseline. Currently she is lethargic and does not follow commands. Past Medical History Diabetes mellitus, hypertension, CVA Past Surgical History Unknown Family History Unknown Lives: Custodial Review of Systems Review of Systems Unable to complete review of systems due to the patient's altered mental status. Allergies: Coded Allergies: NO KNOWN ALLERGIES (Unverified , 10/15/23) Medications Current Medications Medications Dose Ordered Sig/Kelechi Route Start Time Stop Time Status Last Admin Dose Admin Aspirin 81 mg DAILY PO 05/29/24 10:00 Atorvastatin Calcium 80 mg HS PO 05/28/24 22:00 05/28/24 23:29 80 MG Piperacillin Sod/ Tazobactam Sod 100 ml @ 25 mls/hr Q8HR IV 05/28/24 22:00 05/28/24 23:29 25 MLS/HR Vancomycin HCl 0 ml @ 0 mls/hr UD IV 05/28/24 20:00 Diagnostic Test (Pha) 1 strip Q6HR 05/29/24 00:00 05/28/24 23:55 1 STRIP Insulin Human Regular Q6HR SC 05/29/24 00:00 05/29/24 00:15 6 UNITS Dextrose 50 ml UD PRN IV 05/28/24 20:00 Ondansetron HCl 4 mg Q4HP PRN IV 05/28/24 20:00 Acetaminophen 650 mg Q6HP PRN PO 05/28/24 20:00 Nitroglycerin 0.4 mg Q5MINP PRN SL 05/28/24 20:00 Morphine Sulfate 2 mg Q30M PRN IV 05/28/24 20:00 Phenylephrine HCl 250 ml @ 30 mls/hr Q8H20M IV 05/29/24 02:00 05/29/24 03:36 30 MLS/HR Norepinephrine Bitartrate 250 ml @ 3.75 mls/hr Q24H IV 05/29/24 04:00 Exam Vital Signs Vital Signs Date Time Temp Pulse Resp B/P (MAP) Pulse Ox O2 Delivery O2 Flow Rate FiO2 05/29/24 04:00 88/54 05/29/24 03:45 128 26 05/29/24 02:45 94 05/29/24 02:00 99.8 99.8 05/29/24 02:00 Nasal Cannula* 3 32 Exam Gen: 63-year-old female in moderate distress Skin: Warm, dry, normal color and texture, no rash. HEENT: Normocephalic atraumatic, mucous membranes moist and pink. Neck: Cervical and supraclavicular nodes normal without enlargement, trachea is midline, thyroid gland is normal without masses. Pulmonary: Diminished breath sounds bilaterally Cardiac: Sinus tachycardia Abdomen: Soft, nontender, nondistended, bowel sounds present all 4 quadrants, no guarding, no rigidity, no organomegaly. Extremities: No cyanosis, clubbing, no edema Neuro: Right-sided deficits with contractures Labs/Xrays ORDERING PHYSICIAN: EKATERINA WATTERS MD PROCEDURE(s): CXRP - CHEST PORTABLE REASON: [facility] ORDER NUMBER(s): [id number], ACCESSION NUMBER(s): [id number] EXAM: XR Chest, 1 View CLINICAL INDICATION: ams TECHNIQUE: Frontal view of the chest. COMPARISON: XY CHEST PORTABLE on DOS: 05/05/24, XY CHEST XRAY 1 VIEW on DOS: 05/02/24, XY CHEST XRAY 1 VIEW on DOS: 10/15/23 FINDINGS: LUNGS AND PLEURAL SPACES: Right suprahilar airspace disease, likely pneumonia. No pneumothorax. HEART: Unremarkable. No cardiomegaly. MEDIASTINUM: Unremarkable. Normal mediastinal contour. BONES/JOINTS: Unremarkable. No acute fracture. OTHER FINDINGS: . IMPRESSION: Right suprahilar airspace disease, likely pneumonia. RING PHYSICIAN: EKATERINA WATTERS MD PROCEDURE(s): HWOCT - HEAD WITHOUT CONTRAST REASON: [facility] ORDER NUMBER(s): [id number], ACCESSION NUMBER(s): [id number] Procedure: CT HEAD WITHOUT CONTRAST Study Date and Requested Time: 05/28/2024 03:25 PM History: ams Comparison: CT HEAD WITHOUT CONTRAST on DOS: 10/15/23 Dose: CTDI: 54.5 mGy DLP: 965.04 mGycm Technique: Multiplanar images obtained through the brain without intravenous contrast. Findings: Sioi-lu-blnronlx diffuse brain atrophy. Moderate to severe chronic small vessel ischemic changes. Left araujo radiata and left basal ganglia chronic lacunar infarcts. No hemorrhages, masses, mass effect, midline shift, herniation or cytotoxic edema following a large vascular territory. No intra-axial or extra-axial fluid collections. No evidence of hydrocephalus. The basal cisterns are patent. The pituitary gland, sella and parasellar regions are unremarkable. The cerebellar tonsils are in normal position. The cerebellum is unremarkable. The orbits and globes are unremarkable. The paranasal sinuses and mastoids are clear. There are no worrisome calvarial lesions. 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 Scattered punctate hyperdensities within the scalp. Impression: No evidence of acute intracranial abnormality. If symptoms persist, MRI should be considered for further evaluation. Labs Test 05/29/24 03:02 05/28/24 23:53 05/28/24 18:31 05/28/24 16:41 Range/Units White Blood Count 35.3 *H 4.4-10.8 10^3/uL Red Blood Count 4.96 4.0-5.20 10^6/uL Hemoglobin 13.4 12.2-16.2 g/dL Hematocrit 41.9 36.0-46.0 % Mean Corpuscular Volume 84.5 80.0-100.0 fL Mean Corpuscular Hemoglobin 27.1 L 28.0-32.0 pg Mean Corpuscular Hemoglobin Concent 32.1 32.0-36.0 g/dL Red Cell Distribution Width 17.1 H 11.8-14.3 % Platelet Count 498 H 140-450 10^3/uL Mean Platelet Volume 7.2 6.9-10.8 fL Neutrophils (%) (Auto) 37.0-80.0 % Lymphocytes (%) (Auto) 10.0-50.0 % Monocytes (%) (Auto) 0.0-12.0 % Basophils (%) (Auto) 0.0-2.0 % Neutrophils # (Auto) 1.6-8.6 10 ^3/uL Lymphocytes # (Auto) 0.4-5.4 10 ^3/uL Monocytes # (Auto) 0-1.3 10 ^3/uL Differential Total Cells Counted 100.0 100 Neutrophils % (Manual) 85 H 37.0-80.0 Band Neutrophils % (Manual) 5 Lymphocytes % (Manual) 8 L 10.0-50.0 Monocytes % (Manual) 1 0-12 Eosinophils % (Manual) 0 0-7 Basophils % (Manual) 0 0.0-2.0 Metamyelocytes % (manual) 0 Myelocytes % (Manual) 1 Promyelocytes % (Manual) 0 Blast Cells % (Manual) 0 Nucleated Red Blood Cells 2.0 % Reactive Lymphocytes 0 Platelet Estimate Increased Large Platelets Few Poikilocytosis (manual) Slight Anisocytosis (manual) Sodium Level 140 136-145 mmol/L Potassium Level 4.1 3.5-5.1 mmol/L Chloride Level 113 H 98-107 mmol/L Carbon Dioxide Level 16 L 20-31 mmol/L Anion Gap 11 5-15 Blood Urea Nitrogen 36 #H 9-23 mg/dL Creatinine 2.02 H 0.550-1.02 mg/dL Glomerular Filtration Rate Calc 27 >90 mL/min BUN/Creatinine Ratio 17.8 10.0-20.0 Serum Glucose 181 H 74-106 mg/dL Lactic Acid Level 2.6 *H 0.4-2.0 mmol/L Calcium Level 7.9 L 8.7-10.4 mg/dL Total Bilirubin 0.3 0.2-1.0 mg/dL Aspartate Amino Transferase (AST) 18 13-40 U/L Alanine Aminotransferase (ALT) < 9 7-40 U/L Alkaline Phosphatase 94 46-116 U/L Total Protein 5.1 L 5.7-8.2 g/dL Albumin 2.8 L 3.2-4.8 g/dL Random Vancomycin Level 11.9 H 5-10 ug/mL POC Glucose 254 H 70-106 mg/dl Troponin I High Sensitivity 4 </=34 ng/L Urine Color Yellow Yellow Urine Clarity Clear Clear Urine pH 6.0 5.0-9.0 Urine Specific [place] 1.031 1.001-1.035 Urine Protein 1+ H Negative Urine Ketones Trace Negative Urine Blood Negative Negative /uL Urine Nitrite Negative Negative Urine Bilirubin Negative Negative Urine Urobilinogen Normal Negative mg/dL Urine Leukocyte Esterase Negative Negative /uL Urine RBC 2 0 - 4 /hpf Urine Microscopic WBC 4 0-5 /HPF Urine Squamous Epithelial Cells Few <5 /hpf Urine Bacteria None seen None Seen /hpf Urine Mucus Few None Seen Urine Glucose Normal Normal mg/dL Assessment/Plan Assessment/Plan Assessment Septic shock Metabolic encephalopathy Community-acquired pneumonia Urinary tract infection Diabetes mellitus CVA with right-sided deficits Plan Admit the patient to ICU to the hospitalist Zosyn/vancomycin Maintenance IV fluids Continue treatment per orders Total critical care time excluding procedures performed is 50 minutes. Plan discussed with: Other My Orders Orders - SHANDA LAWLER Procedure Category Date Status Time Aspirin Tablet PHA 05/29/24 In Process 10:00 Atorvastatin (Lipitor) PHA 05/28/24 In Process 22:00 Piperacillin-Tazob PHA 05/28/24 In Process 3.375gm (Zosyn 3.375g 22:00 Vancomycin Per PHA 05/28/24 In Process Pharmacy 20:00 Glucose Blood PHA 05/29/24 In Process (Accu-Chek Comfort 00:00 Insulin R (Human) PHA 05/29/24 In Process (Insulin R) 00:00 Dextrose 50% Syringe PHA 05/28/24 In Process 20:00 Admit ADMIT 05/28/24 Transmitted 19:49 Ondansetron Hcl PHA 05/28/24 In Process (Zofran) 20:00 Cardiac DIET 05/29/24 Transmitted Diet-2gna,Lofat,Lochol Breakfast Condition: Fair KENNEY 05/28/24 In Process 19:49 Acetaminophen Tablet PHA 05/28/24 In Process (Tylenol Tablet) 20:00 Bedrest With Bathroom KENNEY 05/28/24 In Process Privileg 19:49 Nitroglycerin PHA 05/28/24 In Process Sublingual (Ntrostat 20:00 Morphine Sulfate PHA 05/28/24 In Process Injection 20:00 Stat Ekg For Chest KENNEY 05/28/24 In Process Pain 19:49 Notify Md Of Changes KENNEY 05/28/24 In Process From Base 19:49 Inspector Aligning For KENNEY 05/28/24 In Process 24 Hours 19:49 Emergency Dysrhythmia KENNEY 05/28/24 In Process Protocol 19:49 Rhythm Strips Once KENNEY 05/28/24 In Process Every Shift 19:49 Oxygen By Nasal RT 05/28/24 Transmitted Cannula 19:49 Mrsa Screen GORDON 4/2/25 In Process 23:06 Transfer Orders XFER 05/29/24 Transmitted 01:46 Phenylephrine Iv PHA 05/29/24 In Process (Phenylephrine/Ns) 02:00 Urine Bacterial GORDON 05/29/24 Logged Culture 02:25 Amiodarone PHA 05/29/24 In Process 360mg/200ml Premix 04:15 Amiodarone PHA 05/29/24 In Process 360mg/200ml Premix 10:15 Norepinephrine 8 PHA 05/29/24 In Process Mg/250ml Kit 04:00 Date of Service: May 28, 2024 Billing Provider: SHANDA LAWLER Common Visit Codes: [id number] CARE 30-74 MIN SHANDA LAWLER May 29, 2024 04:20
[2024-05-29] MEDS: AMIODARONE 360mg/200mL PREMIX 200 ML IV ONE (04:25)
[2024-05-29] MEDS: SODIUM CHLORIDE 0.9% 1,000 ML IV ONE (04:27)
[2024-05-29] MEDS: ALBUMIN 5% 250 ML IV ONE (05:04)
--- NOTE | 2024-05-29 07:43 | ECG ---
[facility] Test Date: 2024-05-29 Test Time: 02:24:22 Pat Name: DARLINE GREENE Department: Respiratoy Room: 0265 A Gender: F Metal [employer] Tuner: JORGE : 1960 Requested By: SHANDA LAWLER Order Number: [id number] Reading MD: Daivd Frey Measurements Intervals Starlight Rate: 125 P: 15 GA: 121 QRS: 10 QRSD: 50 T: 210 QT: 336 QTc: 485 Interpretive Statements Sinus tachycardia Low voltage, precordial leads Lateral ischemia Electronically Signed On 05-30-2024 18:29:45 PDT by David Frey Please click the below link to view image of tracing.
[2024-05-29] MEDS: ASPirin 81 mg TAB PO SCH (09:31)
[2024-05-29] MEDS: AMIODARONE 360mg/200mL PREMIX 200 ML IV SCH (09:48)
[2024-05-29] MEDS: SODIUM CHLORIDE 0.9% 1,000 ML IV SCH (12:00)
--- NOTE | 2024-05-29 12:26 | DVHPN2 ---
Subjective Patient was unresponsive/encephalopathic Reviewed: Care Plan, H&P, Labs, Medications, Previous Orders Changes from previous H/P or p: No Changes General: Per HPI Objective Vitals Vital Signs Date Time Temp Pulse Resp B/P (MAP) Pulse Ox O2 Delivery O2 Flow Rate FiO2 05/29/24 11:30 103/65 05/29/24 10:31 115 23 95 05/29/24 08:15 98.1 98.1 05/29/24 08:00 Nasal Cannula* 3 32 Intake/Output Intake and Output 05/29/24 07:00 Intake Total 1399.16 ml Output Total 220 ml Balance 1179.16 ml Intake Oral 0 ml IV Total 1399.16 ml Output Urine Total 220 ml General Appearance: moderate distress, Other (Encephalopathic) HEENT: Atraumatic, PERRLA Cardiovascular: Normal S1, Normal S2 Musculoskeletal: Normal sensory function, Normal motor function Neuro: Other (Unable to assess) Skin: Dry, Intact Psych/Mental Status: Other (Unable to assess) Medications Current Medications Medications Dose Ordered Sig/Kelechi Route Start Time Stop Time Status Last Admin Dose Admin Aspirin 81 mg DAILY PO 05/29/24 10:00 Atorvastatin Calcium 80 mg HS PO 05/28/24 22:00 05/28/24 23:29 80 MG Piperacillin Sod/ Tazobactam Sod 100 ml @ 25 mls/hr Q8HR IV 05/28/24 22:00 05/29/24 06:25 25 MLS/HR Diagnostic Test (Pha) 1 strip Q6HR 05/29/24 00:00 05/29/24 06:25 1 STRIP Insulin Human Regular Q6HR SC 05/29/24 00:00 05/29/24 06:25 2 UNITS Dextrose 50 ml UD PRN IV 05/28/24 20:00 Ondansetron HCl 4 mg Q4HP PRN IV 05/28/24 20:00 Acetaminophen 650 mg Q6HP PRN PO 05/28/24 20:00 Nitroglycerin 0.4 mg Q5MINP PRN SL 05/28/24 20:00 Morphine Sulfate 2 mg Q30M PRN IV 05/28/24 20:00 Phenylephrine HCl 250 ml @ 30 mls/hr Q8H20M IV 05/29/24 02:00 05/29/24 11:30 86.25 MLS/HR Norepinephrine Bitartrate 250 ml @ 3.75 mls/hr Q24H IV 05/29/24 04:00 Linezolid 300 ml @ 150 mls/hr Q12HR IV 05/29/24 22:00 UNV Sodium Chloride 1,000 ml @ 125 mls/hr Q8H IV 05/29/24 12:00 UNV Laboratory Results Laboratory Tests 05/29/24 03:02 Chemistry Test 05/28/24 15:22 05/29/24 03:02 Albumin 3.8 g/dL (3.2-4.8) 2.8 g/dL (3.2-4.8) L Calcium Level 9.7 mg/dL (8.7-10.4) 7.9 mg/dL (8.7-10.4) L Total Protein 6.4 g/dL (5.7-8.2) 5.1 g/dL (5.7-8.2) L LFT Test 05/28/24 15:22 05/29/24 03:02 Alanine Aminotransferase (ALT) 12 U/L (7-40) < 9 U/L (7-40) Alkaline Phosphatase 109 U/L (46-116) 94 U/L (46-116) Aspartate Amino Transferase (AST) 16 U/L (13-40) 18 U/L (13-40) Total Bilirubin 0.3 mg/dL (0.2-1.0) 0.3 mg/dL (0.2-1.0) Urinalysis Test 05/28/24 16:41 Urine Color Yellow (Yellow) Urine Clarity Clear (Clear) Urine pH 6.0 (5.0-9.0) Urine Specific [place] 1.031 (1.001-1.035) Urine Protein 1+ (Negative) H Urine Ketones Trace (Negative) Urine Blood Negative /uL (Negative) Urine Nitrite Negative (Negative) Urine Bilirubin Negative (Negative) Urine Urobilinogen Normal mg/dL (Negative) Urine Leukocyte Esterase Negative /uL (Negative) Urine RBC 2 /hpf (0 - 4) Urine Microscopic WBC 4 /HPF (0-5) Urine Squamous Epithelial Cells Few /hpf (<5) Urine Bacteria None seen /hpf (None Seen) Urine Mucus Few (None Seen) Urine Glucose Normal mg/dL (Normal) Labs and/or images reviewed: Labs reviewed by me, Image(s) reviewed by me Assessment/Plan Assessment/Plan Impression: -acute hypoxic respiratory failure -AFib with RVR -septic shock -probable aspiration pneumonia -history of CVA -recent cervical spinal surgery -recent history of ESBL -right-sided hemiplegia -acute kidney injury, probable vasomotor nephropathy Plan: -gaviria cultures -continue vasopressor therapy with phenylephrine -change antibiotics to Zosyn and Zyvox -bronchodilators -aspiration precaution -PUD-DVT prophylaxis -spinal surgery consultation -aggressive IV replete -PICC line placement -continue amiodarone drip protocol -repeat labs, chest x-ray in a.m. -long discussion made with the patient's sister was bedside. At this time she wishes that the patient be continued a full code and is agreeable for intubation with mechanical ventilation with worsening status. Critical care time spent with patient discussing and formulating plan of care: 40 minutes. This does not include time spent performing procedures. This medical document was created using an electronic medical record system with [employer] dictation system. Although this document has been carefully reviewed, there may still be some phonetic and typographical errors. These areas are purely typographical due to imperfections of the software programs, and do not reflect any compromise in the patient's medical care. Plan discussed with: Patient, Other (RN, sister) My Orders Orders - HUMBERTO JARQUIN NP Procedure Category Date Status Time Linezolid 600mg/300ml PHA 05/29/24 Logged (Zyvox) 22:00 Sodium Chloride 0.9% PHA 05/29/24 Logged 12:00 Complete Blood Count LAB 05/30/24 Verified 04:00 ConsultdrElly Lubin CONS 05/29/24 Verified [place](Spine) 12:20 Date of Service: May 29, 2024 Billing Provider: HUMBERTO JARQUIN NP Common Visit Codes: [id number] CARE-EACH +30MIN Secondary Visit Codes: [id number] CARE PLAN 30 MINUTES HUMBERTO JARQUIN NP May 29, 2024 12:26
--- NOTE | 2024-05-29 12:36 | DVHINCON2 ---
TRISTIAN FIERRO MD 05/29/24 1236: Consultation - Spinal Surgery Date Seen: May 29, 2024 Allergies and medications Allergies: Coded Allergies: NO KNOWN ALLERGIES (Unverified , 10/15/23) Home Meds Reported Medications Solifenacin Succinate (Solifenacin Succinate) 10 Mg Tab, 1 TAB PO DAILY for 30 Days, #30 10/17/23 Hydrocodone-Acetaminophen (Hydrocodone Bitartrate/AC 10-325 mg) 1 Tab Tab, 1 TAB PO BID for 30 Days, #60 10/17/23 Acetaminophen (Acetaminophen Extra Stren) 500 Mg Tab, 1 TAB PO TID for 30 Days, #90 10/17/23 Bisacodyl (Bisacodyl Ec) 5 Mg Tab, 1 TAB PO DAILY for 30 Days, #30 10/17/23 Hydroxyzine Hcl (Hydroxyzine Hcl) 25 Mg Tab, 1 TAB PO QID for 30 Days, #120 10/17/23 Ferrous Sulfate (Iron) 325 Mg Tab, 325 MG PO DAILY, TAB 10/16/23 Risperidone (Risperidone) 1 Mg Tab, 1 TAB PO DAILY for 30 Days, #30 10/16/23 Mirtazapine (Mirtazapine Oral Disintegrating Tablet) 7.5 Mg Tab, 1 TAB PO DAILY for 30 Days, #30 10/16/23 Metoprolol Succinate (Metoprolol Succinate Er) 25 Mg Tab, 1 TAB PO DAILY 10/16/23 Aspirin (Aspirin Low Dose) 81 Mg Tab, 1 TAB PO DAILY 10/16/23 Docusate Sodium (Docusate Sodium) 100 Mg Cap, 1 CAP PO BID 10/16/23 Cholecalciferol (Vitamin D-3 Super Strengt) 2,000 Unit Tab, 1 TAB PO DAILY 10/16/23 Duloxetine HCl (Duloxetine HCl) 20 Mg Cap, 1 CAP PO BID 10/16/23 Metformin Hydrochloride (Metformin Hcl) 500 Mg Tab, 1 TAB PO BID 10/16/23 Atorvastatin Calcium (ATORVASTATIN CALCIUM) 80 Mg Tab, 1 TAB PO DAILY 10/16/23 Amlodipine Besylate (Amlodipine Besylate) 10 Mg Tab, 1 TAB PO DAILY 10/16/23 Loratadine (CLARITIN TABLET) 10 Mg Tb, 1 TAB PO DAILY 10/16/23 Losartan Potassium (Losartan Potassium) 100 Mg Tab, 1 TAB PO DAILY 10/16/23 Gabapentin (Gabapentin) 300 Mg Cap, 1 CAP PO TID 10/16/23 Examination Vital signs Vital Signs Date Time Temp Pulse Resp B/P (MAP) Pulse Ox O2 Delivery O2 Flow Rate FiO2 05/29/24 11:30 103/65 05/29/24 10:31 115 23 95 05/29/24 08:15 98.1 98.1 05/29/24 08:00 Nasal Cannula* 3 32 Medications Current Medications Medications (Trade) Dose Ordered Sig/Kelechi Route PRN Reason Start Time Stop Time Status Last Admin Aspirin 81 mg DAILY PO 05/29/24 10:00 Atorvastatin Calcium (Lipitor) 80 mg HS PO 05/28/24 22:00 05/28/24 23:29 Piperacillin Sod/ Tazobactam Sod 100 ml @ 25 mls/hr Q8HR IV 05/28/24 22:00 05/29/24 06:25 Vancomycin HCl 0 ml @ 0 mls/hr UD IV 05/28/24 20:00 05/29/24 11:56 DC Diagnostic Test (Pha) (Accu-Chek Comfort Curve T) 1 strip Q6HR 05/29/24 00:00 05/29/24 06:25 Insulin Human Regular (InsuLIN R) Q6HR SC 05/29/24 00:00 05/29/24 06:25 Dextrose 50 ml UD PRN IV Blood Sugar LESS THAN 60 05/28/24 20:00 Ondansetron HCl (Zofran) 4 mg Q4HP PRN IV NAUSEA / VOMITING 05/28/24 20:00 Acetaminophen (Tylenol Tablet) 650 mg Q6HP PRN PO PAIN SCALE 1-3 OR TEMP>100.4 05/28/24 20:00 Nitroglycerin (Ntrostat Sublingual) 0.4 mg Q5MINP PRN SL FOR CHEST PAIN 05/28/24 20:00 Morphine Sulfate 2 mg Q30M PRN IV FOR CHEST PAIN 05/28/24 20:00 Phenylephrine HCl 250 ml @ 30 mls/hr Q8H20M IV 05/29/24 02:00 05/29/24 11:30 Norepinephrine Bitartrate 250 ml @ 3.75 mls/hr Q24H IV 05/29/24 04:00 Linezolid 300 ml @ 150 mls/hr Q12HR IV 05/29/24 22:00 UNV Sodium Chloride 1,000 ml @ 125 mls/hr Q8H IV 05/29/24 12:00 UNV Laboratory CHEST XRAY REVEALS RIGHT LOBE PNEUMONIA Labs Test 05/29/24 05:51 05/29/24 03:02 05/28/24 18:31 05/28/24 16:41 Range/Units POC Glucose 153 H 70-106 mg/dl White Blood Count 35.3 *H 4.4-10.8 10^3/uL Red Blood Count 4.96 4.0-5.20 10^6/uL Hemoglobin 13.4 12.2-16.2 g/dL Hematocrit 41.9 36.0-46.0 % Mean Corpuscular Volume 84.5 80.0-100.0 fL Mean Corpuscular Hemoglobin 27.1 L 28.0-32.0 pg Mean Corpuscular Hemoglobin Concent 32.1 32.0-36.0 g/dL Red Cell Distribution Width 17.1 H 11.8-14.3 % Platelet Count 498 H 140-450 10^3/uL Mean Platelet Volume 7.2 6.9-10.8 fL Neutrophils (%) (Auto) 37.0-80.0 % Lymphocytes (%) (Auto) 10.0-50.0 % Monocytes (%) (Auto) 0.0-12.0 % Basophils (%) (Auto) 0.0-2.0 % Neutrophils # (Auto) 1.6-8.6 10 ^3/uL Lymphocytes # (Auto) 0.4-5.4 10 ^3/uL Monocytes # (Auto) 0-1.3 10 ^3/uL Differential Total Cells Counted 100.0 100 Neutrophils % (Manual) 85 H 37.0-80.0 Band Neutrophils % (Manual) 5 Lymphocytes % (Manual) 8 L 10.0-50.0 Monocytes % (Manual) 1 0-12 Eosinophils % (Manual) 0 0-7 Basophils % (Manual) 0 0.0-2.0 Metamyelocytes % (manual) 0 Myelocytes % (Manual) 1 Promyelocytes % (Manual) 0 Blast Cells % (Manual) 0 Nucleated Red Blood Cells 2.0 % Reactive Lymphocytes 0 Platelet Estimate Increased Large Platelets Few Poikilocytosis (manual) Slight Anisocytosis (manual) Sodium Level 140 136-145 mmol/L Potassium Level 4.1 3.5-5.1 mmol/L Chloride Level 113 H 98-107 mmol/L Carbon Dioxide Level 16 L 20-31 mmol/L Anion Gap 11 5-15 Blood Urea Nitrogen 36 #H 9-23 mg/dL Creatinine 2.02 H 0.550-1.02 mg/dL Glomerular Filtration Rate Calc 27 >90 mL/min BUN/Creatinine Ratio 17.8 10.0-20.0 Serum Glucose 181 H 74-106 mg/dL Lactic Acid Level 2.6 *H 0.4-2.0 mmol/L Calcium Level 7.9 L 8.7-10.4 mg/dL Total Bilirubin 0.3 0.2-1.0 mg/dL Aspartate Amino Transferase (AST) 18 13-40 U/L Alanine Aminotransferase (ALT) < 9 7-40 U/L Alkaline Phosphatase 94 46-116 U/L Total Protein 5.1 L 5.7-8.2 g/dL Albumin 2.8 L 3.2-4.8 g/dL Random Vancomycin Level 11.9 H 5-10 ug/mL Troponin I High Sensitivity 4 </=34 ng/L Urine Color Yellow Yellow Urine Clarity Clear Clear Urine pH 6.0 5.0-9.0 Urine Specific Rea 1.031 1.001-1.035 Urine Protein 1+ H Negative Urine Ketones Trace Negative Urine Blood Negative Negative /uL Urine Nitrite Negative Negative Urine Bilirubin Negative Negative Urine Urobilinogen Normal Negative mg/dL Urine Leukocyte Esterase Negative Negative /uL Urine RBC 2 0 - 4 /hpf Urine Microscopic WBC 4 0-5 /HPF Urine Squamous Epithelial Cells Few <5 /hpf Urine Bacteria None seen None Seen /hpf Urine Mucus Few None Seen Urine Glucose Normal Normal mg/dL Problem List/Assessment/Plan Assessment and Plan ONE MONTH POST OP FROM CERVICAL SPINE SURGERY ELEVATED WBC CHEST XRAY REVEALS RIGHT LOBE PNEUMONIA. INCISION CLOSED WILL CONTINUE TO MONITOR ANA LILIA TORRES NP 05/29/24 1254: Consultation - Spinal Surgery Date Seen: May 29, 2024 Referring Physician Referring Physician Attending Doctor: Rakesh Rosado Filer Repairer Reason for Consultation Postop follow-up status post cervical spine surgery, patient admitted for pneumonia History of Present Illness History of Present Illness History of Present Illness 63-year-old female presents for evaluation of altered mental status. Patient was CVA with right-sided deficits presents for after being noted to be progressively more altered at the [facility] where she resides. It is unknown what is the patient's baseline. Currently she is lethargic and does not follow commands. 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), CVS:Abnormal, RESPIRATORY:Abnormal (Patient currently admitted for pneumonia), GI:Normal, :Normal, MSK:Abnormal (Patient is lethargic at this time) Examination Vital signs Vital Signs Date Time Temp Pulse Resp B/P (MAP) Pulse Ox O2 Delivery O2 Flow Rate FiO2 05/29/24 11:30 103/65 05/29/24 10:39 88/65 05/29/24 10:31 115 23 88/61 (70) 95 05/29/24 10:15 140 22 97/55 (69) 95 05/29/24 09:46 113 25 98/76 (83) 97 05/29/24 09:31 112 18 94/74 (81) 100 05/29/24 09:15 111 25 128/80 (96) 95 05/29/24 09:06 112/71 05/29/24 09:00 114 25 112/71 (85) 95 05/29/24 08:46 113 26 116/59 (78) 95 05/29/24 08:15 98.1 113 21 97/76 (83) 95 98.1 05/29/24 08:00 111 05/29/24 08:00 111 05/29/24 08:00 24 100 Nasal Cannula* 3 32 05/29/24 07:15 111 20 89/49 (62) 95 05/29/24 07:01 111 24 86/54 (65) 95 05/29/24 06:45 111 25 98/73 (81) 95 05/29/24 06:30 112 25 96/58 (71) 05/29/24 06:15 113 26 91/71 (78) 05/29/24 06:00 113 05/29/24 06:00 114 25 113/39 (63) 05/29/24 06:00 23 95 Nasal Cannula* 3 32 05/29/24 05:45 116 25 97/77 (84) 05/29/24 05:30 118 21 05/29/24 05:15 119 29 100 05/29/24 05:00 123 28 05/29/24 04:45 117 22 87/66 (73) 05/29/24 04:30 123 22 99/72 (81) 05/29/24 04:20 89/40 05/29/24 04:15 128 25 110/59 (76) 91 05/29/24 04:00 23 95 Nasal Cannula* 3 32 05/29/24 04:00 99.8 124 24 100/72 (81) 91 99.8 05/29/24 04:00 125 05/29/24 04:00 99.8 118 24 100/72 (81) 92 99.8 05/29/24 04:00 88/54 05/29/24 03:45 128 26 89/69 (76) 05/29/24 03:36 80/20 05/29/24 03:30 123 21 89/51 (64) 05/29/24 03:15 129 18 95/40 (58) 05/29/24 03:00 128 22 110/88 (95) 05/29/24 02:45 127 35 103/71 (82) 94 05/29/24 02:30 125 18 05/29/24 02:15 129 24 97/70 (79) 99 05/29/24 02:00 99.8 134 22 149/103 (118) 100 99.8 05/29/24 02:00 30 94 Nasal Cannula* 3 32 05/29/24 01:00 99.2 122 16 111/87 (95) 100 99.2 05/28/24 22:53 128 18 98 Nasal Cannula* 4 36 05/28/24 20:00 120 23 98 Nasal Cannula* 4 36 05/28/24 20:00 120 23 115/68 (84) 92 05/28/24 20:00 123 05/28/24 19:30 98.2 114 16 114/65 (81) 96 98.2 05/28/24 18:00 98.2 96 17 122/72 (89) 98 98.2 05/28/24 17:00 97.7 107 18 118/59 (78) 98 97.7 05/28/24 15:30 110 24 98 Nasal Cannula* 4 36 05/28/24 15:10 97.7 123 28 103/65 (78) 98 97.7 05/28/24 14:43 121 05/28/24 14:42 97.7 120 16 101/65 (77) 98 97.7 Lab Test 05/29/24 12:19 05/29/24 05:51 05/29/24 03:02 05/28/24 23:53 Range/Units POC Glucose 210 H 153 H 254 H 70-106 mg/dl White Blood Count 35.3 *H 4.4-10.8 10^3/uL Red Blood Count 4.96 4.0-5.20 10^6/uL Hemoglobin 13.4 12.2-16.2 g/dL Hematocrit 41.9 36.0-46.0 % Mean Corpuscular Volume 84.5 80.0-100.0 fL Mean Corpuscular Hemoglobin 27.1 L 28.0-32.0 pg Mean Corpuscular Hemoglobin Concent 32.1 32.0-36.0 g/dL Red Cell Distribution Width 17.1 H 11.8-14.3 % Platelet Count 498 H 140-450 10^3/uL Mean Platelet Volume 7.2 6.9-10.8 fL Neutrophils (%) (Auto) 37.0-80.0 % Lymphocytes (%) (Auto) 10.0-50.0 % Monocytes (%) (Auto) 0.0-12.0 % Basophils (%) (Auto) 0.0-2.0 % Neutrophils # (Auto) 1.6-8.6 10 ^3/uL Lymphocytes # (Auto) 0.4-5.4 10 ^3/uL Monocytes # (Auto) 0-1.3 10 ^3/uL Differential Total Cells Counted 100.0 100 Neutrophils % (Manual) 85 H 37.0-80.0 Band Neutrophils % (Manual) 5 Lymphocytes % (Manual) 8 L 10.0-50.0 Monocytes % (Manual) 1 0-12 Eosinophils % (Manual) 0 0-7 Basophils % (Manual) 0 0.0-2.0 Metamyelocytes % (manual) 0 Myelocytes % (Manual) 1 Promyelocytes % (Manual) 0 Blast Cells % (Manual) 0 Nucleated Red Blood Cells 2.0 % Reactive Lymphocytes 0 Platelet Estimate Increased Large Platelets Few Poikilocytosis (manual) Slight Anisocytosis (manual) Sodium Level 140 136-145 mmol/L Potassium Level 4.1 3.5-5.1 mmol/L Chloride Level 113 H 98-107 mmol/L Carbon Dioxide Level 16 L 20-31 mmol/L Anion Gap 11 5-15 Blood Urea Nitrogen 36 #H 9-23 mg/dL Creatinine 2.02 H 0.550-1.02 mg/dL Glomerular Filtration Rate Calc 27 >90 mL/min BUN/Creatinine Ratio 17.8 10.0-20.0 Serum Glucose 181 H 74-106 mg/dL Lactic Acid Level 2.6 *H 0.4-2.0 mmol/L Calcium Level 7.9 L 8.7-10.4 mg/dL Total Bilirubin 0.3 0.2-1.0 mg/dL Aspartate Amino Transferase (AST) 18 13-40 U/L Alanine Aminotransferase (ALT) < 9 7-40 U/L Alkaline Phosphatase 94 46-116 U/L Total Protein 5.1 L 5.7-8.2 g/dL Albumin 2.8 L 3.2-4.8 g/dL Random Vancomycin Level 11.9 H 5-10 ug/mL Test 05/28/24 18:31 05/28/24 16:41 05/28/24 15:22 Range/Units Lactic Acid Level 4.7 *H 3.1 *H 0.4-2.0 mmol/L Troponin I High Sensitivity 4 6 </=34 ng/L Urine Color Yellow Yellow Urine Clarity Clear Clear Urine pH 6.0 5.0-9.0 Urine Specific Rea 1.031 1.001-1.035 Urine Protein 1+ H Negative Urine Ketones Trace Negative Urine Blood Negative Negative /uL Urine Nitrite Negative Negative Urine Bilirubin Negative Negative Urine Urobilinogen Normal Negative mg/dL Urine Leukocyte Esterase Negative Negative /uL Urine RBC 2 0 - 4 /hpf Urine Microscopic WBC 4 0-5 /HPF Urine Squamous Epithelial Cells Few <5 /hpf Urine Bacteria None seen None Seen /hpf Urine Mucus Few None Seen Urine Glucose Normal Normal mg/dL White Blood Count 34.4 *H 4.4-10.8 10^3/uL Red Blood Count 5.55 H 4.0-5.20 10^6/uL Hemoglobin 15.3 12.2-16.2 g/dL Hematocrit 45.8 36.0-46.0 % Mean Corpuscular Volume 82.6 80.0-100.0 fL Mean Corpuscular Hemoglobin 27.6 L 28.0-32.0 pg Mean Corpuscular Hemoglobin Concent 33.4 32.0-36.0 g/dL Red Cell Distribution Width 16.6 H 11.8-14.3 % Platelet Count 648 H 140-450 10^3/uL Mean Platelet Volume 7.4 6.9-10.8 fL Neutrophils (%) (Auto) 37.0-80.0 % Lymphocytes (%) (Auto) 10.0-50.0 % Monocytes (%) (Auto) 0.0-12.0 % Basophils (%) (Auto) 0.0-2.0 % Neutrophils # (Auto) 1.6-8.6 10 ^3/uL Lymphocytes # (Auto) 0.4-5.4 10 ^3/uL Monocytes # (Auto) 0-1.3 10 ^3/uL Differential Total Cells Counted 100.0 100 Neutrophils % (Manual) 68 37.0-80.0 Band Neutrophils % (Manual) 20 Lymphocytes % (Manual) 7 L 10.0-50.0 Monocytes % (Manual) 5 0-12 Eosinophils % (Manual) 0 0-7 Basophils % (Manual) 0 0.0-2.0 Metamyelocytes % (manual) 0 Myelocytes % (Manual) 0 Promyelocytes % (Manual) 0 Blast Cells % (Manual) 0 Reactive Lymphocytes 0 Platelet Estimate Increased Large Platelets Few Poikilocytosis (manual) Slight Anisocytosis (manual) Slight Sodium Level 138 136-145 mmol/L Potassium Level 4.9 3.5-5.1 mmol/L Chloride Level 104 98-107 mmol/L Carbon Dioxide Level 20 20-31 mmol/L Anion Gap 14 5-15 Blood Urea Nitrogen 47 H 9-23 mg/dL Creatinine 2.04 H 0.550-1.02 mg/dL Glomerular Filtration Rate Calc 27 >90 mL/min BUN/Creatinine Ratio 23.0 H 10.0-20.0 Serum Glucose 269 H 74-106 mg/dL Calcium Level 9.7 8.7-10.4 mg/dL Total Bilirubin 0.3 0.2-1.0 mg/dL Aspartate Amino Transferase (AST) 16 13-40 U/L Alanine Aminotransferase (ALT) 12 7-40 U/L Alkaline Phosphatase 109 46-116 U/L Total Protein 6.4 5.7-8.2 g/dL Albumin 3.8 3.2-4.8 g/dL Current Medications Medications (Trade) Dose Ordered Sig/Kelechi Route Start Time Stop Time Status Last Admin Sodium Chloride 1,000 ml @ 1,000 mls/hr Q1H ONCE IV 05/28/24 15:15 05/28/24 16:14 DC 05/28/24 15:40 Ondansetron HCl (Zofran) 4 mg ONCE ONCE IV 05/28/24 15:15 05/28/24 15:16 DC 05/28/24 15:15 Cefepime HCl 50 ml @ 12.5 mls/hr ONCE ONCE IV 05/28/24 17:00 05/28/24 20:59 DC 05/28/24 17:24 Vancomycin HCl 250 ml @ 250 mls/hr ONCE ONCE IV 05/28/24 17:00 05/28/24 17:59 DC 05/28/24 17:25 Sodium Chloride 2,000 ml @ 1,000 mls/hr Q2H ONCE IV 05/28/24 17:00 05/28/24 18:59 DC 05/28/24 17:08 Azithromycin 250 ml @ 125 mls/hr ONCE ONCE IV 05/28/24 18:15 05/28/24 20:14 DC 05/28/24 19:09 Atorvastatin Calcium (Lipitor) 80 mg HS PO 05/28/24 22:00 05/28/24 23:29 Piperacillin Sod/ Tazobactam Sod 100 ml @ 25 mls/hr Q8HR IV 05/28/24 22:00 05/29/24 06:25 Diagnostic Test (Pha) (Accu-Chek Comfort Curve T) 1 strip Q6HR 05/29/24 00:00 05/29/24 06:25 Insulin Human Regular (InsuLIN R) Q6HR SC 05/29/24 00:00 05/29/24 06:25 Sodium Chloride 1,000 ml @ 1,000 mls/hr Q1H ONCE IV 05/28/24 23:45 05/29/24 00:44 DC 05/28/24 23:56 Phenylephrine HCl 250 ml @ 30 mls/hr Q8H20M IV 05/29/24 02:00 05/29/24 11:30 Sodium Chloride 500 ml @ 500 mls/hr Q1H ONCE IV 05/29/24 02:15 05/29/24 03:14 DC 05/29/24 02:40 Amiodarone HCl 100 ml @ 600 mls/hr ONCE ONCE IV 05/29/24 04:00 05/29/24 04:09 DC 05/29/24 04:16 Sodium Chloride 1,000 ml @ 85 mls/hr [id number] ONCE IV 05/29/24 04:15 05/29/24 16:00 05/29/24 04:27 Albumin Human 250 ml @ 250 mls/hr ONCE ONCE IV 05/29/24 04:30 05/29/24 05:29 DC 05/29/24 05:04 Medications Vital Signs Date Time Temp Pulse Resp B/P (MAP) Pulse Ox O2 Delivery O2 Flow Rate FiO2 05/29/24 11:30 103/65 05/29/24 10:39 88/65 05/29/24 10:31 115 23 88/61 (70) 95 05/29/24 10:15 140 22 97/55 (69) 95 05/29/24 09:46 113 25 98/76 (83) 97 05/29/24 09:31 112 18 94/74 (81) 100 05/29/24 09:15 111 25 128/80 (96) 95 05/29/24 09:06 112/71 05/29/24 09:00 114 25 112/71 (85) 95 05/29/24 08:46 113 26 116/59 (78) 95 05/29/24 08:15 98.1 113 21 97/76 (83) 95 98.1 05/29/24 08:00 111 05/29/24 08:00 111 05/29/24 08:00 24 100 Nasal Cannula* 3 32 05/29/24 07:15 111 20 89/49 (62) 95 05/29/24 07:01 111 24 86/54 (65) 95 05/29/24 06:45 111 25 98/73 (81) 95 05/29/24 06:30 112 25 96/58 (71) 05/29/24 06:15 113 26 91/71 (78) 05/29/24 06:00 113 05/29/24 06:00 114 25 113/39 (63) 05/29/24 06:00 23 95 Nasal Cannula* 3 32 05/29/24 05:45 116 25 97/77 (84) 05/29/24 05:30 118 21 05/29/24 05:15 119 29 100 05/29/24 05:00 123 28 05/29/24 04:45 117 22 87/66 (73) 05/29/24 04:30 123 22 99/72 (81) 05/29/24 04:20 89/40 05/29/24 04:15 128 25 110/59 (76) 91 05/29/24 04:00 23 95 Nasal Cannula* 3 32 05/29/24 04:00 99.8 124 24 100/72 (81) 91 99.8 05/29/24 04:00 125 05/29/24 04:00 99.8 118 24 100/72 (81) 92 99.8 05/29/24 04:00 88/54 05/29/24 03:45 128 26 89/69 (76) 05/29/24 03:36 80/20 05/29/24 03:30 123 21 89/51 (64) 05/29/24 03:15 129 18 95/40 (58) 05/29/24 03:00 128 22 110/88 (95) 05/29/24 02:45 127 35 103/71 (82) 94 05/29/24 02:30 125 18 05/29/24 02:15 129 24 97/70 (79) 99 05/29/24 02:00 99.8 134 22 149/103 (118) 100 99.8 05/29/24 02:00 30 94 Nasal Cannula* 3 32 05/29/24 01:00 99.2 122 16 111/87 (95) 100 99.2 05/28/24 22:53 128 18 98 Nasal Cannula* 4 36 05/28/24 20:00 120 23 98 Nasal Cannula* 4 36 05/28/24 20:00 120 23 115/68 (84) 92 05/28/24 20:00 123 05/28/24 19:30 98.2 114 16 114/65 (81) 96 98.2 05/28/24 18:00 98.2 96 17 122/72 (89) 98 98.2 05/28/24 17:00 97.7 107 18 118/59 (78) 98 97.7 05/28/24 15:30 110 24 98 Nasal Cannula* 4 36 05/28/24 15:10 97.7 123 28 103/65 (78) 98 97.7 05/28/24 14:43 121 05/28/24 14:42 97.7 120 16 101/65 (77) 98 97.7 Lab Test 05/29/24 12:19 05/29/24 05:51 05/29/24 03:02 05/28/24 23:53 Range/Units POC Glucose 210 H 153 H 254 H 70-106 mg/dl White Blood Count 35.3 *H 4.4-10.8 10^3/uL Red Blood Count 4.96 4.0-5.20 10^6/uL Hemoglobin 13.4 12.2-16.2 g/dL Hematocrit 41.9 36.0-46.0 % Mean Corpuscular Volume 84.5 80.0-100.0 fL Mean Corpuscular Hemoglobin 27.1 L 28.0-32.0 pg Mean Corpuscular Hemoglobin Concent 32.1 32.0-36.0 g/dL Red Cell Distribution Width 17.1 H 11.8-14.3 % Platelet Count 498 H 140-450 10^3/uL Mean Platelet Volume 7.2 6.9-10.8 fL Neutrophils (%) (Auto) 37.0-80.0 % Lymphocytes (%) (Auto) 10.0-50.0 % Monocytes (%) (Auto) 0.0-12.0 % Basophils (%) (Auto) 0.0-2.0 % Neutrophils # (Auto) 1.6-8.6 10 ^3/uL Lymphocytes # (Auto) 0.4-5.4 10 ^3/uL Monocytes # (Auto) 0-1.3 10 ^3/uL Differential Total Cells Counted 100.0 100 Neutrophils % (Manual) 85 H 37.0-80.0 Band Neutrophils % (Manual) 5 Lymphocytes % (Manual) 8 L 10.0-50.0 Monocytes % (Manual) 1 0-12 Eosinophils % (Manual) 0 0-7 Basophils % (Manual) 0 0.0-2.0 Metamyelocytes % (manual) 0 Myelocytes % (Manual) 1 Promyelocytes % (Manual) 0 Blast Cells % (Manual) 0 Nucleated Red Blood Cells 2.0 % Reactive Lymphocytes 0 Platelet Estimate Increased Large Platelets Few Poikilocytosis (manual) Slight Anisocytosis (manual) Sodium Level 140 136-145 mmol/L Potassium Level 4.1 3.5-5.1 mmol/L Chloride Level 113 H 98-107 mmol/L Carbon Dioxide Level 16 L 20-31 mmol/L Anion Gap 11 5-15 Blood Urea Nitrogen 36 #H 9-23 mg/dL Creatinine 2.02 H 0.550-1.02 mg/dL Glomerular Filtration Rate Calc 27 >90 mL/min BUN/Creatinine Ratio 17.8 10.0-20.0 Serum Glucose 181 H 74-106 mg/dL Lactic Acid Level 2.6 *H 0.4-2.0 mmol/L Calcium Level 7.9 L 8.7-10.4 mg/dL Total Bilirubin 0.3 0.2-1.0 mg/dL Aspartate Amino Transferase (AST) 18 13-40 U/L Alanine Aminotransferase (ALT) < 9 7-40 U/L Alkaline Phosphatase 94 46-116 U/L Total Protein 5.1 L 5.7-8.2 g/dL Albumin 2.8 L 3.2-4.8 g/dL Random Vancomycin Level 11.9 H 5-10 ug/mL Test 05/28/24 18:31 05/28/24 16:41 05/28/24 15:22 Range/Units Lactic Acid Level 4.7 *H 3.1 *H 0.4-2.0 mmol/L Troponin I High Sensitivity 4 6 </=34 ng/L Urine Color Yellow Yellow Urine Clarity Clear Clear Urine pH 6.0 5.0-9.0 Urine Specific Rea 1.031 1.001-1.035 Urine Protein 1+ H Negative Urine Ketones Trace Negative Urine Blood Negative Negative /uL Urine Nitrite Negative Negative Urine Bilirubin Negative Negative Urine Urobilinogen Normal Negative mg/dL Urine Leukocyte Esterase Negative Negative /uL Urine RBC 2 0 - 4 /hpf Urine Microscopic WBC 4 0-5 /HPF Urine Squamous Epithelial Cells Few <5 /hpf Urine Bacteria None seen None Seen /hpf Urine Mucus Few None Seen Urine Glucose Normal Normal mg/dL White Blood Count 34.4 *H 4.4-10.8 10^3/uL Red Blood Count 5.55 H 4.0-5.20 10^6/uL Hemoglobin 15.3 12.2-16.2 g/dL Hematocrit 45.8 36.0-46.0 % Mean Corpuscular Volume 82.6 80.0-100.0 fL Mean Corpuscular Hemoglobin 27.6 L 28.0-32.0 pg Mean Corpuscular Hemoglobin Concent 33.4 32.0-36.0 g/dL Red Cell Distribution Width 16.6 H 11.8-14.3 % Platelet Count 648 H 140-450 10^3/uL Mean Platelet Volume 7.4 6.9-10.8 fL Neutrophils (%) (Auto) 37.0-80.0 % Lymphocytes (%) (Auto) 10.0-50.0 % Monocytes (%) (Auto) 0.0-12.0 % Basophils (%) (Auto) 0.0-2.0 % Neutrophils # (Auto) 1.6-8.6 10 ^3/uL Lymphocytes # (Auto) 0.4-5.4 10 ^3/uL Monocytes # (Auto) 0-1.3 10 ^3/uL Differential Total Cells Counted 100.0 100 Neutrophils % (Manual) 68 37.0-80.0 Band Neutrophils % (Manual) 20 Lymphocytes % (Manual) 7 L 10.0-50.0 Monocytes % (Manual) 5 0-12 Eosinophils % (Manual) 0 0-7 Basophils % (Manual) 0 0.0-2.0 Metamyelocytes % (manual) 0 Myelocytes % (Manual) 0 Promyelocytes % (Manual) 0 Blast Cells % (Manual) 0 Reactive Lymphocytes 0 Platelet Estimate Increased Large Platelets Few Poikilocytosis (manual) Slight Anisocytosis (manual) Slight Sodium Level 138 136-145 mmol/L Potassium Level 4.9 3.5-5.1 mmol/L Chloride Level 104 98-107 mmol/L Carbon Dioxide Level 20 20-31 mmol/L Anion Gap 14 5-15 Blood Urea Nitrogen 47 H 9-23 mg/dL Creatinine 2.04 H 0.550-1.02 mg/dL Glomerular Filtration Rate Calc 27 >90 mL/min BUN/Creatinine Ratio 23.0 H 10.0-20.0 Serum Glucose 269 H 74-106 mg/dL Calcium Level 9.7 8.7-10.4 mg/dL Total Bilirubin 0.3 0.2-1.0 mg/dL Aspartate Amino Transferase (AST) 16 13-40 U/L Alanine Aminotransferase (ALT) 12 7-40 U/L Alkaline Phosphatase 109 46-116 U/L Total Protein 6.4 5.7-8.2 g/dL Albumin 3.8 3.2-4.8 g/dL Current Medications Medications (Trade) Dose Ordered Sig/Kelechi Route Start Time Stop Time Status Last Admin Sodium Chloride 1,000 ml @ 1,000 mls/hr Q1H ONCE IV 05/28/24 15:15 05/28/24 16:14 DC 05/28/24 15:40 Ondansetron HCl (Zofran) 4 mg ONCE ONCE IV 05/28/24 15:15 05/28/24 15:16 DC 05/28/24 15:15 Cefepime HCl 50 ml @ 12.5 mls/hr ONCE ONCE IV 05/28/24 17:00 05/28/24 20:59 DC 05/28/24 17:24 Vancomycin HCl 250 ml @ 250 mls/hr ONCE ONCE IV 05/28/24 17:00 05/28/24 17:59 DC 05/28/24 17:25 Sodium Chloride 2,000 ml @ 1,000 mls/hr Q2H ONCE IV 05/28/24 17:00 05/28/24 18:59 DC 05/28/24 17:08 Azithromycin 250 ml @ 125 mls/hr ONCE ONCE IV 05/28/24 18:15 05/28/24 20:14 DC 05/28/24 19:09 Atorvastatin Calcium (Lipitor) 80 mg HS PO 05/28/24 22:00 05/28/24 23:29 Piperacillin Sod/ Tazobactam Sod 100 ml @ 25 mls/hr Q8HR IV 05/28/24 22:00 05/29/24 06:25 Diagnostic Test (Pha) (Accu-Chek Comfort Curve T) 1 strip Q6HR 05/29/24 00:00 05/29/24 06:25 Insulin Human Regular (InsuLIN R) Q6HR SC 05/29/24 00:00 05/29/24 06:25 Sodium Chloride 1,000 ml @ 1,000 mls/hr Q1H ONCE IV 05/28/24 23:45 05/29/24 00:44 DC 05/28/24 23:56 Phenylephrine HCl 250 ml @ 30 mls/hr [id number] IV 05/29/24 02:00 05/29/24 11:30 Sodium Chloride 500 ml @ 500 mls/hr Q1H ONCE IV 05/29/24 02:15 05/29/24 03:14 DC 05/29/24 02:40 Amiodarone HCl 100 ml @ 600 mls/hr ONCE ONCE IV 05/29/24 04:00 05/29/24 04:09 DC 05/29/24 04:16 Sodium Chloride 1,000 ml @ 85 mls/hr [id number] ONCE IV 05/29/24 04:15 05/29/24 16:00 05/29/24 04:27 Albumin Human 250 ml @ 250 mls/hr ONCE ONCE IV 05/29/24 04:30 05/29/24 05:29 DC 05/29/24 05:04 Laboratory Laboratory Tests 05/29/24 03:02 Chemistry Test 05/28/24 15:22 05/29/24 03:02 Albumin 3.8 g/dL (3.2-4.8) 2.8 g/dL (3.2-4.8) L Calcium Level 9.7 mg/dL (8.7-10.4) 7.9 mg/dL (8.7-10.4) L Total Protein 6.4 g/dL (5.7-8.2) 5.1 g/dL (5.7-8.2) L LFT Test 05/28/24 15:22 05/29/24 03:02 Alanine Aminotransferase (ALT) 12 U/L (7-40) < 9 U/L (7-40) Alkaline Phosphatase 109 U/L (46-116) 94 U/L (46-116) Aspartate Amino Transferase (AST) 16 U/L (13-40) 18 U/L (13-40) Total Bilirubin 0.3 mg/dL (0.2-1.0) 0.3 mg/dL (0.2-1.0) Examination: GENERAL:Abnormal (Patient is acutely ill at this time, sepsis admission not related to spine surgery), HEENT:Normal, NECK:Normal (Postoperative site is free of any swelling redness ecchymosis or signs of infection), LUNGS:Abnormal (Patient requiring oxygen findings of pneumonia for this admission for hospitalist), CVS:Abnormal (Patient is experiencing sepsis hypotensive), ABDOMEN:Normal, MSK:Abnormal (Right-sided contracture), SKIN:Normal (Dry), NEURO:Abnormal (Patient is lethargic minimally responsive at this time) Problem List/Assessment/Plan Problems: (1) Postoperative pain after spinal surgery Assessment and Plan Patient is postoperative surgical site is free of any signs of infection Skin is well healed, family reported patient had a positive outcome postoperatively when she initially got to the care facility Patient appears to be admitted for sepsis related to pneumonia not related to any surgical component. Further care management per admitting team's discretion Patient does not need any spine surgery intervention Call with questions Keke Torres [facility] Orthopaedic Spine Surgery nurse practitioner For Dr Bucky Fierro Patient was examined, chart reviewed, labs evaluated, and diagnostic studies and findings analyzed. Case was discussed with Dr. Tristian Fierro who formulated the plan of care. This medical document was created using an electronic medical record system with [employer] dictation system. Although this document has been carefully reviewed, there might still be some phonetic and typographical errors. These areas are purely typographical due to imperfections of the software programs, and do not reflect any compromise in the patient's medical care. Plan discussed with Plan discussed with: Patient, Other (bedside nurse) TRISTIAN FIERRO MD May 29, 2024 12:36 ANA LILIA TORRES NP May 29, 2024 12:54
[2024-05-29] MEDS: LINEZOLID 600MG/300ML 300 ML IV SCH (13:32)
[2024-05-29 13:59] LABS: INR 1.18 (0.9-1.15); Partial Thromboplastin Time 38.4 SEC (24.5-34.5); Prothrombin Time 12.3 sec (9.3-11.8)
--- NOTE | 2024-05-29 15:01 | ECG ---
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
[2024-05-29] MEDS: LIDOCAINE 1% (LOCAL ANESTH.) PF 5ml SDV ID ONE (15:48)
[2024-05-29] MEDS ORDERED: VANCOMYCIN 1GM/200ML PM 250 ML IV ONE (18:00)
[2024-05-29] MEDS: SODIUM CHLOR 0.9% PF (SALINE LOCK) 10ML VIAL/SYR IV SCH (21:09)
[2024-05-29] MEDS: MAGNESIUM SULFATE 1GM/100ML 100 ML IV SCH (22:56)
[2024-05-29] MEDS: PHENYLEPHRINE INJ 80 MG in SODIUM CHL 0.9% 242 ML IV SCH (22:58)
[2024-05-30] VITALS (38 sets, daily range): BP systolic 87–183; BP diastolic 31–87; PULSE 70–143; RESP 9–99; TEMP 98.2–98.4; O2SAT 24–100
[2024-05-30] MEDS: HYDROMORPHONE HCL 1 MG/ML INJ IV ONE (06:51)
[2024-05-30 07:36] LABS: Hemoglobin 14.8 g/dL (12.2-16.2); Red Cell Distribution Width 17.3 % (11.8-14.3)
[2024-05-30 07:39] LABS: Anion Gap 16.00001 (5-15)
[2024-05-30 07:42] LABS: Hematocrit 45.2 % (36.0-46.0); Mean Corpuscular Hemoglobin 27.5 pg (28.0-32.0); Mean Corpuscular Hgb Conc. 32.7 g/dL (32.0-36.0); Platelet Count (auto) 333 10^3/uL (140-450); Red Blood Cells 5.39 10^6/uL (4.0-5.20)
[2024-05-30] MEDS: NALOXONE HCL 0.4 MG/ML VIAL ONE ×2 (07:45→07:50)
[2024-05-30 07:47] LABS: Basophils % (manual) 0 (0.0-2.0); Blast Cells 0; Promyelocytes % 0; Reactive Lymphocytes 0
[2024-05-30 07:48] LABS: Blood Urea Nitrogen 47 mg/dL (9-23); Calcium 7.9 mg/dL (8.7-10.4); Chloride 111 mmol/L (98-107); Glucose 208 mg/dL (74-106); Magnesium 2.7 mg/dL (1.6-2.6); Sodium 137 mmol/L (136-145)
[2024-05-30 07:50] LABS: Potassium 5.6 mmol/L (3.5-5.1)
[2024-05-30 07:51] LABS: Carbon Dioxide < 10 mmol/L (20-31)
[2024-05-30] MEDS: ETOMIDATE (2MG/ML) 20ML VIAL IV ONE (07:59)
[2024-05-30] MEDS: ROCURONIUM 10MG/ML 10ML VIAL IV ONE (08:01)
[2024-05-30] MEDS: SODIUM BICARB 8.4% 50Meq/50ml SYR Vial IV ONE (08:10)
[2024-05-30] MEDS: DEXTROSE 50% SYRINGE 50 ML IV ONE (08:11)
[2024-05-30] MEDS: fentaNYL Drip 2500mCg/250mlNS 0 ML IV ONE (08:12)
[2024-05-30] MEDS: MIDAZOLAM DRIP 50 mg/50mL 0 ML IV ONE (08:13)
[2024-05-30] MEDS: InsuLIN REG 1unit/0.01ml Soln (100units/ml) IV ONE (08:15)
[2024-05-30] MEDS: DEXTROSE (50%) 50ML SYRG IV ONE (08:15)
[2024-05-30] MEDS ORDERED: SODIUM BICARB 50mEq/50ml Vial 150 ML in D5W 5% 1,000 ML IV SCH (08:15)
[2024-05-30] MEDS: SODIUM BICARB 8.4% 50Meq/50ml SYR INJ IV ONE (08:15)
--- NOTE | 2024-05-30 08:29 | DVH ---
CHEST RADIOGRAPH Indication: INTUBATED Technique: Single frontal view of the chest was obtained Comparison: XY CHEST PORTABLE on DOS: 05/28/24 FINDINGS: Lines and Tubes: The endotracheal tube terminates 2.3 cm above the karly. Left PICC terminates in th e superior vena cava. Lungs: Hazy bilateral opacities. Pleura: No effusion. There is a right pneumothorax, approximately 35% volume. Cardiomediastinal contours: Unremarkable Bones: No acute osseous abnormality. IMPRESSION: 1. Endotracheal tube terminates 2.3 cm above the karly. 2. Right pneumothorax, about 35%. 3. Hazy bilateral pulmonary opacities.
[2024-05-30] MEDS ORDERED: BUMETANIDE 2.5mg/10ml (0.25 mg/ml) INJ IV ONE (08:30)
--- NOTE | 2024-05-30 08:34 | DVH ---
Exam: US US GUIDED VASCULAR ACCESS Date: 05/29/2024 02:49 PM Clinical History: PICC placement Comparison: None Findings: Targeted sonographic evaluation of the right basilic vein was obtained utilizing grayscale and color Doppler imaging. IMPRESSION: Sonographic assistance for central line placement. Please refer to procedural report for detailed fin dings.
[2024-05-30 08:43] LABS: Eosinophils % (manual) 1 (0-7); Myelocytes % 1
[2024-05-30 08:44] LABS: Metamyelocytes % 2
[2024-05-30 08:45] LABS: Band Neutrophils % (manual) 12
[2024-05-30 08:46] LABS: Anisocytosis Slight; Lymphocytes % (manual) 8 (10.0-50.0); Monocytes % (manual) 8 (0-12)
[2024-05-30 08:47] LABS: Platelet Estimate Adequate
--- NOTE | 2024-05-30 10:50 | RESUS ---
CODE BLUE ASSESSSMENT History of Events History of Events: See EMR for care/treatment provided during admission. Per nurse report patient became unresponsive at 0742 when narcan was given at 0745 and 0750. Patient then became bradycardic and 1 MG atropine IV was given at 0752 when Rapid Response was called. Found to be without pulse/PEA at 0754 and Code Blue initiated. Initial Information Date: May 30, 2024 Time: 07:54 Location of Arrest: ICU (Central) Arrest Witnessed: Yes CPR started initial time: 07:54 CPR started by whom: Hospital Staff Type of arrest: Cardiac, Adult, Witnessed Spontaneous Respirations: No Pulse Present: No Monitoring: ECG, Pulse Oximetry, Apnea Crash Cart Opened and Supplies: Yes Airway Ventilation Breathing at Onset: Assisted Oxygen Delivery Method: Ambu-Bag Time of first Assisted Ventila: 07:42 Artificial Ventilation: Bag/Mask Intubation Time: 08:01 Intubation Size: 8.0 cuffed Intubated by: DR FELIZ Intubated orally: Yes Tube secured at: 22 CO2 indicator used: Yes Confirmation: Auscultation, Exhaled CO2, Chest X-ray Suctioning (Oral/Tracheal): Yes Circulation Circulation #1: Time: 07:54 Pulse Rate (adult): 0 Blood Pressure Systolic: 0 Blood Pressure Diastolic: 0 Temperature (Fahrenheit): 98.5 Circulation Comment: PEA Circulation #2: Time: 07:57 Pulse Rate (adult): 103 Blood Pressure Systolic: 130 Blood Pressure Diastolic: 87 Circulation Comment: ROSC Circulation #3: Time: 08:15 Pulse Rate (adult): 0 Blood Pressure Systolic: 0 Blood Pressure Diastolic: 0 Circulation Comment: SECOND CODE BLUE Circulation #4: Time: 08:17 Pulse Rate (adult): 0 Blood Pressure Systolic: 0 Blood Pressure Diastolic: 0 Circulation Comment: PEA Circulation #5: Time: 08:19 Pulse Rate (adult): 0 Blood Pressure Systolic: 0 Blood Pressure Diastolic: 0 Circulation Comment: PEA Circulation #6: Time: 08:21 Pulse Rate (adult): 0 Blood Pressure Systolic: 0 Blood Pressure Diastolic: 0 Circulation Comment: PEA Defibrillation Defbrillation : Time Defibrillator Applied: 07:42 Compressions: Manual Medications & Response Medications and Responses #1: Medication Time: 07:55 ADULT Medications Given ADULT: Epinephrine 1 mg Route of Administration: IV Medications and Responses #2: Medication Time: 07:56 ADULT Medications Given ADULT: Calcium Chloride 10 mL Route of Administration: IV Medications and Responses #3: Medication Time: 08:13 ADULT Medications Given ADULT: Atropine 1 mg Route of Administration: IV Medications and Responses #4: Medication Time: 08:15 ADULT Medications Given ADULT: Epinephrine 1 mg, Sodium Bacarbinate 50 meq Route of Administration: IV Medications and Responses #5: Medication Time: 08:18 ADULT Medications Given ADULT: Epinephrine 1 mg Route of Administration: IV Medications and Responses #6: Medication Time: 08:20 ADULT Medications Given ADULT: 2 Amps Na Bicarb Route of Administration: IV Nurses Notes [place] Coma Scale Eye Opening: None (1) [place] Coma Scale Verbal: None (1) [place] Coma Scale Motor: None (1) Pupil Reaction: Non Reactive Bedside Blood Glucose: 124 EKG Rhythm: Asystole Time Code Ended Time Code Ended: 08:22 Post Arrest Status: Outcome of code: Unsuccessful Patient pronounced by: Jose Antonio Rosado NP Time patient pronounced: 08:22 Family notified: Yes Attending called: Yes Code Team Present: DR FELIZIXHN-[id number] CODES, JOSE ANTONIO ROSADO [place] MANAGER FOR 2ND CODE TYE LANG RNAIR TURNING MACHINE FEEDER, LEWIS Malave RN ICU CHARGE, JEREMY ANDERSON RN, IRON RN, PARVIN Nichole RN RESOURCE, EDE CCT, GUZMAN RT, VERNON PATRICIA. Tye Diaz May 30, 2024 10:50
--- NOTE | 2024-05-30 11:19 | DVHDS2 ---
Discharge Summary Date of Admission May 28, 2024 at 19:49 Date of Discharge: May 30, 2024 Admitting Diagnosis Septic shock Labs/Diagnostic Data: Laboratory Results Test 05/30/24 07:57 05/30/24 06:49 05/29/24 13:35 05/29/24 03:02 POC Glucose 124 mg/dl (70-106) White Blood Count 50.6 10^3/uL (4.4-10.8) Red Blood Count 5.39 10^6/uL (4.0-5.20) Hemoglobin 14.8 g/dL (12.2-16.2) Hematocrit 45.2 % (36.0-46.0) Mean Corpuscular Volume 84.0 fL (80.0-100.0) Mean Corpuscular Hemoglobin 27.5 pg (28.0-32.0) Mean Corpuscular Hemoglobin Concent 32.7 g/dL (32.0-36.0) Red Cell Distribution Width 17.3 % (11.8-14.3) Platelet Count 333 10^3/uL (140-450) Mean Platelet Volume 7.4 fL (6.9-10.8) Neutrophils (%) (Auto) % (37.0-80.0) Lymphocytes (%) (Auto) % (10.0-50.0) Monocytes (%) (Auto) % (0.0-12.0) Basophils (%) (Auto) % (0.0-2.0) Neutrophils # (Auto) 10 ^3/uL (1.6-8.6) Lymphocytes # (Auto) 10 ^3/uL (0.4-5.4) Monocytes # (Auto) 10 ^3/uL (0-1.3) Differential Total Cells Counted 100.0 (100) Neutrophils % (Manual) 68 (37.0-80.0) Band Neutrophils % (Manual) 12 Lymphocytes % (Manual) 8 (10.0-50.0) Monocytes % (Manual) 8 (0-12) Eosinophils % (Manual) 1 (0-7) Basophils % (Manual) 0 (0.0-2.0) Metamyelocytes % (manual) 2 Myelocytes % (Manual) 1 Promyelocytes % (Manual) 0 Blast Cells % (Manual) 0 Nucleated Red Blood Cells 3.0 % Reactive Lymphocytes 0 Platelet Estimate Adequate Poikilocytosis (manual) Slight Anisocytosis (manual) Slight [place] Cells Few Sodium Level 137 mmol/L (136-145) Potassium Level 5.6 mmol/L (3.5-5.1) Chloride Level 111 mmol/L (98-107) Carbon Dioxide Level < 10 mmol/L (20-31) Anion Gap 16.01314 (5-15) Blood Urea Nitrogen 47 mg/dL (9-23) Creatinine 2.76 mg/dL (0.550-1.02) Glomerular Filtration Rate Calc 19 mL/min (>90) BUN/Creatinine Ratio 17.0 (10.0-20.0) Serum Glucose 208 mg/dL (74-106) Calcium Level 7.9 mg/dL (8.7-10.4) Magnesium Level 2.7 mg/dL (1.6-2.6) Prothrombin Time 12.3 sec (9.3-11.8) Prothrombin Time INR 1.18 (0.9-1.15) Activated Partial Thromboplast Time 38.4 SEC (24.5-34.5) Large Platelets Few Lactic Acid Level 2.6 mmol/L (0.4-2.0) Total Bilirubin 0.3 mg/dL (0.2-1.0) Aspartate Amino Transferase (AST) 18 U/L (13-40) Alanine Aminotransferase (ALT) < 9 U/L (7-40) Alkaline Phosphatase 94 U/L (46-116) Total Protein 5.1 g/dL (5.7-8.2) Albumin 2.8 g/dL (3.2-4.8) Random Vancomycin Level 11.9 ug/mL (5-10) Test 05/28/24 18:31 05/28/24 16:41 Troponin I High Sensitivity 4 ng/L (</=34) Urine Color Yellow (Yellow) Urine Clarity Clear (Clear) Urine pH 6.0 (5.0-9.0) Urine Specific [place] 1.031 (1.001-1.035) Urine Protein 1+ (Negative) Urine Ketones Trace (Negative) Urine Blood Negative /uL (Negative) Urine Nitrite Negative (Negative) Urine Bilirubin Negative (Negative) Urine Urobilinogen Normal mg/dL (Negative) Urine Leukocyte Esterase Negative /uL (Negative) Urine RBC 2 /hpf (0 - 4) Urine Microscopic WBC 4 /HPF (0-5) Urine Squamous Epithelial Cells Few /hpf (<5) Urine Bacteria None seen /hpf (None Seen) Urine Mucus Few (None Seen) Urine Glucose Normal mg/dL (Normal) Other Laboratory Tests 05/30/24 06:49 Brief Hx & Hospital Course: History of Present Illness 63-year-old female presents for evaluation of altered mental status. Patient was CVA with right-sided deficits presents for after being noted to be progressively more altered at the SNF where she resides. It is unknown what is the patient's baseline. Currently she is lethargic and does not follow commands. Course of hospitalization: Patient was transfer from half-way facility with severe sepsis, aspiration pneumonia, septic shock, AFib RVR. Patient had worsening status with patient having initial rapid response being transferred to ICU placed on vasopressor therapy as well as amiodarone drip. Patient had worsening clinical status with respect to tachypnea, subsequently undergoing cardiopulmonary arrest x2 occasions. Patient was successfully intubated, with ROSC obtain at one point, with the patient having 2nd cardiopulmonary arrest which was unsuccessful. Family was made aware. Total time spent with patient discussing and formulating plan of care: 35 minutes. This medical document was created using an electronic medical record system with [employer] dictation system. Although this document has been carefully reviewed, there may still be some phonetic and typographical errors. These areas are purely typographical due to imperfections of the software programs, and do not reflect any compromise in the patient's medical care. Condition at Discharge: Poor Final Diagnosis/Problems List Septic shock with cardiopulmonary arrest Secondary diagnosis: -acute hypoxic respiratory failure -AFib with RVR -septic shock -probable aspiration pneumonia -history of CVA -recent cervical spinal surgery -recent history of ESBL -right-sided hemiplegia -acute kidney injury, probable vasomotor nephropathy Discharge Disposition: at Hospital [facility] Discharge Statement: "Patient was advised to return to the ER or call 911 if any headaches, dizziness, shortness of breath, chest pain, abdominal pain, bleeding, fevers, or worsening of medical condition. Patient was counseled about treatment plan, medications, possible side effects, patientverbalized understanding. All questions were answered to the best of my ability. This discharge took greater then 30 minutes in planning, reviewing documentation, counseling the patient, and discussing with other team members." ASSESSMENT ASSESSMENT Assessment Date of Service: May 30, 2024 Billing Provider: HUMBERTO JARQUIN NP Common Visit Codes: 75330-FTW/OBS DISCH DAY >30min HUMBERTO JARQUIN NP May 30, 2024 11:19
--- NOTE | 2024-05-30 14:03 | ECG ---
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
[2024-05-30] MEDS ORDERED: PIPERACILLIN-TAZOB 3.375GM 100 ML IV SCH (17:00)
[2024-05-30] MEDS ORDERED: BUMETANIDE 1mg/4ml VIAL (0.25mg/ml) IV SCH (18:00)
[2024-05-31 07:11] LABS: White Blood Cell 50.6 10^3/uL (4.4-10.8)
== END 2024-05-30 16:30 | DRG 720 ==
LOC: ER 14:37 → EDBD 14:37 → OVERFLOW 19:49 → TELE-CENTR 22:16 → ICU CENTRL 05-29 02:00
PROVIDERS: ADMIT Nurse Practitioner Acute Care; ATTEND Nurse Practitioner Acute Care
PROC: 02HV33Z Insertion of Infusion Device into Superior Vena Cava, Percutaneous Approach (ICD-10-PCS; 2024-05-29)
PROC: B548ZZA Ultrasonography of Superior Vena Cava, Guidance (ICD-10-PCS; 2024-05-29)
PROC: 5A12012 Performance of Cardiac Output, Single, Manual (ICD-10-PCS; principal; 2024-05-30)
DX: A41.9 Sepsis, unspecified organism (principal); J96.01 Acute respiratory failure with hypoxia; N17.0 Acute kidney failure with tubular necrosis; J69.0 Pneumonitis due to inhalation of food and vomit; R65.21 Severe sepsis with septic shock; G93.41 Metabolic encephalopathy; G81.91 Hemiplegia, unspecified affecting right dominant side; J18.9 Pneumonia, unspecified organism; I46.9 Cardiac arrest, cause unspecified; E11.9 Type 2 diabetes mellitus without complications; I48.91 Unspecified atrial fibrillation; N39.0 Urinary tract infection, site not specified; I10 Essential (primary) hypertension; Z79.2 Long term (current) use of antibiotics; Z79.82 Long term (current) use of aspirin; Z79.84 Long term (current) use of oral hypoglycemic drugs; Z86.73 Personal history of transient ischemic attack (TIA), and cerebral infarction without residual deficits; Z86.19 Personal history of other infectious and parasitic diseases
CPT/HCPCS: 36415; 36569; 70450; 71045; 76937; 80048; 80053; 80202; 81001; 82962; 83605; 83735; 84484; 85007; 85027; 85610; 85730; 87040; 87081; 87086; 92950; 93005; 96365; 96375; 99291; G0378; J0692; J1815; J2405; J2543